=== PATIENT | male | born 1950 | race Caucasian/White ===

== ENCOUNTER → 2019-09-25 08:23 | Outpatient (BNVA) | payer MEDICARE, SELFPAY | PROVIDERS: PCP Urology; Visit Provider Urology | DX: R35.0 Frequency of micturition (principal); C61 Malignant neoplasm of prostate; Z87.898 Personal history of other specified conditions | CPT/HCPCS: 81001; 84153 ==

== ENCOUNTER → 2020-03-30 08:12 | Outpatient (BNVA) | payer MEDICARE, SELFPAY | PROVIDERS: PCP Urology; Visit Provider Urology | DX: C61 Malignant neoplasm of prostate (principal); R39.9 Unspecified symptoms and signs involving the genitourinary system; Z87.448 Personal history of other diseases of urinary system | CPT/HCPCS: 84153 ==

== ENCOUNTER → 2020-09-28 09:07 | Outpatient (BNVA) | payer MEDICARE, SELFPAY | PROVIDERS: Visit Provider Urology | DX: C61 Malignant neoplasm of prostate (principal); R39.9 Unspecified symptoms and signs involving the genitourinary system; Z87.448 Personal history of other diseases of urinary system | CPT/HCPCS: 81003; 84153 ==

== ENCOUNTER → 2021-02-03 16:30 | Outpatient (BNVA) | payer MEDICARE, SELFPAY | PROVIDERS: Visit Provider Family Medicine | DX: Z76.89 Persons encountering health services in other specified circumstances (principal); I10 Essential (primary) hypertension; Z85.46 Personal history of malignant neoplasm of prostate; M17.10 Unilateral primary osteoarthritis, unspecified knee; M54.50 Low back pain, unspecified | CPT/HCPCS: 80053; 85025 ==

== ENCOUNTER → 2021-03-31 09:39 | Outpatient (BNVA) | payer MEDICARE, SELFPAY | PROVIDERS: PCP Family Medicine; Visit Provider Urology | DX: R39.9 Unspecified symptoms and signs involving the genitourinary system (principal); C61 Malignant neoplasm of prostate; Z87.448 Personal history of other diseases of urinary system | CPT/HCPCS: 81003; 84153 ==

== ENCOUNTER → 2021-06-07 13:04 | Outpatient (BNVA) | payer MEDICARE, SELFPAY | PROVIDERS: PCP Family Medicine; Referring Provider Family Medicine; Visit Provider Orthopaedic Surgery | DX: M17.11 Unilateral primary osteoarthritis, right knee (principal) | CPT/HCPCS: 73560; 73565 ==

== ENCOUNTER → 2021-07-14 12:16 | Outpatient (BNVA) | payer MEDICARE, SELFPAY | PROVIDERS: PCP Family Medicine; Visit Provider Internal Medicine | DX: I48.91 Unspecified atrial fibrillation (principal); I65.29 Occlusion and stenosis of unspecified carotid artery; R00.1 Bradycardia, unspecified; I10 Essential (primary) hypertension; E78.2 Mixed hyperlipidemia; Z87.891 Personal history of nicotine dependence | CPT/HCPCS: 93005; 99203; 99204 ==

== ENCOUNTER → 2021-08-12 10:00 | Day surgery (SDC) | payer MEDICARE, SELFPAY ==
[2021-08-12 10:30] LABS: Basophils % 0.2 %; Eosinophils # 0.2 10^3/uL (0.0-0.8); Eosinophils % 3.3 %; Hematocrit 40.7 % (42.0-52.0); Hemoglobin 13.4 g/dL (11.7-16.6); Lymphocytes # 1.7 10^3/uL (0.8-4.8); Lymphocytes % 31.9 %; Mean Corpuscular HGB Conc 32.9 g/dL (30.0-36.0); Mean Corpuscular Volume 91.3 fl (80-94); Mean Platelet Volume 8.5 fL (7.4-10.4); Monocytes # 0.8 10^3/uL (0.2-0.9); Monocytes % 14.1 %; Neutrophils # 2.71 10^3/uL (1.8-7.7); Neutrophils % 50.1 %; Nucleated Red Blood Cells % 0 %; Platelet Count 315 10^3/cmm (130-400); Red Blood Count 4.46 10^6/uL (4.1-5.3); White Blood Count 5.4 10^3/uL (4.0-10.0)
[2021-08-12 10:44] LABS: Anion Gap 9.4 (5-19); Blood Urea Nitrogen 13 mg/dL (8-23); Calcium 9.5 mg/dL (8.5-10.5); Carbon Dioxide 32 mmol/L (22-29); Chloride 101 mmol/L (98-107); Glucose 98 mg/dL (65-115); Osmolality Calculated 286 mOsm/kg (285-295); Potassium 4.4 mmol/L (3.5-5.1); Sodium 138 mmol/L (136-145)
== END ==
PROVIDERS: Anesthesiology; PCP Family Medicine; Visit Provider Orthopaedic Surgery
DX: Z01.818 Encounter for other preprocedural examination (principal)
CPT/HCPCS: 36415; 80048; 85025; 93005

== ENCOUNTER 2021-10-10 10:19 | Outpatient (CLI) | payer MEDICARE, SELFPAY ==
--- NOTE | 2021-10-10 11:00 | USCV_ITS ---
Lauren Thornton Age: 70 Gender: M : 1950 Exam Date: 10/10/2021 10:36 Ordering Phys: Charles Malik M.D ([email or web address]) Technologist: Anabella Garza [place] [facility] [place]: Known 70% stenosis of CCA Risk Factors: Unknown Previous Vascular Surgery: None Right Brachial BP: / Left Brachial BP: / Right Left Velocity (cm/s) Spectral Plaque Velocity (cm/s) Spectral Plaque Syst/Diast Broadening Syst/Diast Broadening 92.60/ 14.30 Prox CCA 72.80 / 14.30 62.80/ 18.70 Mid CCA 95.90 / 18.70 68.40/ 16.50 Hetro Distal CCA 80.50 / 20.90 124.55/21.85 Hetro Prox ICA 53.40 / 10.10 49.10/ 10.20 Mid ICA 94.80 / 19.80 40.80/ 11.20 Distal ICA 55.50 / 17.60 215.10 Hetro ECA 84.90 1.98 ICA/CCA 0.99 Antegrade Vertebral Antegrade 48.20/ 10.10 cm/s 50.20/ 13.40 cm/s Tri Subclavian Tri 97.00 88.60 FINDINGS Comparison: none available. Abnormal waveforms and velocities right carotid system. Reversal of flow from ECA to ICA and decreased velocity right CCA. Large amount of plaque proximal to the bifurcation of right carotid. Abnormal waveform right CCA and vertebral artery and subclavian artery. Finding are likley due to obstruction at the origins of right CCA and innominate/subclavian . Still patent but not allowing sufficient blood to ICA therefore compensation from ECA. Velocity decreased in right CCA and vertebral artery. Large amount of mixed plaque in the distal right CCA may be resulting in the abnormal waveform in the CCA and reversal of flow in the ECA.That would not explain the abnormal waveform in the right subclavian and vertebral arteries. Left carotid normal velocity with mild atherosclerotic plaque. Antegrade vertebral artery. CONCLUSIONS Abnormal velocity and wavefroms right carotid system. 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 Stenois suspected at the distal CCA resulting in the ICA steal from the ECA. Suspect proximal high grade stenosis near origin of CCA and innominate artery. To explain the right vertebral and subclavian artery abnormal waveforms. Recommend CTA Carotid arteries with attention also to the great vessels from aorta. Dr. Jessica Don DO (Electronically Signed) Final Date: 10 October 2021 12:04 Amended: 10 October 2021 12:49 C
== END 2021-10-10 10:20 | disposition home or self-care (01) ==
LOC: RAD 10:20
PROVIDERS: PCP Family Medicine; Visit Provider Internal Medicine
DX: I65.23 Occlusion and stenosis of bilateral carotid arteries (principal)
CPT/HCPCS: 93880

== ENCOUNTER 2022-04-04 06:55 | Emergency (ER) | payer MEDICARE, SELFPAY ==
[2022-04-04 06:59] VITALS: BP 148/83; PULSE 104; RESP 20; TEMP 37.1; O2SAT 96; BMI 31.3
[2022-04-04 07:36] VITALS: PULSE 85; O2SAT 98
--- NOTE | 2022-04-04 07:41 | ED_ITS ---
HPI - General Adult General: Chief complaint: General Medical Stated complaint: tingling from left ear down neck Time Seen by Provider: 04/04/22 07:06 Source: patient Mode of arrival: ambulatory History of Present Illness: 71-year-old male presents emergency room with complaints of pain in his neck rating down the shoulder and into the arm. Patient has had that sensation for over a week but last night it seemed to increase by moving the arm or the neck he is able to improve it some. He has previously had a fusion after a neck injury several decades ago while in [place]. He has somewhat decreased sensation in the left arm. He has no other focal neurologic deficits. No recent new injuries to the neck. Onset (ago): week(s) Location: neck Radiation: extremity (Left shoulder and arm) Quality: burning Pain Consistency: intermittent Relieving factors: movement Exacerbating factors: none Associated symptoms: Deny chest pain, confusion, cough, diaphoresis, decreased appetite, dyspnea, fevers/chills, headache(s), malaise, nausea, rash, palpitations, seizures, short of breath, syncope, vomiting or weakness Treatments prior to arrival: none Review of Systems Const: Denies: fever(s), chills, fatigue, malaise or diaphoresis ENMT: Denies: throat pain, ear or mastoid pain, nasal discharge or nasal congestion Card: Denies: chest pain, palpitations or syncope Resp: Denies: dyspnea GI: Denies: abdominal pain, nausea or vomiting : Denies: flank pain, dysuria, urinary frequency or urinary urgency Musc: Reports: neck pain and extremity pain Skin/Breast: Denies: rash Neuro: Denies: headache(s) or confusion PFS ED PFSH: Medical History Prostate cancer Surgical History H/O cardiac radiofrequency ablation H/O cervical discectomy H/O colonoscopy H/O knee surgery Family History Mother , at age 90 No problems noted. Father , at age 66 Stroke Social History Smoking and tobacco status: never smoked Alcohol intake: current Alcohol intake frequency: few times a month Marital status: Current occupational status: disabled History of recent travel: No Physical Exam Const: COMMON NORMALS: no acute distress GENERAL APPEARANCE: cooperative and comfortable ORIENTATION/CONSCIOUSNESS: Yes awake, Yes oriented to person, Yes oriented to place and Yes oriented to time HENMT: COMMON NORMALS: normocephalic, atraumatic and hearing grossly normal bilaterally HEAD & SCALP: normocephalic and atraumatic Neck/C-Spine: COMMON NORMALS: full ROM Resp: COMMON NORMALS: normal respiratory effort, No retractions, No use of accessory muscles and clear to auscultation bilaterally AUSCULTATION: clear to auscultation bilaterally Cardio: COMMON NORMALS: regular rate, regular rhythm and No murmurs present (Cardio) RATE: regular rate RHYTHM: regular rhythm GI: COMMON NORMALS: Soft to palpation and No hepatosplenomegaly present AUSCULTATION: Yes normoactive bowel sounds PALPATION: Yes Soft to palpation, No Tenderness to palpation present (GI), No Guarding due to palpation present (GI) and Yes No hepatosplenomegaly present Extremity: COMMON NORMALS: normal to inspection, capillary refill normal, no clubbing, cyanosis or edema, no calf tenderness and no pedal edema Neuro: SENSORIUM/ORIENTATION: Yes oriented to person, Yes oriented to place and Yes oriented to time DEEP TENDON REFLEXES: Right triceps reflex intensity grade: 2+, Left triceps reflex intensity grade: 1+, Rt Biceps (C5, C6): 2+, Left biceps reflex intensity grade: 1+, Right brachioradialis reflex intensity grade: 1+ and Left brachioradialis reflex intensity grade: 0 OTHER: Patient reports slightly decreased sensation left hand compared to the right erp programmer strength is equal. Skin: COMMON NORMALS: no rashes or lesions noted GENERAL SKIN EXAM: no rashes or lesions noted Course Vital Signs: Vital signs: Vital Signs Temperature 98.8 F 04/04/22 06:59 Pulse Rate 104 H 04/04/22 06:59 Respiratory Rate 20 H 04/04/22 06:59 Blood Pressure 148/83 04/04/22 06:59 Pulse Oximetry 96 04/04/22 06:59 Oxygen Delivery Me thod 04/04/22 06:59 [facility] - General Adult Medical Decision Making On exam patient has signs of cervical radiculopathy there is no focal neurologic deficits nothing to suggest acute CVA. He has occlusion of the left carotid artery but that is diagnosed 5 to 6 months ago. He has no sign of acute CVA at this time. I think his symptoms are much more indicative of cervical nerve root irritation or compression. Offered to refer the patient to orthopedic spine surgery or neurosurgery he declined he wanted to make his own follow-up he was not sure he was really kind of pursuing things previously had surgery on his neck he states he really does not wish to pursue anything any further his biggest concern was that he may be having a stroke Medical Records I reviewed the patient's medical records. Lab Data I reviewed the patient's lab results. Discharge Plan Discharge Patient Disposition: Home Clinical Impression: Cervical radiculopathy Condition: Stable Prescriptions: New prednisone 20 mg tablet 20 mg PO TID Qty: 15 0RF Rx Instructions: 1 p.o. 3 times daily x3 days, 1 p.o. twice daily x2 days, 1 p.o. daily x2 days tizanidine 4 mg tablet 4 mg PO Q8H PRN (Reason: muscle spasticity) Qty: 20 0RF No Action omega-3 acid ethyl esters 1 gram capsule 2 cap PO BID diltiazem HCl 180 mg capsule,extended release 24 hr 180 mg PO DAILY Qty: 90 1RF uavazlpocz-nwqjkbxoa-pwsjyapff 5-160-25 mg tablet 1 tab PO DAILY Qty: 30 5RF ezetimibe 10 mg tablet 10 mg PO DAILY Qty: 30 5RF metoprolol tartrate 50 mg tablet 50 mg PO BID Qty: 60 5RF sucralfate [Carafate] 1 gram tablet 1 g PO TID Qty: 90 5RF omeprazole 20 mg capsule,delayed release(DR/EC) 20 mg PO BID Qty: 60 5RF aspirin 325 mg tablet 325 mg PO DAILY Qty: 90 3RF citalopram [Celexa] 40 mg tablet 40 mg PO DAILY Qty: 30 5RF atorvastatin 80 mg tablet 80 mg PO DAILY Qty: 30 5RF gabapentin 600 mg tablet See Rx Instructions PO TID Qty: 90 5RF Rx Instructions: Take one tab in the morning, one at noon, and one at night. cyclobenzaprine 10 mg tablet 10 mg PO TID Qty: 60 2RF amitriptyline 25 mg tablet 25 mg PO DAILY Qty: 90 2RF ropinirole 4 mg tablet See Rx Instructions .ROUTE .COMPLEX Qty: 90 1RF Dose Instruction: TAKE 1 TABLET BY MOUTH EVERY DAY Rx Instructions: TAKE 1 TABLET BY MOUTH EVERY DAY tamsulosin 0.4 mg capsule See Rx Instructions .ROUTE .COMPLEX Qty: 180 0RF Dose Instruction: TAKE 1 CAPSULE BY MOUTH TWICE DAILY Rx Instructions: TAKE 1 CAPSULE BY MOUTH TWICE DAILY Discharge Orders: Discharge ED (Routine); Ordered 04/04/22 Ordered By: Navin Freeman Referrals: Dennys Siddiqui DO [Primary Care Provider] - Patient Instructions: Opioid Safety, Pain Management Activity Restrictions/Additional Instructions: You were seen today for left arm neck and arm pain. I recommend that you fol low-up either with your primary care or the orthopedic spine surgery or neurosurgery your exam and history today are suggestive of a cervical nerve impingement. You are given muscle relaxers and steroid taper to relieve your symptoms. You can take Tylenol with these as well. If symptoms worsen or change follow-up with primary care for further imaging and evaluation if appropriate. Coding Level of Care Code ED Critical Care Unit Manager for Sky Diaz NIH stroke score NIHSS Level Of Consciousness - 1a: 0 Level Of Consciousness Questions - 1b: Both Correct Level Of Consciousness Commands - 1c: Both Correct Best Gaze - 2: Normal Visual Lopez - 3: No Visual Loss Facial Palsy - 4: Normal Motor Arm Right - 5: No Drift Motor Arm Left - 5: No Drift Motor Leg Right - 6: No Drift Motor Leg Left - 6: No Drift Limb Ataxia - 7: Absent Sensory - 8: Mild To Moderate Loss (Left hand) Best Language - 9: No Aphasia Dysarthia - 10: Normal Extinction And Inattention - 11: 0 Score Total Score: 1
[2022-04-04] MEDS: dexamethasone 10 mg/mL INJ IM (08:05)
[2022-04-04] MEDS: orphenadrine 30 mg/mL Inj 2 mL 60 MG IM (08:06)
[2022-04-04 08:11] VITALS: BP 144/89; PULSE 96; O2SAT 97
== END 2022-04-04 08:10 | disposition home or self-care (01) ==
PROVIDERS: Emergency Provider Family Medicine; PCP Family Medicine
DX: M54.12 Radiculopathy, cervical region (principal); Z79.82 Long term (current) use of aspirin; Z85.46 Personal history of malignant neoplasm of prostate
CPT/HCPCS: 96372; 99284; J1100; J2360

== ENCOUNTER 2022-04-04 08:44 | Outpatient (CLI) | payer MEDICARE, SELFPAY ==
[2022-04-04 09:39] LABS: Prostate Specific AG Urology 0.55 ng/mL (0-4)
== END 2022-04-04 08:45 | disposition home or self-care (01) ==
LOC: LAB 08:46
PROVIDERS: PCP Family Medicine; Visit Provider Urology
DX: C61 Malignant neoplasm of prostate (principal)
CPT/HCPCS: 36415; 84153

== ENCOUNTER → 2022-06-13 09:08 | Outpatient (BNVA) | payer MEDICARE, SELFPAY | PROVIDERS: PCP Family Medicine; Visit Provider Family Medicine | DX: E78.2 Mixed hyperlipidemia (principal); I10 Essential (primary) hypertension; I25.10 Atherosclerotic heart disease of native coronary artery without angina pectoris | CPT/HCPCS: 80053; 80061; 85025 ==

== ENCOUNTER → 2023-02-28 09:32 | Outpatient (BNVA) | payer MEDICARE, SELFPAY | PROVIDERS: PCP Family Medicine; Visit Provider Family Medicine | DX: C61 Malignant neoplasm of prostate (principal); I25.10 Atherosclerotic heart disease of native coronary artery without angina pectoris; Z79.899 Other long term (current) drug therapy; I48.91 Unspecified atrial fibrillation; I65.29 Occlusion and stenosis of unspecified carotid artery; E78.2 Mixed hyperlipidemia | CPT/HCPCS: 80053; 80061; 83036; 84153; 85025 ==

== ENCOUNTER 2023-03-09 13:59 | Outpatient (CLI) | payer MEDICARE, SELFPAY ==
--- NOTE | 2023-03-09 14:30 | CT_ITS ---
WS: [id number] CTA NECK TECHNIQUE: Contrast enhanced CTA of the neck with coronal and sagittal reformatted images and maximum intensity projection (MIP) images. NASCET criteria utilized. CLINICAL INFORMATION: Carotid stenosis COMPARISON: Ultrasound 10/10/2021 DLP: 477.[address] scans at [facility] use at least one of these dose optimization techniques: automated e xposure control; mA and/or kV adjustment per patient size (includes targeted exams where dose is matc hed to clinical indication); or iterative reconstruction. FINDINGS: Mild aortic arch calcification. Mild calcification of the great vessel origins which remain patent. Proximal subclavian arteries are patent. No significant stenosis of the great vessel origins . RIGHT: RIGHT common carotid artery is patent. RIGHT proximal ICA stenosis measures approximately 37%. Moderate partially calcified irregular plaque in the distal RIGHT common carotid artery extending in to the ICA. RIGHT ICA remains patent to the skull base. Retropharyngeal course of the RIGHT cervical ICA. Severe stenosis at the ECA origin which remains patent. LEFT: LEFT common carotid artery is patent. Moderate calcified plaque LEFT carotid bulb extending to the ICA. LEFT ICA remains patent to the skull base. LEFT dominant vertebral artery. Tiny hypoplastic RIGHT vertebral artery remains patent. Basilar arter y is patent. Proximal visualized [place] appears normal. Lung apices are well aerated. Paranasal sinuses and mastoid air cells are well aerated. Normal propagation worker ior nasopharynx. Moderate to advanced spondylitic changes cervical spine. IMPRESSION: 1. RIGHT ICA stenosis measures approximately 37%. 2. Severe RIGHT ECA stenosis at the origin which remains patent. 3. LEFT ICA stenosis measures approximately 35%. 4. Moderate RIGHT greater than LEFT carotid bulb calcification extending to the ICAs. Eccentric irre gular plaque in the distal RIGHT common carotid artery. 5. LEFT dominant vertebral artery. Tiny hypoplastic RIGHT vertebral artery remains patent. Vertebral arteries are patent to the basilar junction. 6. Proximal visualized [place] of [place] appears patent.
[2023-03-09] MEDS: iohexol 350 mg/mL 500 mL Btl (per mL) IV (14:35)
== END 2023-03-09 14:00 | disposition home or self-care (01) ==
LOC: RAD 14:00
PROVIDERS: PCP Family Medicine; Visit Provider Family Medicine
DX: I65.23 Occlusion and stenosis of bilateral carotid arteries (principal)
CPT/HCPCS: 70498; Q9967

== ENCOUNTER → 2023-03-29 10:10 | Outpatient (BNVA) | payer MEDICARE, SELFPAY | PROVIDERS: PCP Family Medicine; Referring Provider Family Medicine; Visit Provider Thoracic Surgery (Cardiothoracic Vascular Surgery) | DX: I65.23 Occlusion and stenosis of bilateral carotid arteries (principal) | CPT/HCPCS: 99203 ==

== ENCOUNTER 2023-12-10 07:35 | Outpatient (CLI) | payer MEDICARE, SELFPAY ==
--- NOTE | 2023-12-10 07:39 | CT_ITS ---
WS: [id number] CT HEAD NONCONTRAST HISTORY: MEMORY LOSS TECHNIQUE: Contiguous axial imaging performed through the brain in 3.0 mm imaging. Bone and soft tiss ue windows. Sagittal and coronal reformats reviewed. All CT scans at [facility] use at least one of these dose optimization techniques: automated exposure control; mA and/or kV adjustment per pa tient size (includes targeted exams where dose is matched to clinical indication); or iterative recon struction. DLP: 1158.90 mGy.cm COMPARISON: None available. No acute intracranial hemorrhage, midline shift or mass effect. Moderate bilateral symmetric atrophy and mild small vessel disease. No infarct. Ventricles: Normal size with no hydrocephalus. No inferior displacement of cerebellar tonsils. Clivus and pituitary gland are negative. Paranasal sinuses: As visualized are clear. Mastoid air cells: Well pneumatized. Calvarium and scalp: Skull is intact with no soft tissue edema or swelling. CT/CT head wo con* [id number] IMPRESSION: 1. No acute intracranial hemorrhage or edema. 2. Moderate atrophy and volume loss and mild small vessel disease.
== END 2023-12-10 07:36 | disposition home or self-care (01) ==
LOC: RAD 07:36
PROVIDERS: PCP Internal Medicine; Visit Provider Internal Medicine
DX: R41.3 Other amnesia (principal); G31.9 Degenerative disease of nervous system, unspecified
CPT/HCPCS: 70450

== ENCOUNTER 2024-06-13 06:30 | Outpatient (CLI) | payer MEDICARE, SELFPAY ==
--- NOTE | 2024-06-13 06:36 | US_ITS ---
WS: [id number] RIGHT UPPER QUADRANT ULTRASOUND HISTORY: RUQ Pain COMPARISON: 01/11/2017 Liver: 15.2 cm in length. Normal size liver and echogenicity. No bile duct dilatation or mass. Portal Vein: Normal hepatopetal flow with monophasic waveform. Gallbladder: Slightly contracted gallbladder with mild gallbladder wall thickening. No pericholecystic fluid. Gallbladder wall measures 5 mm. CBD: 0.5 cm Pancreas: Not visualized. Right kidney: 13.0 cm in length. Normal size and echogenicity. No hydronephrosis or mass. Aorta and IVC: Unremarkable abdominal aorta and IVC. No ascites. US/US abdomen limited [id number] IMPRESSION: 1. Slightly contracted gallbladder. No evidence for cholelithiasis. Gallbladde r wall thickening may be due to chronic cholecystitis cystitis or hepatocellula r disease. No ascites identified. 2. Negative liver. No intrahepatic duct dilatation.
== END 2024-06-13 06:31 | disposition home or self-care (01) ==
PROVIDERS: PCP Internal Medicine; Visit Provider Internal Medicine
DX: R10.11 Right upper quadrant pain (principal); R93.3 Abnormal findings on diagnostic imaging of other parts of digestive tract
CPT/HCPCS: 76705

== ENCOUNTER 2024-06-21 08:24 | Emergency (ER) | payer MEDICARE, SELFPAY ==
[2024-06-21 08:27] VITALS: BP 100/77; PULSE 83; RESP 17; TEMP 36.4; O2SAT 93; BMI 30.2
--- NOTE | 2024-06-21 08:46 | XRR_ITS ---
PROCEDURE INFORMATION: Exam: XR Chest Exam date and time: 06/21/2024 8:54 AM Age: 73 years old Clinical indication: Pain; Chest pressure; Additional info: Chest pain TECHNIQUE: Imaging protocol: Radiologic exam of the chest. Views: 1 view. COMPARISON: CT angio neck [id number] 03/09/2023 2:24 PM FINDINGS: Lungs: Unremarkable. No consolidation. Pleural spaces: Unremarkable. No pleural effusion. No pneumothorax. Heart/Mediastinum: The heart size is at the upper limits of normal Bones/joints: There are multiple remote fracture deformities of the right 3rd through 9th ribs. There are also mildly displaced fractures of the right lateral 5th and 6th ribs which are of indeterminate age without significant callus formation XR/XR chest 1V portable [id number] IMPRESSION: 1. Remote fracture deformities of the right 3rd through 9th ribs and mildly displaced fractures of the right lateral 5th and 6th ribs without significant callus formation which are of indeterminate age. 2. Borderline cardiomegaly without acute infiltrates
--- NOTE | 2024-06-21 08:46 | ECG_ITS ---
[facility] Test Date: 2024-06-21 Pat Name: Lauren Thornton Department: Room: Gender: Male Manager Cosmetic: : 1950 Requested By: Radha Beltran Order Number: [id number] Zackary MD: Charles Malik M.D. Measurements Intervals [place] Rate: 72 P: 0 MD: 0 QRS: 109 QRSD: 101 T: 113 QT: 420 QTc: 462 Interpretive Statements ATRIAL FIBRILLATION RIGHT AXIS DEVIATION [QRS AXIS > 100] MODERATE T-WAVE ABNORMALITY, CONSIDER ANTEROLATERAL ISCHEMIA [-0.1+ mV T-WAVE IN V3-V6] Compared to ECG 08/12/2021 10:04:44 Right-axis deviation now present T-wave abnormality now present Possible ischemia now present Sinus bradycardia no longer present Electronically Signed On 06-21-2024 18:12:24 CDT by Charles Malik M.D. [email or web address]
[2024-06-21 08:52] LABS: Basophils % 0.3 %; Eosinophils % 0.3 %; Hematocrit 46.6 % (37-53); Lymphocytes # 1.3 10^3/uL (0.8-4.8); Lymphocytes % 20.8 %; Mean Corpuscular HGB Conc 32.4 g/dL (30-55); Mean Corpuscular Hemoglobin 30.6 pg (27-33); Mean Corpuscular Volume 94.3 fl (82-101); Mean Platelet Volume 9.8 fL (7.4-10.4); Monocytes # 0.4 10^3/uL (0.2-0.9); Monocytes % 5.9 %; Neutrophils # 4.42 10^3/uL (1.8-7.7); Neutrophils % 72.5 %; Nucleated Red Blood Cells % 0 %; Platelet Count 261 10^3/cmm (157-399); Red Blood Count 4.94 10^6/uL (3.85-5.65); Red Cell Distribution Width 13.1 % (12.1-15.1)
[2024-06-21 09:08] LABS: Troponin(5th) Baseline 19 ng/L (0-15)
[2024-06-21 09:14] LABS: Alanine Aminotransferase 28 U/L (0-41); Albumin Level 4.5 g/dL (3.5-5.2); Alkaline Phosphatase 103 U/L (40-130); Aspartate Amino Transferase 29 U/L (0-40); Blood Urea Nitrogen 15 mg/dL (8-23); Calcium 9.3 mg/dL (8.5-10.5); Carbon Dioxide 24 mmol/L (22-29); Chloride 101 mmol/L (98-107); Creatinine Clr Calc Pharmacy 76.2971; Globulin 2.4 g/dL (1.3-4.6); Glucose 200 mg/dL (65-115); Lipase 174 U/L (13-60); NT Pro B Type Natriuretic Pept 2328 pg/mL (0-125); Osmolality Calculated 286 mOsm/kg (285-295); Sodium 135 mmol/L (136-145); Total Bilirubin 0.5 mg/dL (0.15-1.2); Total Protein 6.9 g/dL (6.6-8.7)
[2024-06-21 09:16] LABS: Anion Gap 14.9 (5-19); Potassium 4.9 mmol/L (3.5-5.1)
--- NOTE | 2024-06-21 10:46 | ECG_ITS ---
[email or web address]24[facility]21 Pat Name: Lauren Thornton Department: Room: Gender: Male Director Of [employer]: : 1950 Requested By: Radha Beltran Order Number: [id number] Reading MD: GARRETT WILSON Measurements Intervals [place] Rate: 81 P: 0 WI: 0 QRS: 107 QRSD: 96 T: 109 QT: 409 QTc: 477 Interpretive Statements ATRIAL FIBRILLATION RIGHT AXIS DEVIATION [QRS AXIS > 100] MODERATE T-WAVE ABNORMALITY, CONSIDER LATERAL ISCHEMIA [-0.1+ mV T-WAVE IN I/aVL/V5/V6] Compared to ECG 06/21/2024 08:27:48 No significant changes Electronically Signed On 06-22-2024 22:05:49 CDT by GARRETT WILSON [email or web address]
[2024-06-21 11:11] LABS: Troponin 5 2HR 11.97 ng/L (0-15)
[2024-06-21 11:12] LABS: Troponin 5 2HR Delta -7.03 ABS# (0-10)
[2024-06-21 11:52] VITALS: BP 100/74; BP 106/78; BP 120/68; PULSE 85; PULSE 87; PULSE 98
--- NOTE | 2024-06-21 12:51 | W.ED.CHESTPA ---
HPI - Chest Pain General: Chief Complaint: Chest Pain Stated Complaint: cp Time Seen by Provider: 06/21/24 08:31 History of Present Illness: This patient is a 73-year-old male presenting with symptoms of his A-fib. He reports that he has been feeling lightheaded, short of breath, getting chest discomfort when he gets up and moves around. It does not usually happen when he is at rest. It does not always happen when he gets up but happens most of the time. This has been going on for some time but has been worse in the last couple of days. He has a history of atrial fibrillation. He has had an ablation. His medical care over the past few years has been done in [place]. He is supposed to be getting an angio after he had an echo showing a valve problem. He has never had any stents placed. He also says that he has a lifelong history of stomach ulcers. He has been having symptoms of his ulcers acting up including black stools and pain. He stopped taking all of my medicines several days ago because of the symptoms and the symptoms have now resolved. He says his stomach feels fine and he is no longer having the black stools. He restarted his medications last night. His symptoms related to his A-fib seem to be worse today. Related Data Home Medications ?Medication ?Instructions ?Recorded ?Confirmed atorvastatin 40 mg tablet 40 mg PO DAILY 06/21/24 06/21/24 fluticasone furoate 100 1 ea inhalation DAILY 06/21/24 06/21/24 mcg-vilanterol 25 mcg/dose inhalation powder (Breo Ellipta) tamsulosin 0.4 mg capsule 0.4 mg PO BID 06/21/24 06/21/24 Previous Rx's ?Medication ?Instructions ?Recorded ropinirole 4 mg tablet See Rx Instructions .Route 05/11/23 .COMPLEX #90 tabs omeprazole 20 mg capsule,delayed See Rx Instructions .Route 05/21/23 release .COMPLEX #180 caps Allergies Allergy/AdvReac Type Severity Reaction Status Date / Time codeine Allergy unknown Verified 03/29/23 10:39 rosuvastatin Allergy Unknown Verified 03/29/23 10:39 [facility] ED PFS: Medical History Prostate cancer Surgical History H/O colonoscopy H/O cardiac radiofrequency ablation H/O knee surgery H/O cervical discectomy Family History Mother , at age 90 No problems noted. Father , at age 66 Stroke Social History Smoking and tobacco/nicotine status: never used tobacco/nicotine Alcohol intake: current Alcohol intake frequency: few times a month Substance/Drug Use: current Substance/Drug use frequency: daily Marital status: Current occupational status: disabled Physical Exam Const: COMMON NORMALS: no acute distress, patient oriented x3, no limitations and alert GENERAL APPEARANCE: cooperative and comfortable HENMT: HEAD & SCALP: normal to inspection FACE & SINUS: normal facial exam Eye: GENERAL EYE: appearance normal, both eyes and all related structures Neck/C-Spine: COMMON NORMALS: supple, no meningeal signs and no JVD Chest: COMMONS NORMALS: normal inspection of the chest Resp: COMMON NORMALS: normal respiratory effort, No use of accessory muscles and clear to auscultation bilaterally AUSCULTATION: clear to auscultation bilaterally Cardio: COMMON NORMALS: no JVD, regular rate, regular rhythm and No murmurs present (Cardio) RATE: regular rate RHYTHM: regular rhythm GI: COMMON NORMALS: Normal to inspection, nondistended, normoactive bowel sounds present, Soft to palpation and non-tender INSPECTION: Yes normal to inspection AUSCULTATION: Yes normoactive bowel sounds PALPATION: Yes Soft to palpation Back/Pelvis: COMMON NORMALS: thoracic and lumbar spine normal to inspection Extremity: COMMON NORMALS: normal to inspection Neuro: COMMON NORMALS: patient oriented x3, moves all extremities, no focal motor deficits and no sensory deficits noted SENSORIUM/ORIENTATION: Yes alert MENINGEAL SIGNS: Yes no meningeal signs Psych: COMMON NORMALS: mental status grossly normal, cooperative and normal affect Skin: COMMON NORMALS: no rashes or lesions noted and turgor normal GENERAL SKIN EXAM: no rashes or lesions noted and turgor normal Course Vital Signs: Vital signs: Vital Signs Temperature 97.6 F 06/21/24 08:27 Pulse Rate 93 06/21/24 13:02 Respiratory Rate 17 06/21/24 08:27 Blood Pressure 97/54 06/21/24 13:02 Pulse Oximetry 96 06/21/24 13:02 Oxygen Delivery Me thod Room Air 06/21/24 13:02 MDM - Chest Pain Medical Decision Making This patient is presenting with concerning symptoms of exertional dyspnea and chest heaviness but these occur with just simply standing up and walking. He does have a history of A-fib and an ablation. His EKG today is significantly different from previous but the most recent we have here is about 3 years ago and was prior to his ablation. There were no serial changes to the EKG here. Troponin was negative for any change management administrator the first 2 samples. I discussed options with the patient. He is feeling better and feels like he could go home. 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 Given his overall negative workup here I think he is safe to go home. He was able to ambulate in the ED without any significant symptoms. Lab Data 06/21/24 08:42 06/21/24 08:42 Radiology Impressions Chest X-Ray 06/21/24 08:46 IMPRESSION: 1. Remote fracture deformities of the right 3rd through 9th ribs and mildly displaced fractures of the right lateral 5th and 6th ribs without significant callus formation which are of indeterminate age. 2. Borderline cardiomegaly without acute infiltrates Laboratory Results WBC 6.10 10^3/uL (3.29-11.43) 06/21/24 08:42 RBC 4.94 10^6/uL (3.85-5.65) 06/21/24 08:42 Hgb 15.10 g/dL (11.27-16.99) 06/21/24 08:42 Hct 46.6 % (37-53) 06/21/24 08:42 MCV 94.3 fl (82-101) 06/21/24 08:42 MCH 30.6 pg (27-33) 06/21/24 08:42 MCHC 32.4 g/dL (30-55) 06/21/24 08:42 RDW 13.1 % (12.1-15.1) 06/21/24 08:42 Plt Count 261 10^3/cmm (157-399) 06/21/24 08:42 MPV 9.8 fL (7.4-10.4) 06/21/24 08:42 Neut % (Auto) 72.5 % 06/21/24 08:42 Lymph % (Auto) 20.8 % 06/21/24 08:42 [place] % (Auto) 5.9 % 06/21/24 08:42 Eos % (Auto) 0.3 % 06/21/24 08:42 Baso % (Auto) 0.3 % 06/21/24 08:42 Neut # (Auto) 4.42 10^3/uL (1.8-7.7) 06/21/24 08:42 Lymph # (Auto) 1.3 10^3/uL (0.8-4.8) 06/21/24 08:42 [place] # (Auto) 0.4 10^3/uL (0.2-0.9) 06/21/24 08:42 Eos # (Auto) 0.0 10^3/uL (0.0-0.8) 06/21/24 08:42 Baso # (Auto) 0.0 10^3/uL (0.0-0.1) 06/21/24 08:42 Nucleated RBC % (auto) 0 % 06/21/24 08:42 Nucleated RBCs # 0.0 /100WBC 06/21/24 08:42 PT 14.00 SECONDS (12.1-14.9) 06/21/24 08:42 INR 1.00 (0.8-1.2) 06/21/24 08:42 Sodium 135 mmol/L (136-145) L 06/21/24 08:42 Potassium 4.9 mmol/L (3.5-5.1) 06/21/24 08:42 Chloride 101 mmol/L (98-107) 06/21/24 08:42 Carbon Dioxide 24 mmol/L (22-29) 06/21/24 08:42 Anion Gap 14.9 (5-19) 06/21/24 08:42 BUN 15 mg/dL (8-23) 06/21/24 08:42 Creatinine 1.0 mg/dL (0.7-1.2) 06/21/24 08:42 GFR Calculation Not Reportable 06/21/24 08:42 Glucose 200 mg/dL (65-115) H 06/21/24 08:42 Calculated Osmolality 286 mOsm/kg (285-295) 06/21/24 08:42 Calcium 9.3 mg/dL (8.5-10.5) 06/21/24 08:42 Total Bilirubin 0.5 mg/dL (0.15-1.2) 06/21/24 08:42 AST 29 U/L (0-40) 06/21/24 08:42 ALT 28 U/L (0-41) 06/21/24 08:42 Alkaline Phosphatase 103 U/L (40-130) 06/21/24 08:42 Troponin T Baseline 19 ng/L (0-15) H 06/21/24 08:42 Troponin T 120 Minute 11.97 ng/L (0-15) 06/21/24 10:47 Delta Troponin T -7.03 ABS# (0-10) L 06/21/24 10:47 NT-Pro-B Natriuret Pep 2328 pg/mL (0-125) H 06/21/24 08:42 Total Protein 6.9 g/dL (6.6-8.7) 06/21/24 08:42 Albumin 4.5 g/dL (3.5-5.2) 06/21/24 08:42 Globulin 2.4 g/dL (1.3-4.6) 06/21/24 08:42 Lipase 174 U/L (13-60) H 06/21/24 08:42 All radiology interpretation(s) finalized by discharge Discharge Plan Discharge Patient Disposition: Home Clinical Impression: Atrial fibrillation, Acute dyspnea Condition: Stable Prescriptions: No Action ropinirole 4 mg tablet See Rx Instructions .ROUTE .COMPLEX Qty: 90 3RF Dose Instruction: TAKE 1 TABLET BY MOUTH EVERY DAY Rx Instructions: TAKE 1 TABLET BY MOUTH EVERY DAY omeprazole 20 mg capsule,delayed release(DR/EC) See Rx Instructions .ROUTE .COMPLEX Qty: 180 3RF Dose Instruction: TAKE 1 CAPSULE BY MOUTH TWICE A DAY Rx Instructions: TAKE 1 CAPSULE BY MOUTH TWICE A DAY atorvastatin 40 mg tablet 40 mg PO DAILY tamsulosin 0.4 mg capsule 0.4 mg PO BID fluticasone furoate-vilanterol [Breo Ellipta] 100-25 mcg/dose blister with device 1 ea INHALATION DAILY Discharge Orders: Discharge ED (Routine); Ordered 06/21/24 Ordered By: Radha Santo Referrals: Antonio Villalba MD [Primary Care Provider] - Patient Instructions: Opioid Safety, Pain Management Activity Restrictions/Additional Instructions: Follow up with your journeyman pipe welder - call on Sunday to let them know about this ED visit. Follow up with Dr. Villalba as well. Print Language: Uzbek Coding Level of Care Code ED Pony Worker for Sky Diaz
[2024-06-21 13:02] VITALS: BP 97/54; PULSE 93; O2SAT 96
== END 2024-06-21 14:10 | disposition home or self-care (01) ==
PROVIDERS: Emergency Provider Emergency Medicine; PCP Internal Medicine
DX: I48.91 Unspecified atrial fibrillation (principal); R06.00 Dyspnea, unspecified; Z85.46 Personal history of malignant neoplasm of prostate
CPT/HCPCS: 36415; 71045; 80053; 83690; 83880; 84484; 85025; 85610; 93005; 99285

== ENCOUNTER 2024-07-14 09:21 | Inpatient (IN) | payer MEDICARE, SELFPAY ==
[2024-07-14] VITALS (45 sets, daily range): BP systolic 87–169; BP diastolic 55–110; PULSE 114–197; RESP 17–33; TEMP 35.9–36.6; O2SAT 88–100; BMI 29.5
--- NOTE | 2024-07-14 09:27 | ECG_ITS ---
[facility] Test Date: 2024-07-14 Pat Name: Luaren Thornton Department: Room: Gender: Male [employer]: : 1950 Requested By: Zoe Eaton Order Number: [id number] Reading MD: GARRETT WILSON Measurements Intervals [place] Rate: 202 P: 0 FL: 0 QRS: 116 QRSD: 98 T: 51 QT: 231 QTc: 423 Interpretive Statements ATRIAL FIBRILLATION WITH RAPID VENTRICULAR RESPONSE POSSIBLE RIGHT VENTRICULAR HYPERTROPHY [SOME/ALL OF: PROMINENT R IN V1, LATE TRANSITION, RAD, AARON, SSS] LATERAL MYOCARDIAL INFARCTION , PROBABLY OLD [40+ ms Q WAVE AND/OR ST/T ABNORMALITY IN I/aVL/V5/V6] CRITICAL TEST RESULT Compared to ECG 06/21/2024 10:49:26 Myocardial infarct finding now present Right-axis deviation no longer present T-wave abnormality no longer present Possible ischemia no longer present Electronically Signed On 07-14-2024 20:58:14 CDT by GARRETT WILSON [email or web address]
--- NOTE | 2024-07-14 09:28 | XRR_ITS ---
PROCEDURE INFORMATION: Exam: XR Chest Exam date and time: 07/14/2024 10:02 AM Age: 73 years old Clinical indication: Shortness of breath; SOB afib, HX of prostate cancer; Additional info: Chest pain TECHNIQUE: Imaging protocol: Radiologic exam of the chest. Views: 1 view. COMPARISON: CR (CHEST, ) 06/21/2024 8:54 AM FINDINGS: Lungs: Bibasilar opacities and interstitial prominence in the mid and lower lung zones. Pleural spaces: No pleural effusion. No pneumothorax. Heart/Mediastinum: Mild cardiomegaly. Aortic calcifications. Bones/joints: Multiple remote right-sided rib fractures. There are also displaced right 5th and 6th lateral rib fractures without appreciable callus formation again demonstrated, subacute versus remote. XR/XR chest 1V portable [id number] IMPRESSION: 1. Bibasilar opacities and interstitial prominence which may be secondary to infectious/inflammatory process and/or pulmonary edema with atelectasis. 2. Mild cardiomegaly. 3. Remote and age-indeterminate right-sided rib fractures are again demonstrated as above.
[2024-07-14] MEDS: dilTIAZem 5 mg/mL SDV 5 mL 20 MG IVP (09:45)
[2024-07-14 09:46] LABS: Basophils % 0.3 %; Hematocrit 50.8 % (37-53); Lymphocytes # 1.1 10^3/uL (0.8-4.8); Lymphocytes % 14.8 %; Mean Corpuscular HGB Conc 32.1 g/dL (30-55); Mean Corpuscular Hemoglobin 30.1 pg (27-33); Mean Corpuscular Volume 93.9 fl (82-101); Mean Platelet Volume 10.1 fL (7.4-10.4); Monocytes # 0.5 10^3/uL (0.2-0.9); Monocytes % 7.4 %; Neutrophils # 5.62 10^3/uL (1.8-7.7); Neutrophils % 77.2 %; Nucleated Red Blood Cells % 0 %; Platelet Count 273 10^3/cmm (157-399); Red Blood Count 5.41 10^6/uL (3.85-5.65); Red Cell Distribution Width 13.2 % (12.1-15.1); White Blood Count 7.28 10^3/uL (3.29-11.43)
[2024-07-14] MEDS: dilTIAZem 100 MG in sodium chloride 0.9% (add-van) 100 ML IV (09:51)
--- NOTE | 2024-07-14 09:51 | W.ED.ARRPALP ---
Documented by User: ISRAEL Humphrey 07/14/24 11:10 HPI - Arrhythmia/Palpitations General: Chief Complaint: Arrhythmia/Palpitations Stated Complaint: sob, afib Time Seen by Provider: 07/14/24 09:23 Source: patient Mode of arrival: wheelchair Limitations: no limitations History of Present Illness: Patient is a 73-year-old male with history of atrial fibrillation-s/p ablation, hypertension, hyperlipidemia and carotid artery disease here for complaints of shortness of breath and palpitations. He arrives with a heart rate of 180-200 in A-fib with RVR. He tells me he is not on any medications for his atrial fibrillation due to unwanted side effects. He is not on anticoagulation. He states he was seeing cardiology through [facility] but cannot continue to drive that far. He has requested primary care placed referral for cardiology here at [facility] but this has not been completed. He states his only medications at this time are ropinirole and omeprazole. MD complaint: rapid heart beat, heart racing , palpitations, irregular heart beat and atrial fibrillation Onset (ago): month(s) Duration: intermittent Severity: moderate Context: occurred during rest Arrhythmia history: atrial fibrillation and history of ablation Associated symptoms: Reports short of breath; Deny pre-syncope or syncope Related Data Home Medications ?Medication ?Instructions ?Recorded ?Confirmed atorvastatin 40 mg tablet 40 mg PO DAILY 06/21/24 07/14/24 fluticasone furoate 100 1 ea inhalation DAILY 06/21/24 07/14/24 mcg-vilanterol 25 mcg/dose inhalation powder (Breo Ellipta) tamsulosin 0.4 mg capsule 0.4 mg PO BID 06/21/24 07/14/24 nebivolol 5 mg tablet 5 mg PO DAILY 07/14/24 07/14/24 ropinirole 4 mg tablet 4 mg PO DAILY 07/14/24 07/14/24 Previous Rx's ?Medication ?Instructions ?Recorded omeprazole 20 mg capsule,delayed See Rx Instructions .Route 05/21/23 release .COMPLEX #180 caps Allergies Allergy/AdvReac Type Severity Reaction Status Date / Time codeine Allergy unknown Verified 03/29/23 10:39 rosuvastatin Allergy Unknown Verified 03/29/23 10:39 Review of Systems Const: Denies: fever(s), chills, body aches, fatigue or malaise Card: Reports: palpitations and irregular heart rhythm; Denies: chest pain, edema, swelling of feet/ankles, syncope, pre-syncope or orthopnea Resp: Reports: dyspnea GI: Denies: abdominal pain Musc: Denies: neck pain, back pain, extremity pain or joint swelling Skin/Breast: Denies: rash Neuro: Denies: headache(s), numbness in extremities, weakness in extremities, sensory changes or dizziness PFSH ED PFSH: Medical History Prostate cancer Surgical History H/O colonoscopy H/O cardiac radiofrequency ablation H/O knee surgery H/O cervical discectomy Family History Mother , at age 90 No problems noted. Father , at age 66 Stroke Social History (Updated 07/14/24 @ 15:03 by Keyon Song MD) Smoking and tobacco/nicotine status: former use of tobacco/nicotine Alcohol intake: current Alcohol intake frequency: few times a month Substance/Drug Use: current Substance/Drug use frequency: daily Marital status: Current occupational status: disabled Physical Exam Const: COMMON NORMALS: no acute distress, average body habitus, patient oriented x3, no limitations, healthy appearing, alert and well nourished ORIENTATION/CONSCIOUSNESS: Yes awake, Yes oriented to person, Yes oriented to place and Yes oriented to time Chest: COMMONS NORMALS: normal inspection of the chest and normal palpation of entire chest wall Resp: COMMON NORMALS: normal respiratory effort and clear to auscultation bilaterally AUSCULTATION: clear to auscultation bilaterally Cardio: RATE: tachycardic RHYTHM: abnormal rhythm irregularly irregular GI: COMMON NORMALS: Normal to inspection, nondistended, normoactive bowel sounds present, Soft to palpation, non-tender and no masses PALPATION: Yes Soft to palpation Extremity: COMMON NORMALS: no clubbing, cyanosis or edema, no calf tenderness and no pedal edema GENERAL: Yes normal exam except as noted Neuro: VIDA COMA SCALE: document GCS findings [place] coma scale eye opening: Spontaneous [place] coma scale verbal response: Orientated Vida coma scale motor response: Obey commands Vida coma scale total score: 15 COMMON NORMALS: patient oriented x3, moves all extremities, no focal motor deficits and no sensory deficits noted SENSORIUM/ORIENTATION: Yes alert, Yes oriented to person, Yes oriented to place and Yes oriented to time Course Vital Signs: Vital signs: Vital Signs Temperature 97.6 F 07/14/24 11:30 Pulse Rate 135 H 07/14/24 14:00 Respiratory Rate 22 H 07/14/24 12:15 Blood Pressure 121/91 07/14/24 12:30 Pulse Oximetry 92 07/14/24 12:15 Oxygen Delivery Me thod Room Air 07/14/24 12:28 MDM - Arrhythmia/Palpitations Medical Decision Making Patient is a 73-year-old male with a history of atrial fibrillation/history of cardiac ablation. [facility] with RVR with rates of 180s to over 200. He does not take any medications currently for his atrial fibrillation. Patient was initially given an IV Cardizem bolus and started on a drip. He later returned with rates in the 140s 150s. Amiodarone bolus and drip was ordered however shortly after this he returned down to acceptable rates so we will hold off on switching at this time. CXR showing bibasilar opacities could be secondary to infectious/inflammatory process or pulmonary edema. BNP is elevated at over 7000. Echocardiogram is ordered. Dr. Song will admit patient to ICU. Dr. Freeman aware of patient and will place admit orders. Medical Records I reviewed the patient's medical records. Lab Data I reviewed the patient's lab results. 07/14/24 09:42 07/14/24 09:42 Radiology Impressions Chest X-Ray 07/14/24 09:28 IMPRESSION: 1. Bibasilar opacities and interstitial prominence which may be secondary to infectious/inflammatory process and/or pulmonary edema with atelectasis. 2. Mild cardiomegaly. 3. Remote and age-indeterminate right-sided rib fractures are again demonstrated as above. Laboratory Results WBC 7.28 10^3/uL (3.29-11.43) 07/14/24 09:42 RBC 5.41 10^6/uL (3.85-5.65) 07/14/24 09:42 Hgb 16.30 g/dL (11.27-16.99) 07/14/24 09:42 Hct 50.8 % (37-53) 07/14/24 09:42 MCV 93.9 fl (82-101) 07/14/24 09:42 MCH 30.1 pg (27-33) 07/14/24 09:42 MCHC 32.1 g/dL (30-55) 07/14/24 09:42 RDW 13.2 % (12.1-15.1) 07/14/24 09:42 Plt Count 273 10^3/cmm (157-399) 07/14/24 09:42 MPV 10.1 fL (7.4-10.4) 07/14/24 09:42 Neut % (Auto) 77.2 % 07/14/24 09:42 Lymph % (Auto) 14.8 % 07/14/24 09:42 [place] % (Auto) 7.4 % 07/14/24 09:42 Eos % (Auto) 0.0 % 07/14/24 09:42 Baso % (Auto) 0.3 % 07/14/24 09:42 Neut # (Auto) 5.62 10^3/uL (1.8-7.7) 07/14/24 09:42 Lymph # (Auto) 1.1 10^3/uL (0.8-4.8) 07/14/24 09:42 [place] # (Auto) 0.5 10^3/uL (0.2-0.9) 07/14/24 09:42 Eos # (Auto) 0.0 10^3/uL (0.0-0.8) 07/14/24 09:42 Baso # (Auto) 0.0 10^3/uL (0.0-0.1) 07/14/24 09:42 Nucleated RBC % (auto) 0 % 07/14/24 09:42 Nucleated RBCs # 0.0 /100WBC 07/14/24 09:42 Sodium 135 mmol/L (136-145) L 07/14/24 09:42 Potassium 4.6 mmol/L (3.5-5.1) 07/14/24 09:42 Chloride 98 mmol/L (98-107) 07/14/24 09:42 Carbon Dioxide 20 mmol/L (22-29) L 07/14/24 09:42 Anion Gap 21.6 (5-19) H 07/14/24 09:42 BUN 14 mg/dL (8-23) 07/14/24 09:42 Creatinine 0.8 mg/dL (0.7-1.2) 07/14/24 09:42 GFR Calculation Not Reportable 07/14/24 09:42 Glucose 197 mg/dL (65-115) H 07/14/24 09:42 Calculated Osmolality 286 mOsm/kg (285-295) 07/14/24 09:42 Calcium 9.2 mg/dL (8.5-10.5) 07/14/24 09:42 Magnesium 2.1 mg/dL (1.7-2.3) 07/14/24 09:42 Total Bilirubin 0.7 mg/dL (0.15-1.2) 07/14/24 09:42 AST 28 U/L (0-40) 07/14/24 09:42 ALT 29 U/L (0-41) 07/14/24 09:42 Alkaline Phosphatase 113 U/L (40-130) 07/14/24 09:42 Troponin T Baseline 62 ng/L (0-15) H 07/14/24 09:42 NT-Pro-B Natriuret Pep 7137 pg/mL (0-125) H 07/14/24 09:42 Total Protein 6.7 g/dL (6.6-8.7) 07/14/24 09:42 Albumin 4.4 g/dL (3.5-5.2) 07/14/24 09:42 Globulin 2.3 g/dL (1.3-4.6) 07/14/24 09:42 TSH 2.57 uIU/mL (0.27-4.20) 07/14/24 09:42 All radiology interpretation(s) finalized by discharge Discharge Plan Discharge Patient Disposition: Admitted As Inpatient Admit Provider: Keyon Song Clinical Impression: Atrial fibrillation with RVR Condition: Stable Coding Level of Care Code ED Dowel Pointer for Chg Fwd Documented by User: Navin Freeman DO 07/14/24 16:14 HPI - Arrhythmia/Palpitations General: Chief Complaint: Arrhythmia/Palpitations Stated Complaint: sob, afib Time Seen by Provider: 07/14/24 09:23 Related Data Home Medications ?Medication ?Instructions ?Recorded ?Confirmed atorvastatin 40 mg tablet 40 mg PO DAILY 06/21/24 07/14/24 fluticasone furoate 100 1 ea inhalation DAILY 06/21/24 07/14/24 mcg-vilanterol 25 mcg/dose inhalation powder (Breo Ellipta) tamsulosin 0.4 mg capsule 0.4 mg PO BID 06/21/24 07/14/24 nebivolol 5 mg tablet 5 mg PO DAILY 07/14/24 07/14/24 ropinirole 4 mg tablet 4 mg PO DAILY 07/14/24 07/14/24 Previous Rx's ?Medication ?Instructions ?Recorded omeprazole 20 mg capsule,delayed See Rx Instructions .Route 05/21/23 release .COMPLEX #180 caps Allergies Allergy/AdvReac Type Severity Reaction Status Date / Time codeine Allergy unknown Verified 03/29/23 10:39 rosuvastatin Allergy Unknown Verified 03/29/23 10:39 PFS ED PFSH: Medical History Prostate cancer Surgical History H/O colonoscopy H/O cardiac radiofrequency ablation H/O knee surgery H/O cervical discectomy Family History Mother , at age 90 No problems noted. Father , at age 66 Stroke Social History (Updated 07/14/24 @ 15:03 by Keyon Song MD) Smoking and tobacco/nicotine status: former use of tobacco/nicotine Alcohol intake: current Alcohol intake frequency: few times a month Substance/Drug Use: current Substance/Drug use frequency: daily Marital status: Current occupational status: disabled Physical Exam Neuro: VIDA COMA SCALE: document GCS findings [place] coma scale total score: 15 Course Vital Signs: Vital signs: Vital Signs Temperature 97.6 F 07/14/24 11:30 Pulse Rate 135 H 07/14/24 14:00 Respiratory Rate 22 H 07/14/24 12:15 Blood Pressure 121/91 07/14/24 12:30 Pulse Oximetry 92 07/14/24 12:15 Oxygen Delivery Me thod Room Air 07/14/24 12:28 MDM - Arrhythmia/Palpitations Medical Decision Making Patient is a 73-year-old male with a history of atrial fibrillation/history of cardiac ablation. He [facility] today in [facility] with RVR with rates of 180s to over 200. He does not take any medications currently for his atrial fibrillation. Patient was initially given an IV Cardizem bolus and started on a drip. He later returned with rates in the 140s 150s. Amiodarone bolus and drip was ordered however shortly after this he returned down to acceptable rates so we will hold off on switching at this time. CXR showing bibasilar opacities could be secondary to infectious/inflammatory process or pulmonary edema. BNP is elevated at over 7000. Echocardiogram is ordered. Dr. Song will admit patient to ICU. Dr. Freeman aware of patient and will place admit orders. Chart reviewed and patient discussed with midlevel. Agree with assessment and plan. Lab Data 07/14/24 09:42 07/14/24 09:42 Radiology Impressions Chest X-Ray 07/14/24 09:28 IMPRESSION: 1. Bibasilar opacities and interstitial prominence which may be secondary to infectious/inflammatory process and/or pulmonary edema with atelectasis. 2. Mild cardiomegaly. 3. Remote and age-indeterminate right-sided rib fractures are again demonstrated as above. Laboratory Results WBC 7.28 10^3/uL (3.29-11.43) 07/14/24 09:42 RBC 5.41 10^6/uL (3.85-5.65) 07/14/24 09:42 Hgb 16.30 g/dL (11.27-16.99) 07/14/24 09:42 Hct 50.8 % (37-53) 07/14/24 09:42 MCV 93.9 fl (82-101) 07/14/24 09:42 MCH 30.1 pg (27-33) 07/14/24 09:42 MCHC 32.1 g/dL (30-55) 07/14/24 09:42 RDW 13.2 % (12.1-15.1) 07/14/24 09:42 Plt Count 273 10^3/cmm (157-399) 07/14/24 09:42 MPV 10.1 fL (7.4-10.4) 07/14/24 09:42 Neut % (Auto) 77.2 % 07/14/24 09:42 Lymph % (Auto) 14.8 % 07/14/24 09:42 [place] % (Auto) 7.4 % 07/14/24 09:42 Eos % (Auto) 0.0 % 07/14/24 09:42 Baso % (Auto) 0.3 % 07/14/24 09:42 Neut # (Auto) 5.62 10^3/uL (1.8-7.7) 07/14/24 09:42 Lymph # (Auto) 1.1 10^3/uL (0.8-4.8) 07/14/24 09:42 [place] # (Auto) 0.5 10^3/uL (0.2-0.9) 07/14/24 09:42 Eos # (Auto) 0.0 10^3/uL (0.0-0.8) 07/14/24 09:42 Baso # (Auto) 0.0 10^3/uL (0.0-0.1) 07/14/24 09:42 Nucleated RBC % (auto) 0 % 07/14/24 09:42 Nucleated RBCs # 0.0 /100WBC 07/14/24 09:42 Sodium 135 mmol/L (136-145) L 07/14/24 09:42 Potassium 4.6 mmol/L (3.5-5.1) 07/14/24 09:42 Chloride 98 mmol/L (98-107) 07/14/24 09:42 Carbon Dioxide 20 mmol/L (22-29) L 07/14/24 09:42 Anion Gap 21.6 (5-19) H 07/14/24 09:42 BUN 14 mg/dL (8-23) 07/14/24 09:42 Creatinine 0.8 mg/dL (0.7-1.2) 07/14/24 09:42 GFR Calculation Not Reportable 07/14/24 09:42 Glucose 197 mg/dL (65-115) H 07/14/24 09:42 Calculated Osmolality 286 mOsm/kg (285-295) 07/14/24 09:42 Calcium 9.2 mg/dL (8.5-10.5) 07/14/24 09:42 Magnesium 2.1 mg/dL (1.7-2.3) 07/14/24 09:42 Total Bilirubin 0.7 mg/dL (0.15-1.2) 07/14/24 09:42 AST 28 U/L (0-40) 07/14/24 09:42 ALT 29 U/L (0-41) 07/14/24 09:42 Alkaline Phosphatase 113 U/L (40-130) 07/14/24 09:42 Troponin T Baseline 62 ng/L (0-15) H 07/14/24 09:42 NT-Pro-B Natriuret Pep 7137 pg/mL (0-125) H 07/14/24 09:42 Total Protein 6.7 g/dL (6.6-8.7) 07/14/24 09:42 Albumin 4.4 g/dL (3.5-5.2) 07/14/24 09:42 Globulin 2.3 g/dL (1.3-4.6) 07/14/24 09:42 TSH 2.57 uIU/mL (0.27-4.20) 07/14/24 09:42 Discharge Plan Discharge Patient Disposition: Admitted As Inpatient Admit Provider: Keyon Song Clinical Impression: Atrial fibrillation with RVR Condition: Stable Coding Level of Care Code ED Dowel Pointer for Sky Diaz
--- NOTE | 2024-07-14 10:07 | PC.PHAR ---
patient not been taking meds for over a month, it looks like on his external med list that he should be on a lot more medications than what he currently is.
[2024-07-14 10:13] LABS: Troponin(5th) Baseline 62 ng/L (0-15)
--- NOTE | 2024-07-14 10:13 | USCV_ITS ---
Lauren Thornton Age: 73 Gender: M : 1950 Exam Date: 07/14/2024 13:45 Ordering Phys: Zoe Eaton Technologist: Exam Location[place] [facility] [place]: sob BP: 130 / 70 HR: 114 Rhythm: Sinus Technical Quality: Adequate MEASUREMENTS (Male / Female) Normal Values 2D ECHO LV Diastolic Diameter PLAX 5.4 cm 4.2 - 5.9 / 3.9 - 5.3 cm IVS Diastolic Thickness 1.0 cm 0.6 - 1.0 / 0.6 - 0.9 cm IVS Systolic Thickness 1.1 cm LVPW Diastolic Thickness 1.1 cm 0.6 - 1.0 / 0.6 - 0.9 cm LVPW Systolic Thickness 1.6 cm LVOT Diameter 2.1 cm LV Ejection Fraction 2D Teich 14.4 % LV Ejection Fraction MOD 4C 13.9 % LV Ejection Fraction MOD 2C 7.0 % LV Ejection Fraction 2C AL 7.2 % LA Diameter 4.7 cm RA Systolic Volume 4C AL 122.7 ml RA Systolic Volume 4C MOD 122.2 ml IVC Diameter 2.8 cm M-MODE LA Ao Ratio MM 1.7 AV Cusp Separation MM 1.8 cm DOPPLER AV Peak Velocity 81.0 cm/s LVOT Peak Velocity 39.0 cm/s AV Area Cont Eq vti 1.6 cm squared AV Area Cont Eq pk 1.6 cm squared MV Peak Velocity 254.0 cm/s MV Area PHT 4.6 cm squared Mitral E to A Ratio 3.3 TV Peak Velocity 208.5 cm/s TR Peak Velocity 225.0 cm/s TR Peak Gradient 20.3 mmHg TV Peak E Velocity 90.0 cm/s FINDINGS Left Ventricle Moderately increased left ventricular cavity size. Severely decreased left ventricular systolic function. Left ventricular ejection fraction is estimated at 15 %. Grade III/IV diastolic dysfunction (restrictive filling pattern), severely elevated filling pressures. Global left ventricular hypokinesis. Right Ventricle The right ventricle is normal in size and function. Right Atrium Moderately increased right atrial size. Left Atrium Moderately increased left atrial size. Mitral Valve Moderately thickened mitral valve. No mitral valve stenosis. Moderate mitral valve regurgitation. Aortic Valve Moderate aortic valve calcification. Mild aortic valve stenosis, mean gradient 1.2 mmHg, NELSON 1.6 cm squared. Cannot rule out pseudo aortic stenosis secondary to low cardiac output,trace aortic valve regurgitation. Tricuspid Valve Mild tricuspid valve regurgitation. Pulmonic Valve Structurally normal pulmonic valve without significant stenosis. There is no pulmonic regurgitation. Pericardium Normal pericardium without effusion. Aorta Normal ascending aorta dimension. IVC The inferior vena cava appears normal. CONCLUSIONS Moderately increased left ventricular cavity size. Severely decreased left ventricular systolic function. Left ventricular ejection fraction is estimated at 15 %. Grade III/IV diastolic dysfunction (restrictive filling pattern), severely elevated filling pressures. Global left ventricular hypokinesis. Moderately increased right atrial size. Moderately increased left atrial size. Moderate aortic valve calcification. Mild aortic valve stenosis, mean gradient 1.2 mmHg, NELSON 1.6 cm squared. Cannot rule out pseudo aortic stenosis secondary to low cardiac output,trace aortic valve regurgitation. There is no pericardial effusion. Right atrial pressure is around 5 mm of mercury. Axel Barr MD (Electronically Signed) Final Date: 15 July 2024 12:18 S
[2024-07-14 10:20] LABS: Alanine Aminotransferase 29 U/L (0-41); Albumin Level 4.4 g/dL (3.5-5.2); Alkaline Phosphatase 113 U/L (40-130); Anion Gap 21.6 (5-19); Aspartate Amino Transferase 28 U/L (0-40); Blood Urea Nitrogen 14 mg/dL (8-23); Calcium 9.2 mg/dL (8.5-10.5); Carbon Dioxide 20 mmol/L (22-29); Chloride 98 mmol/L (98-107); Creatinine Clr Calc Pharmacy 94.2847; Globulin 2.3 g/dL (1.3-4.6); Glucose 197 mg/dL (65-115); NT Pro B Type Natriuretic Pept 7137 pg/mL (0-125); Osmolality Calculated 286 mOsm/kg (285-295); Potassium 4.6 mmol/L (3.5-5.1); Sodium 135 mmol/L (136-145); Total Bilirubin 0.7 mg/dL (0.15-1.2); Total Protein 6.7 g/dL (6.6-8.7)
[2024-07-14] MEDS: amiodarone 150 MG/100 ML PREMIX 400 MG IV (11:39)
[2024-07-14] MEDS: FUROsemide 10 mg/mL SDV 4mL 40 MG IVP (11:40)
--- NOTE | 2024-07-14 12:16 | ECG_ITS ---
[facility] 2024[facility]14 Pat Name: Lauren Thornton Department: Room: ICU02 Gender: Male Junior Designer: : 1950 Requested By: Zoe Eaton Order Number: [id number] Reading MD: GARRETT WILSON Measurements Intervals [place] Rate: 119 P: 0 OK: 0 QRS: 117 QRSD: 99 T: 92 QT: 286 QTc: 402 Interpretive Statements ATRIAL FIBRILLATION WITH RAPID VENTRICULAR RESPONSE POSSIBLE RIGHT VENTRICULAR HYPERTROPHY [SOME/ALL OF: PROMINENT R IN V1, LATE TRANSITION, RAD, AARON, SSS] LATERAL MYOCARDIAL INFARCTION , OF INDETERMINATE AGE [40+ ms Q WAVE AND/OR ST/T ABNORMALITY IN I/aVL/V5/V6] Compared to ECG 07/14/2024 09:27:18 No significant changes Electronically Signed On 07-14-2024 21:00:42 CDT by GARRETT WILSON [email or web address]
[2024-07-14 12:23] LABS: Troponin 5 2HR 57.94 ng/L (0-15)
[2024-07-14 12:29] LABS: Troponin 5 2HR Delta -4.06 ABS# (0-10)
[2024-07-14 12:37] LABS: Bilirubin Urine Negative (Negative); Blood Urine Negative (Negative); Glucose Urine UA Negative (Normal); Ketones Urine Negative (Negative); Leukocyte Esterase Urine Negative (Negative); Nitrate Urine Negative (Negative); Protein Urine Trace (Negative); Specific Gravity, Urine 1.012 (1.005-1.030); Urine Appearance Clear (CLEAR); Urine Color Yellow (Yellow); Urobilinogen Urine 0.2 mg/dL (Negative); pH Urine 5.5 (5-7)
[2024-07-14 12:42] LABS: Add Urine Microscopic? YES; Bacteria Urine None Seen /hpf; RBC Urine 0-2 /hpf (0-2); Squamous Epithelial Cell Urine 0-5 /hpf (0-5); WBC Urine 0-5 /hpf (0-5)
[2024-07-14 13:33] LABS: Add Urine Culture? No
--- NOTE | 2024-07-14 13:52 | PM.HP ---
Providers/Chief Complaint Admitting Physician: Keyon Song Primary Care Provider: Antonio Villalba MD Chief Complaint: sob, afib History of Present Illness The patient with a history of atrial fibrillation presents with recurrent palpitations and episodes of a very rapid heart rate ? initially reported in the 180s to 200s ? accompanied by shortness of breath and a sensation of feeling hot and sweaty despite no measured fever. The symptoms were severe this morning, prompting an ER visit where the patient received IV Cardizem (diltiazem) administered as a push followed by a drip and subsequent addition of amiodarone. The patient recounts a previous ablation performed at [facility] in [place] for atrial fibrillation and notes having been off their blood thinner for approximately three months after discontinuing it due to gastrointestinal adverse effects (stomach pain, heartburn) and a history of hemorrhagic ulcers in his youth. He had a recent EGD several months ago. In addition, the patient reports longstanding debilitating pain from degenerative disc disease, including a history of two unsuccessful neck surgeries and a five-level back surgery, which has impaired sleep and daily comfort. There is mention of recent feelings of sweating, fatigue, and a general sense of weakness, with bedside US showing a severely reduced ejection fraction. Review of Systems Const: Reports: fatigue and diaphoresis ENMT: Denies: throat pain Card: Reports: edema (trace), dyspnea on exertion and orthopnea; Denies: chest pain Resp: Denies: dyspnea, productive cough, change in phlegm color or hemoptysis GI: Reports: abdominal pain; Denies: nausea, vomiting, diarrhea, constipation, hematochezia or melena : Denies: flank pain, difficulty urinating, urinary frequency or hematuria Musc: Denies: back pain, joint swelling or joint redness Skin/Breast: Denies: rash or new lesions Neuro: Denies: headache(s) or confusion Medications/Allergies Home Medications ?Medication ?Instructions ?Recorded ?Confirmed ?Last Taken ?Type omeprazole 20 mg capsule,delayed See Rx Instructions .Route 05/21/23 07/14/24 Unknown Rx release .COMPLEX #180 caps atorvastatin 40 mg tablet 40 mg PO DAILY 06/21/24 07/14/24 Unknown History fluticasone furoate 100 1 ea inhalation DAILY 06/21/24 07/14/24 Unknown History mcg-vilanterol 25 mcg/dose inhalation powder (Breo Ellipta) tamsulosin 0.4 mg capsule 0.4 mg PO BID 06/21/24 07/14/24 Unknown History nebivolol 5 mg tablet 5 mg PO DAILY 07/14/24 07/14/24 Unknown History ropinirole 4 mg tablet 4 mg PO DAILY 07/14/24 07/14/24 Unknown History Allergies Allergy/AdvReac Type Severity Reaction Status Date / Time codeine Allergy unknown Verified 03/29/23 10:39 rosuvastatin Allergy Unknown Verified 03/29/23 10:39 PFSH Acute PFSH: Medical History Prostate cancer Surgical History H/O colonoscopy H/O cardiac radiofrequency ablation H/O knee surgery H/O cervical discectomy Family History Mother , at age 90 No problems noted. Father , at age 66 Stroke Social History (Updated 07/14/24 @ 15:03 by Keyon Song MD) Smoking and tobacco/nicotine status: former use of tobacco/nicotine Alcohol intake: current Alcohol intake frequency: few times a month Substance/Drug Use: current Substance/Drug use frequency: daily Marital status: Current occupational status: disabled Vitals/I&O/Wt Last Vital Signs Temp 97.6 F 07/14/24 11:30 Pulse 130 H 07/14/24 12:15 Resp 22 H 07/14/24 12:15 BP 121/91 07/14/24 12:30 Pulse Ox 92 07/14/24 12:15 O2 Del Method Room Air 07/14/24 12:28 07/13/24 07/14/24 07/14/24 22:59 06:59 14:59 Intake Total 124.750 / 124.750 Output Total 150 / 150 Balance -25.250 / -25.250 Weight last 48 hrs Weight 93.621 kg Weight 90.718 kg Physical Exam Const: COMMON NORMALS: patient oriented x3 and alert GENERAL APPEARANCE: cooperative ORIENTATION/CONSCIOUSNESS: Yes awake HENMT: COMMON NORMALS: oropharynx normal Resp: COMMON NORMALS: normal respiratory effort and clear to auscultation bilaterally AUSCULTATION: clear to auscultation bilaterally Cardio: COMMON NORMALS: S1 normal heart sound present, S2 normal heart sound present and No murmurs present (Cardio) RHYTHM: regular rhythm HEART SOUNDS: S1 normal heart sound present and S2 normal heart sound present GI: COMMON NORMALS: Normal to inspection, nondistended, normoactive bowel sounds present, Soft to palpation and non-tender PALPATION: Yes Soft to palpation Extremity: COMMON NORMALS: no joint enlargement GENERAL: Yes edema (Trace) Neuro: COMMON NORMALS: patient oriented x3 and moves all extremities SENSORIUM/ORIENTATION: Yes alert Skin: COMMON NORMALS: no rashes or lesions noted GENERAL SKIN EXAM: no rashes or lesions noted Data 07/14/24 09:42 07/14/24 09:42 A&P Assessment and plan (1) Atrial fibrillation with RVR: Patient with a known history of atrial fibrillation presenting with palpitations and a rapid ventricular response. Reports he had not taken his medications over the last 3 months. He was worried about restarting the medications on his own. Has had an upper endoscopy within the last several months. The patient?s heart rate has been significantly elevated (initially 180s?200s) and has initially been managed with IV Cardizem and amiodarone. Has history of discontinuing prior rate control meds and blood thinner therapy due to GI side effects. - Continue current rate control with IV amiodarone as initiated in the ER. Cardizem has been held for now with acute CHF, pending further assessment by cardiology. Monitor for risk of hypotension with risk of low output failure. - Consult cardiology for further management including evaluation for reinstatement of anticoagulation and assessment of potential ischemia. - Monitor heart rate and rhythm closely during hospitalization. Reviewed vitals, CBC, CMP, troponin series, UA, chest x-ray, EKG, ER provider note, discussed with ER provider, discussed with toy trains and accessories salesperson. Appreciate consultation. Monitor on telemetry. Discussed with him increased risk of sudden , life-threatening arrhythmia, complication secondary to severely reduced ejection fraction, he verbalized understanding. Would want attempted resuscitation. Would be okay discussing LifeVest with cardiology. (2) CHF (congestive heart failure): Acute systolic congestive heart failure. Severe dyspnea on exertion, exertional intolerance, orthopnea, trace peripheral edema. Limited bedside US with findings indicate a severely reduced ejection fraction of approximately 5?10%, suggesting significant impairment of cardiac contractility, possibly related to prolonged tachyarrhythmia. - Perform a targeted limited echo to confirm the ejection fraction. - Refer to cardiology for evaluation of potential tachycardia-induced cardiomyopathy and discussion of options (e.g., life vest or defibrillator) if indicated. Blood pressure was soft and getting down to as low as 97/54 back in the beginning of June during his ER visit. Chest x-ray with bibasilar opacities and interstitial prominence, possible infectious/inflammatory process, but with mild cardiomegaly, finding of newly decreased ejection fraction, Afebrile, without leukocytosis, suspect related to congestive heart failure rather than acute infectious process, unless he is recovering from 1 which possibly contributed to his cardiomyopathy. Hold off on diuresis for now, optimize heart rate, reassess vitals, consider diuresis depending on hemodynamics, volume status and cardiology recommendation. Monitor on telemetry with elevated risk of arrhythmia. Initial admission to intensive care unit, monitor hemodynamics with risk of low output failure. Plan Degenerative disc disease : Longstanding degenerative disc disease since 1999, with a history of two failed neck surgeries and a subsequent five-level back surgery, contributing to chronic pain, sleep disturbances, and functional limitations. - Maintain current pain management regimen. - Consider referral to a painter and decorator for further optimization of therapy. ROS: He reports severe RLS, and absolutely must have his ropinirole otherwise symptoms get out of control and are extremely difficult to manage. Resumed ropinirole. PDMP PDMP Reviewed: Not Reviewed Attestations Medical Necessity Statement*: Admission weight 2 midnights anticipated for assessment management of A-fib with RVR, acute systolic CHF with severe cardiomyopathy. Diagnoses Atrial fibrillation with RVR I48.91 CHF (congestive heart failure) I50.9
[2024-07-14 14:17] LABS: Magnesium 2.1 mg/dL (1.7-2.3)
[2024-07-14] MEDS: enoxaparin 40 mg/0.4 mL Syringe SUBCUT (14:24)
[2024-07-14] MEDS: pantoprazole 40 mg SDV IVP (14:24)
[2024-07-14 14:42] LABS: Thyroid Stimulating Hormone 2.57 uIU/mL (0.27-4.20)
[2024-07-14] MEDS: ropinirole 2 mg Tablet 4 MG PO (14:57)
--- NOTE | 2024-07-14 15:28 | ECG_ITS ---
[email or web address] Test Date: 2024-07-14 Pat Name: Lauren Thornton Department: Room: ICU02 Gender: Male Cloth Cutter: : 1950 Requested By: Zoe Eaton Order Number: [id number] Reading MD: GARRETT WILSON Measurements Intervals [place] Rate: 137 P: 0 PA: 0 QRS: 119 QRSD: 100 T: 92 QT: 331 QTc: 500 Interpretive Statements ATRIAL FIBRILLATION WITH RAPID VENTRICULAR RESPONSE POSSIBLE RIGHT VENTRICULAR HYPERTROPHY [SOME/ALL OF: PROMINENT R IN V1, LATE TRANSITION, RAD, AARON, SSS] LATERAL MYOCARDIAL INFARCTION , OF INDETERMINATE AGE [40+ ms Q WAVE AND/OR ST/T ABNORMALITY IN I/aVL/V5/V6] Compared to ECG 07/14/2024 12:16:17 No significant changes Electronically Signed On 07-14-2024 21:00:27 CDT by GARRETT WILSON [email or web address]
[2024-07-14 16:12] LABS: Troponin 5 6HR 55.89 ng/L (0-15)
[2024-07-14 16:14] LABS: Troponin 5 6HR Delta -6.11 ng/L (0-12)
[2024-07-14] MEDS: FUROsemide 10 mg/mL SDV 10mL 60 MG IVP (16:46)
[2024-07-14] MEDS: potassium chloride ER 20 mEq Tablet PO (18:00)
[2024-07-14] MEDS: tamsulosin 0.4 mg Capsule PO (18:01)
[2024-07-14] MEDS: metOLazone 5 MG Tablet 2.5 MG PO (18:01)
--- NOTE | 2024-07-14 18:18 | PC.NURSE ---
Patient's wallet given to , Amalia to take home. Bottle of exedrin and requip given to to take home.
--- NOTE | 2024-07-14 19:21 | PC.NURSE ---
1448 -- Patient noted to have increased shortness of breath, lungs remain wet sounding with decreased air movement and diaphoresis. Notified Dr. Song of patients change in condition and that patient had only voided 500mL since 40mg of lasix given. No new orders given. 162 -- Notified Dr. Song of patients increased work of breathing, increased diaphoresis and pale skin. States that he will come an see patient. 162 -- LUCHO Enriquez and Dr. Barr to bedside. Orders given for bipap, lasix, and xaroxoline. 163 -- Notified of patient changes in condition. Placed on bipap per RT. 163 -- Dr. Song to bedside, order given to insert hankins. Dr. Song updated on patient condition. 1700 - Resting comfortably on bipap. Hankins inserted using aseptic technique. 1730 -- Patients to bedside, updated on patient condition. 1914 -- Report given to BRIAN Garcia. Dr. Barr to bedside to check on patient status.
--- NOTE | 2024-07-14 19:57 | P.CONIM_ITS ---
<Statement entered by Axel Barr MD - 07/14/24 20:21> Patient was evaluated and cared for in conjunction with an advanced practice practitioner. I personally examined the patient and reviewed the chart and all pertinent data including imaging, telemetry, and laboratory results. I discussed the patient in detail with the advanced practice practitioner. Please see their note for complete H&P testing result and agreed upon plan of care for the patient. 73-year-old male past medical history significant for atrial fibrillation status post ablation hypertension congestive heart failure coronary disease presented with worsening of shortness of breath mainly orthopnea noted to be in A-fib with RVR with developing worsening of heart failure and pulmonary edema. Denies chest pain. They appear to be cold and clammy. Blood pressure is stable. Heart rate high up in the 140s GENERAL: Patient is lethargic sitting in the bed cannot catch his breath sweating all over HEART: Irregularly S1 and S2. LUNGS: Inspiratory crackles bilaterally. CENTRAL NERVOUS SYSTEM: Grossly nonfocal. EXTREMITIES: Lower extremities with 1+ edema bilaterally. Assessment and plan Acute decompensated systolic heart failure Pulm edema A-fib with RVR History of coronary artery disease Evaded cardiac markers most likely type II secondary to pulmonary edema however cannot rule out underlying coronary artery disease and obstructive lesion Advised immediate BiPAP as patient appeared to be in pulmonary edema Increase Lasix to 60 IV twice daily with metolazone 2.5 twice daily with goal of 1 to 1.5 L negative overnight 74 hours. Continue IV amiodarone to control heart rate Providers/Reason For Consult 2 Consulting Physician/Specialty*: Axel Barr MD Reason for Consult*: CHF exacerbation Requesting Physician: Dr. Song Attending Physician: Keyon Song Primary Care Provider: Antonio Villalba MD History of Present Illness History of Present Illness Lauren Thornton is a 73 year old male with a history of A-fib status post ablation, hypertension, hyperlipidemia came into the ER today for high heart rate and shortness of breath. Apparently he was not taking any of his heart medications due to side effects. At the time of my assessment patient appeared dyspneic and had difficulty speaking due to shortness of breath at rest. He had coarse crackles throughout all lung sounds. I notified Dr. Khan who came to assess the patient with me. In the ER he got 40 mg of Lasix. At this time it appeared patient was in severe pulmonary edema. BiPAP was placed and 60 of Lasix was given IV. Patient responded well immediatel with significant improvement of shortness of breath. For his A-fib in the ER he was given a Cardizem bolus and started on a drip. proBNP was elevated over 7000. Amiodarone bolus was given and patient is currently on an amnio drip per protocol. Current heart rates are in the 120s. Blood pressure stable at 121/91. X-ray showed interstitial prominence and bibasilar opacities possibly secondary to pulmonary edema with mild cardiomegaly. Troponin was elevated at 62-57.9-55.89 delta negative. Review of Systems 2 Narrative: Consitutional: reports shortness of breath at rest Card: Reports chest pressure on deep breaths, reports orthopnea Resp: Reports shortness of breath at rest GI: denies nausea or vomiting Medications/Allergies Home Medications ?Medication ?Instructions ?Recorded ?Confirmed ?Last Taken ?Type omeprazole 20 mg capsule,delayed See Rx Instructions . Route 05/21/23 07/14/24 Unknown Rx release .COMPLEX #180 caps atorvastatin 40 mg tablet 40 mg PO DAILY 06/21/2406/18 Unknown History fluticasone furoate 100 1 ea inhalation DAILY 07/14/24 Unknown History mcg-vilanterol 25 mcg/dose inhalation powder (Breo Ellipta) tamsulosin 0.4 mg capsule 0.4 mg PO BID 06/21/2407/14 Unknown History nebivolol 5 mg tablet 5 mg PO DAILY 07/14/2407/14 Unknown History ropinirole 4 mg tablet 4 mg PO DAILY 07/14/2407/14 Unknown History Allergies Allergy/AdvReac Type Severity Reaction Status Date / Time codeine Allergy unknown Verified 03/29/23 10:39 rosuvastatin Allergy Unknown Verified 03/29/23 10:39 Current Medications Generic Name Dose Route Start Last Admin Trade Name Freq PRN Reason Stop Dose Admin Enoxaparin Sodium 40 mg 07/14/24 14:00 07/14/24 14:24 Enoxaparin 40 Mg/0.4 Ml Syringe SUBCUT 40 mg Q24H TALAT Administration Furosemide 60 mg 07/14/24 16:36 07/14/24 16:46 Furosemide 10 Mg/Ml Sdv 10ml IVP 60 mg Q12H TALAT Administration Amiodarone HCl/Dextrose 360 mg in 200 mls @ 0 mls/hr 07/14/24 10:33 07/14/24 18:40 Nexterone IV 0.5 mg/min .Q0M TALAT 16.67 mls/hr Administration Protocol Per Protocol Metolazone 2.5 mg 07/14/24 18:00 07/14/24 18:01 Metolazone 5 Mg Tablet PO 2.5 mg BID TALAT Administration Pantoprazole Sodium 40 mg 07/14/24 14:00 07/14/24 14:24 Pantoprazole 40 Mg Sdv IVP 40 mg Q24H TALAT Administration Potassium Chloride 20 meq 07/14/24 18:00 07/14/24 18:00 Potassium Chloride Er 20 Meq Tablet PO 20 meq BID TALAT Administration Ropinirole HCl 4 mg 07/14/24 15:00 07/14/24 14:57 Ropinirole 2 Mg Tablet PO 4 mg DAILY TALAT Administration Tamsulosin HCl 0.4 mg 07/14/24 18:00 07/14/24 18:01 Tamsulosin 0.4 Mg Capsule PO 0.4 mg BID TALAT Administration PFSH Acute 2 PFSH: Medical History Prostate cancer Surgical History H/O colonoscopy H/O cardiac radiofrequency ablation H/O knee surgery H/O cervical discectomy Family History Mother , at age 90 No problems noted. Father , at age 66 Stroke Social History (Updated 07/14/24 @ 15:03 by Keyon Song MD) Smoking and tobacco/nicotine status: former use of tobacco/nicotine Alcohol intake: current Alcohol intake frequency: few times a month Substance/Drug Use: current Substance/Drug use frequency: daily Marital status: Current occupational status: disabled Vitals/I&O/Wt Last Vital Signs Temp 97.6 F 07/14/24 11:30 Pulse 120 H 07/14/24 19:55 Resp 22 H 07/14/24 12:15 BP 121/91 07/14/24 12:30 Pulse Ox 97 07/14/24 19:55 O2 Del Method Room Air 07/14/24 12:28 FiO2 30 07/14/24 19:55 07/14/24 07/14/24 07/14/24 06:59 14:59 22:59 Intake Total 124.750 / 124.750 450 / 574.750 Output Total 525 / 525 Balance -400.250 / -400.250 450 / 49.750 Weight last 48 hrs Weight 206 lb 6.4 oz Weight 200 lb Physical Exam 2 Narrative: General: on assessment appeared to be in respiratory distress HENMT: normoceophalic Muskuloskeletal: Full ROM Respiratory: course crackles throughout all lung dunne, use of accessory muscles seen Cardio: No JVD, irregularly irregular rate and rhythm, S1 S2 normal, no murmurs, peripheral pulses 2+ radial palpated bilaterally Extremities: Full ROM, normal, normal capillary refill, no cyanosis or edema Neuro: Alert and oriented x4, no focal motor deficits Psych: Affect normal, denies suicidal ideation, mental status grossly normal Skin: No rashes or lesions noted, no wounds Urinary Catheter Management: Moralez: Cath Placed During This Visit: yes Urinary Catheter Date of Insertion: 07/14/24 Urinary Catheter Time of Insertion: 17:00 Data 07/14/24 09:42 07/14/24 09:42 A&P Assessment and plan (1) CAD (coronary artery disease): Qualifiers: Coronary Disease-Associated Artery/Lesion type: [place] artery [place] vs. transplanted heart: [place] heart Associated angina: without angina Q ualified Code(s): I25.10 - Atherosclerotic heart disease of [place] coronary artery without angina pectoris (2) CHF (congestive heart failure): (3) Atrial fibrillation with RVR: Plan It appears patient is in decompensated heart failure with A-fib RVR. Initial plan will be to diurese with Lasix 60 mg IV every 12 with metolazone 2.5 mg twice daily. Will add potassium 20 twice daily as well. Patient will continue amiodarone drip. Hopefully once euvolemic rates will continue to normalize. Patient's echo is waiting to be read. Further recommendations after this. After bipap was placed and lasix was given, patient responded well. Will continue to monitor I&O carefully and titrate to response. Will try to avoid beta germán and cardizem as patient is in CHF exacerbation. Thank you, Dr. Song, for allowing us to care for this 73 year old gentleman. Thank PDMP PDMP Reviewed: Not Reviewed Consult Attestations 2 Medical Necessity Statement: Deferred to primary. Coding Level of Care Code Acute Code for Chg Fwd Diagnoses Coronary artery disease involving [place] coronary artery of [place] heart without angina pectoris I25.10 Coronary Disease-Associated Artery/Lesion type: [place] artery [place] vs. transplanted heart: [place] heart Associated angina: without angina CHF (congestive heart failure) I50.9 Atrial fibrillation with RVR I48.91
[2024-07-14] MEDS: acetaminophen 325 mg Tablet 650 MG PO (21:15)
--- NOTE | 2024-07-14 21:50 | PC.NURSE ---
Pain Patient complaining of lower back pain stating he has pinched nerves all up and down his spine. Patient also complaining of a full bladder sensation and hankins catheter discomfort. Tylenol administered with no pain relief, hankins catheter draining well, bladder scan revealed no retained urine. Upon inquiry, patient states he used to take gabapentin for his nerve pain but that his [facility] doctor stopped it. Dr. Gooden contacted; orders received for 300 mg gabapentin TID and oxycodone Q6H PRN for pain.
[2024-07-14] MEDS: gabapentin 300 mg Capsule PO (22:02)
[2024-07-14] MEDS: oxyCODONE-APAP 5-325 mg Tablet 1 TAB PO (22:02)
[2024-07-15] VITALS (99 sets, daily range): BP systolic 68–146; BP diastolic 50–104; PULSE 65–163; RESP 15–42; TEMP 36.1–36.8; O2SAT 83–100
[2024-07-15 03:53] LABS: Basophils % 0.3 %; Eosinophils % 0.2 %; Hematocrit 44.2 % (37-53); Lymphocytes # 1.7 10^3/uL (0.8-4.8); Mean Corpuscular HGB Conc 33.3 g/dL (30-55); Mean Corpuscular Hemoglobin 30.5 pg (27-33); Mean Corpuscular Volume 91.7 fl (82-101); Mean Platelet Volume 10.7 fL (7.4-10.4); Monocytes # 0.8 10^3/uL (0.2-0.9); Monocytes % 12.9 %; Neutrophils # 3.66 10^3/uL (1.8-7.7); Neutrophils % 59.3 %; Nucleated Red Blood Cells % 0 %; Platelet Count 246 10^3/cmm (157-399); Red Blood Count 4.82 10^6/uL (3.85-5.65); Red Cell Distribution Width 13.2 % (12.1-15.1); White Blood Count 6.18 10^3/uL (3.29-11.43)
[2024-07-15 04:26] LABS: Alanine Aminotransferase 29 U/L (0-41); Albumin Level 3.6 g/dL (3.5-5.2); Alkaline Phosphatase 90 U/L (40-130); Anion Gap 16.9 (5-19); Aspartate Amino Transferase 31 U/L (0-40); Blood Urea Nitrogen 14 mg/dL (8-23); Calcium 8.9 mg/dL (8.5-10.5); Carbon Dioxide 29 mmol/L (22-29); Chloride 95 mmol/L (98-107); Creatinine Clr Calc Pharmacy 95.6757; Globulin 2.7 g/dL (1.3-4.6); Glucose 99 mg/dL (65-115); Osmolality Calculated 283 mOsm/kg (285-295); Potassium 4.9 mmol/L (3.5-5.1); Sodium 136 mmol/L (136-145); Total Bilirubin 0.5 mg/dL (0.15-1.2); Total Protein 6.3 g/dL (6.6-8.7)
[2024-07-15] MEDS: FUROsemide 10 mg/mL SDV 10mL 60 MG IVP (04:44)
[2024-07-15] MEDS: ropinirole 2 mg Tablet 4 MG PO (08:08)
[2024-07-15] MEDS: potassium chloride ER 20 mEq Tablet PO ×2 (08:08→17:43)
[2024-07-15] MEDS: tamsulosin 0.4 mg Capsule PO ×2 (08:08→17:43)
[2024-07-15] MEDS: gabapentin 300 mg Capsule PO ×3 (08:08→20:02)
[2024-07-15] MEDS: metOLazone 5 MG Tablet 2.5 MG PO (08:08)
--- NOTE | 2024-07-15 11:32 | PC.NURSE ---
Patient remains tachycardic, on amio drip. BP low when patient tried to get out of bed, notified Dr. Tejada.
[2024-07-15] MEDS: oxyCODONE-APAP 5-325 mg Tablet 1 TAB PO (11:40)
--- NOTE | 2024-07-15 11:42 | PM.PN ---
Subjective Subjective: This morning usually will be better, he was able to wean off BiPAP support. Breathing easier. Without chest pain or pressure. Produce good amount of urine overnight. He states he really would not want to get up to the chair, however, discussed with him in extensive discussion quite significant risks with getting up and ambulation/transfers at this time due to the significant weakness of his heart, increased risk of life-threatening arrhythmia, hypotension, other complications. Later on try to get up his heart rate was shooting up to 150s-180s, blood pressure coming soft 68/52. Discussed with him again the importance of bedrest, he acknowledges that he should not have gotten up, verbalized understanding and intends not to leave the bed until as discussed with him it is safer. Vitals/I&O/Wt Last Vital Signs Temp 98.3 F 07/15/24 08:00 Pulse 137 H 07/15/24 10:15 Resp 23 H 07/15/24 10:15 BP 124/103 07/15/24 10:15 Pulse Ox 94 07/15/24 10:15 O2 Del Method BiPAP 07/15/24 04:45 FiO2 30 07/15/24 04:45 07/14/24 07/15/24 07/15/24 22:59 06:59 14:59 Intake Total 930 / 1054.750 680 / 1734.750 240 / 240 Output Total 2500 / 3025 Balance 930 / 529.750 -1820 / -1290.250 240 / 240 Weight last 48 hrs Weight 88.269 kg Weight 93.621 kg Weight 90.718 kg Physical Exam Const: COMMON NORMALS: patient oriented x3 and alert GENERAL APPEARANCE: cooperative ORIENTATION/CONSCIOUSNESS: Yes awake HENMT: COMMON NORMALS: oropharynx normal Resp: COMMON NORMALS: normal respiratory effort and clear to auscultation bilaterally AUSCULTATION: clear to auscultation bilaterally Cardio: COMMON NORMALS: regular rhythm, S1 normal heart sound present, S2 normal heart sound present and No murmurs present (Cardio) RHYTHM: regular rhythm HEART SOUNDS: S1 normal heart sound present and S2 normal heart sound present GI: COMMON NORMALS: Normal to inspection, nondistended, normoactive bowel sounds present, Soft to palpation and non-tender PALPATION: Yes Soft to palpation Extremity: COMMON NORMALS: no joint enlargement GENERAL: Yes edema (Trace) Neuro: COMMON NORMALS: patient oriented x3 and moves all extremities SENSORIUM/ORIENTATION: Yes alert Skin: COMMON NORMALS: no rashes or lesions noted GENERAL SKIN EXAM: no rashes or lesions noted Urinary Catheter Management: Moralez: Cath Placed During This Visit: yes Reason for Continuing Indwelling Catheter: Accurate Measurement of Urinary Output in Critically Ill Patients Urinary Catheter Date of Insertion: 07/14/24 Urinary Catheter Time of Insertion: 17:00 Data 07/15/24 03:04 07/15/24 03:04 A&P Assessment and plan (1) Atrial fibrillation with RVR: Persistent A-fib with RVR, difficult to control, heart rates in 130s. Continues on amiodarone drip. Reviewed vitals, CBC, CMP, UA, cardiology note, discussed with cardiology. This morning further consideration of additional pharmaceutical measures, digoxin discussed with him concern for fluctuation of renal function, although so far and his remained within normal limits. Additional consideration of cardioversion. Later in the afternoon heart rate 150s-180s after trying to get up with blood pressure coming down to 68/52, with improvement after 112 with return to bed. Revisited with him again that he is on bedrest and importance due to potential life-threatening event given the severity of his cardiomyopathy, he verbalized understanding. Discussed with cardiology, he is going to be loaded with digoxin. Continue telemetry monitoring. Reassess chemistry, renal function. Monitor for risk of digoxin toxicity. Continue bedrest. Discussed with him increased risk of sudden , life-threatening arrhythmia, complication secondary to severely reduced ejection fraction, he verbalized understanding. Would want attempted resuscitation. Would be okay discussing LifeVest with cardiology. Discussed with him concern for fluctuation in renal function, although so far she has been Attempted to reach his for an update. (2) CHF (congestive heart failure): Reviewed intake and output, reviewed chemistry, and negative balance, blood pressure with improvement today, blood on soft side, appears orthostatic with standing up. Discussed with cardiology. Further diuretics are planned to be held. Reassess volume status. Continue oxygen support. Continue attempts to achieve better control of heart rate, monitoring blood pressures with risk of low output failure, hypotension and shock. Follow-up echocardiogram results. Reviewed troponin series. Initial admission to intensive care unit, monitor hemodynamics with risk of low output failure. Plan Degenerative disc disease: Longstanding degenerative disc disease since 1999, with a history of two failed neck surgeries and a subsequent five-level back surgery, contributing to chronic pain, sleep disturbances, and functional limitations. - Maintain current pain management regimen. - Consider referral to a paint striping machine operator for further optimization of therapy. RLS: He reports severe RLS, and absolutely must have his ropinirole otherwise symptoms get out of control and are extremely difficult to manage. Resumed ropinirole. PDMP PDMP Reviewed: Not Reviewed Attestations Medical Necessity Statement*: Continue admission for assessment and management of difficult to control atrial fibrillation with RVR in setting of severe cardiomyopathy with severely decreased ejection fraction, CHF. Diagnoses Atrial fibrillation with RVR I48.91 CHF (congestive heart failure) I50.9
[2024-07-15] MEDS: digoxin 250 mcg/ml INJ 2 mL IVP (12:19)
[2024-07-15] MEDS: pantoprazole 40 mg SDV IVP (13:08)
[2024-07-15] MEDS: enoxaparin 40 mg/0.4 mL Syringe SUBCUT (13:08)
[2024-07-15] MEDS: digoxin 250 mcg/ml INJ 2 mL 125 MCG IVP ×2 (14:14→20:02)
--- NOTE | 2024-07-15 14:28 | P.PN_ITS ---
<Statement entered by Axel Barr MD - 07/20/24 11:27> Patient was evaluated and cared for in conjunction with an advanced practice practitioner. I personally examined the patient and reviewed the chart and all pertinent data including imaging, telemetry, and laboratory results. I discussed the patient in detail with the advanced practice practitioner. Please see their note for complete H&P testing result and agreed upon plan of care for the patient. Subjective 2 Subjective: Patient was seen today. He is doing much better from a respiratory standpoint. He was -1050 L over 24 hours and then during day shift was -2 L as well. Creatinine is stable at 0.8. He appears euvolemic at this time. EF was assessed by Dr. Barr on echo and it is around 15%. His heart rates are still uncontrolled in the 140s at rest but when he gets up his blood pressure drops and he goes into the 170s to 190s. He is in no acute distress at this time. No signs or symptoms such as dizziness shortness of breath or chest pain. Vitals/I&O/Wt Last Vital Signs Temp 97.7 F 07/15/24 14:15 Pulse 141 H 07/15/24 14:15 Resp 25 H 07/15/24 14:15 BP 98/75 07/15/24 14:15 Pulse Ox 90 07/15/24 14:15 O2 Del Method BiPAP 07/15/24 04:45 FiO2 30 07/15/24 04:45 07/14/24 07/15/24 07/15/24 22:59 06:59 14:59 Intake Total 930 / 1054.750 680 / 1734.750 480 / 480 Output Total 2500 / 3025 1550 / 1550 Balance 930 / 529.750 -1820 / -1290.250 -1070 / -1070 Weight last 48 hrs Weight 194 lb 9.6 oz Weight 206 lb 6.4 oz Weight 200 lb Physical Exam 2 Narrative: General: No apparent distress, healthy appearing, well nourished Muskuloskeletal: Full ROM Respiratory: Normal respiratory effort, clear to auscultation bilaterally throughout all lung dunne, no use of accessory muscles Cardio: No JVD, irregularly irregular rate and rhythm, S1 S2 normal, no murmurs, peripheral pulses 2+ radial palpated bilaterally GI: Normal to inspection, nondistended Extremities: Full ROM, normal, normal capillary refill, no cyanosis or edema Neuro: Alert and oriented x4, no focal motor deficits Psych: Affect normal, denies suicidal ideation, mental status grossly normal Skin: No rashes or lesions noted, no wounds Urinary Catheter Management: Moralez: Cath Placed During This Visit: yes Reason for Continuing Indwelling Catheter: Accurate Measurement of Urinary Output in Critically Ill Patients Urinary Catheter Date of Insertion: 07/14/24 Urinary Catheter Time of Insertion: 17:00 Data 07/15/24 03:04 07/15/24 03:04 A&P Assessment and plan (1) CAD (coronary artery disease): Qualifiers: Coronary Disease-Associated Artery/Lesion type: [place] artery [place] vs. transplanted heart: [place] heart Associated angina: without angina Q ualified Code(s): I25.10 - Atherosclerotic heart disease of [place] coronary artery without angina pectoris (2) CHF (congestive heart failure): (3) Atrial fibrillation with RVR: Plan Patient appears to be euvolemic at this time may be on the soap drier tender side. Will stop Lasix and metolazone at this time. EF is low at 15% with global hypokinesis. Will introduce goal-directed medical therapy once blood pressure allows and patient is euvolemic. Patient is currently requiring only nasal cannula and off of BiPAP. Will load patient with 250 mcg of digoxin followed by 125 3 hours later and then 6 hours later another 125. Prior to third dose digoxin level should be checked and third dose held if it is high. This was relayed to the patient's nurse. If patient does not respond, he may need to be cardioverted. With EF being low, will require LHC at some point. PDMP PDMP Reviewed: Not Reviewed Attestations 2 Medical Necessity Statement*: Deferred to primary Coding Level of Care Code Acute Code for [facility]wd Diagnoses Coronary artery disease involving [place] coronary artery of [place] heart without angina pectoris I25.10 Coronary Disease-Associated Artery/Lesion type: [place] artery [place] vs. transplanted heart: [place] heart Associated angina: without angina CHF (congestive heart failure) I50.9 Atrial fibrillation with RVR I48.91
[2024-07-15 20:29] LABS: Digoxin 0.8 ng/mL (0.6-1.2)
[2024-07-15] MEDS: amiodarone 50 mg/mL SDV 3 mL 150 MG IVP (22:31)
[2024-07-16] VITALS (100 sets, daily range): BP systolic 93–151; BP diastolic 51–110; PULSE 94–137; RESP 10–35; TEMP 35.9–36.8; O2SAT 80–99; BMI 28.7
[2024-07-16 05:51] LABS: Basophils % 0.3 %; Eosinophils # 0.1 10^3/uL (0.0-0.8); Eosinophils % 0.8 %; Hematocrit 43.3 % (37-53); Lymphocytes # 1.1 10^3/uL (0.8-4.8); Lymphocytes % 16.6 %; Mean Corpuscular HGB Conc 33.5 g/dL (30-55); Mean Corpuscular Hemoglobin 31.1 pg (27-33); Mean Corpuscular Volume 92.9 fl (82-101); Mean Platelet Volume 10.7 fL (7.4-10.4); Monocytes # 0.7 10^3/uL (0.2-0.9); Monocytes % 11.2 %; Neutrophils # 4.66 10^3/uL (1.8-7.7); Neutrophils % 70.8 %; Nucleated Red Blood Cells % 0 %; Platelet Count 226 10^3/cmm (157-399); Red Blood Count 4.66 10^6/uL (3.85-5.65); Red Cell Distribution Width 13.1 % (12.1-15.1); White Blood Count 6.58 10^3/uL (3.29-11.43)
--- NOTE | 2024-07-16 06:25 | PC.NURSE ---
Physician notified of pts HR being greater than 150. Orders given for pt to receive amiodarone bolus and additional order given for Cardizem 15 mg if pts HR greater than 150 afterwards.
[2024-07-16 06:39] LABS: Alanine Aminotransferase 29 U/L (0-41); Albumin Level 3.7 g/dL (3.5-5.2); Alkaline Phosphatase 100 U/L (40-130); Aspartate Amino Transferase 28 U/L (0-40); Blood Urea Nitrogen 17 mg/dL (8-23); Calcium 9.1 mg/dL (8.5-10.5); Carbon Dioxide 29 mmol/L (22-29); Chloride 94 mmol/L (98-107); Creatinine Clr Calc Pharmacy 93.1112; Globulin 2.7 g/dL (1.3-4.6); Glucose 109 mg/dL (65-115); Osmolality Calculated 282 mOsm/kg (285-295); Sodium 135 mmol/L (136-145); Total Bilirubin 0.5 mg/dL (0.15-1.2); Total Protein 6.4 g/dL (6.6-8.7)
[2024-07-16 06:41] LABS: Anion Gap 16.1 (5-19); Potassium 4.1 mmol/L (3.5-5.1)
[2024-07-16] MEDS: potassium chloride ER 20 mEq Tablet PO ×2 (08:08→17:21)
[2024-07-16] MEDS: ropinirole 2 mg Tablet 4 MG PO (08:09)
[2024-07-16] MEDS: gabapentin 300 mg Capsule PO ×3 (08:09→19:50)
[2024-07-16] MEDS: tamsulosin 0.4 mg Capsule PO ×2 (08:09→17:21)
[2024-07-16] MEDS: digoxin 125 mcg Tablet PO (11:12)
[2024-07-16] MEDS: FUROsemide 10 mg/mL SDV 2mL 20 MG IVP (11:34)
[2024-07-16] MEDS: enoxaparin 100 mg/mL Syringe 90 MG SUBCUT ×2 (11:34→23:53)
[2024-07-16] MEDS: pantoprazole 40 mg SDV IVP (13:01)
--- NOTE | 2024-07-16 13:31 | PC.SOCIAL ---
IMM Update pg 2 of IMM Updated and reviewed w/ patient. Copy provided and copy dated, initialed and placed in chart.
--- NOTE | 2024-07-16 14:12 | P.PN_ITS ---
<Statement entered by Charles Malik M.D - 07/17/24 07:54> Patient was evaluated and cared for in conjunction with an advanced practice practitioner.? I personally examined the patient and reviewed the chart and all pertinent data including imaging, telemetry, and laboratory results.? I discussed the patient in detail with the advanced practice practitioner.? Please see? their note for complete progress note, testing results and agreed upon plan of care for the patient. GENERAL: Patient is alert, awake and oriented x3. HEART: Tachycardia, irregularly irregular LUNGS: Mild crackles bilaterally CENTRAL NERVOUS SYSTEM: Grossly nonfocal. EXTREMITIES: Lower extremities with 1+ edema bilaterally. Plan for JACIEL cardioversion tomorrow. Will switch to therapeutic Lovenox as currently getting DVT prophylaxis dose. Continue amiodarone and digoxin. Will give 1 dose of Lasix today. Subjective 2 Subjective: Patient's heart rate still uncontrolled but improved after digoxin. Currently 112. Patient appears well compensated.Vitals are stable. No shortness of breath noted. Vitals/I&O/Wt Last Vital Signs Temp 96.7 F L 07/16/24 08:00 Pulse 112 H 07/16/24 13:00 Resp 24 H 07/16/24 13:00 BP 115/88 07/16/24 13:00 Pulse Ox 91 07/16/24 13:00 O2 Del Method BiPAP 07/15/24 04:45 FiO2 30 07/16/24 07:35 07/15/24 07/16/24 07/16/24 22:59 06:59 14:59 Intake Total 320 / 800 680 / 680 Output Total 1900 / 1900 Balance 320 / -750 -1220 / -1220 Weight last 48 hrs Weight 194 lb 9.597 oz Weight 194 lb 9.6 oz Physical Exam 2 Narrative: General: No apparent distress, healthy appearing, well nourished [place]keletal: Full ROM Respiratory: Normal respiratory effort, clear to auscultation bilaterally throughout all lung dunne, no use of accessory muscles Cardio: No JVD, irregularly irregular rate and rhythm, S1 S2 normal, no murmurs, peripheral pulses 2+ radial palpated bilaterally GI: Normal to inspection, nondistended Extremities: Full ROM, normal, normal capillary refill, no cyanosis or edema Neuro: Alert and oriented x4, no focal motor deficits Psych: Affect normal, denies suicidal ideation, mental status grossly normal Skin: No rashes or lesions noted, no wounds Urinary Catheter Management: Moralez: Cath Placed During This Visit: yes Reason for Continuing Indwelling Catheter: Accurate Measurement of Urinary Output in Critically Ill Patients Urinary Catheter Date of Insertion: 07/14/24 Urinary Catheter Time of Insertion: 17:00 Data 07/16/24 04:11 07/16/24 04:11 A&P Assessment and plan (1) CAD (coronary artery disease): (2) CHF (congestive heart failure): (3) Atrial fibrillation with RVR: Plan Patient's heart rate still controlled. He has not been consistently taking an anticoagulant. Will change Lovenox to 1 mg/kg every 12. Patient will get 3 doses prior to planned JACIEL cardioversion for tomorrow around 11.Otherwise we will continue Amio drip and digoxin. PDMP PDMP Reviewed: Not Reviewed Attestations 2 Medical Necessity Statement*: Deferred to primary. Coding Level of Care Code Acute Code for [facility] Diagnoses Coronary artery disease involving [place] coronary artery of [place] heart without angina pectoris I25.10 Coronary Disease-Associated Artery/Lesion type: [place] artery [place] vs. transplanted heart: [place] heart Associated angina: without angina CHF (congestive heart failure) I50.9 Atrial fibrillation with RVR I48.91
--- NOTE | 2024-07-16 16:23 | P.PN_ITS ---
Subjective 2 Subjective: He is overall feeling better this morning. Overnight did require a bolus of amiodarone and Cardizem. This morning heart rates with overall improving, but still tachycardic 100 teens-120s. Blood pressure soft. Discussed with him continued bedrest for now. He is further discussing with cardiology consideration of JACIEL assessment and cardioversion. Vitals/I&O/Wt Last Vital Signs Temp 96.7 F L 07/16/24 08:00 Pulse 121 H 07/16/24 16:00 Resp 23 H 07/16/24 16:00 BP 93/75 07/16/24 16:00 Pulse Ox 89 L 07/16/24 16:00 O2 Del Method BiPAP 07/15/24 04:45 FiO2 30 07/16/24 07:35 07/16/24 07/16/24 07/16/24 06:59 14:59 22:59 Intake Total 680 / 680 Output Total 1900 / 1900 Balance -1220 / -1220 Weight last 48 hrs Weight 88.269 kg Weight 88.269 kg Physical Exam 2 Const: COMMON NORMALS: patient oriented x3 and alert GENERAL APPEARANCE: c ooperative ORIENTATION/CONSCIOUSNESS: Yes awake HENMT: COMMON NORMALS: oropharynx normal Resp: COMMON NORMALS: normal respiratory effort and clear to auscultation bilaterally AUSCULTATION: clear to auscultation bilaterally Cardio: COMMON NORMALS: S1 normal heart sound present, S2 normal heart sound present and No murmurs present (Cardio) RATE: tachycardic RHYTHM: abnormal rhythm irregularly irregular HEART SOUNDS: S1 normal heart sound present and S2 normal heart sound present GI: COMMON NORMALS: Normal to inspection, nondistended, normoactive bowel sounds present, Soft to palpation and non-tender PALPATION: Yes Soft to palpation Extremity: COMMON NORMALS: no joint enlargement GENERAL: Yes edema (Trace) Neuro: COMMON NORMALS: patient oriented x3 and moves all extremities S ENSORIUM/ORIENTATION: Yes alert Skin: COMMON NORMALS: no rashes or lesions noted GENERAL SKIN EXAM: no rashes or lesions noted Urinary Catheter Management: Moralez: Cath Placed During This Visit: yes Reason for Continuing Indwelling Catheter: Accurate Measurement of Urinary Output in Critically Ill Patients Urinary Catheter Date of Insertion: 07/14/24 Urinary Catheter Time of Insertion: 17:00 Data 07/16/24 04:11 07/16/24 04:11 A&P Assessment and plan (1) Atrial fibrillation with RVR: Heart rate with gradual improvement, although did require a bolus of amiodarone and diltiazem overnight. This morning heart rates 100 teens-120s. Continues with bedrest due to soft blood pressures, severely depressed ejection fraction. Continue to monitor for risk of hypotension. She is further discussing with cardiology consideration of cardioversion. Continue anticoagulation with Lovenox. Reviewed potassium, digoxin level. Oral maintenance digoxin has been added. Reviewed cardiology note. Discussed with nursing, cardiology, case investigator. Increased risk of sudden , life-threatening arrhythmia, complication secondary to severely reduced ejection fraction, he verbalized understanding. Would want attempted resuscitation. Would be okay discussing LifeVest with cardiology. Discussed with him concern for fluctuation in renal function, although so far she has been (2) CHF (congestive heart failure): Reviewed intake and output, CBC, CMP, vitals, renal function. Will recheck magnesium. Reviewed intake and output, reviewed chemistry, and negative balance, blood pressure with improvement today, blood on soft side, appears orthostatic with standing up. Severe cardiomyopathy, EF 15%. Grade 3 diastolic dysfunction. Continue attempts to achieve better control of heart rate, monitoring blood pressures with risk of low output failure, hypotension and shock. Reviewed echocardiogram results, discussed with him and his . Cardiology additionally to consider further risk stratification with him with coronary angiogram. Will need LifeVest prior to discharge. Initial admission to intensive care unit, monitor hemodynamics with risk of low output failure. Plan Degenerative disc disease: Longstanding degenerative disc disease since 1999, with a history of two failed neck surgeries and a subsequent five-level back surgery, contributing to chronic pain, sleep disturbances, and functional limitations. - Maintain current pain management regimen. - Consider referral to a metal painter for further optimization of therapy. RLS: He reports severe RLS, and absolutely must have his ropinirole otherwise symptoms get out of control and are extremely difficult to manage. Resumed ropinirole. Discussed with his at bedside who came in for visit. PDMP PDMP Reviewed: Not Reviewed Attestations 2 Medical Necessity Statement*: Continue admission for assessment and management of difficult to control atrial fibrillation with RVR in setting of severe cardiomyopathy with severely decreased ejection fraction, CHF. and High MDM includes amount and/or complexity of data reviewed/ordered [ resulted lab(s)/test(s), ordered lab(s)/test(s) and other healthcare professional discussion] and described risk of complication, morbidity or mortality of management as documented Diagnoses Atrial fibrillation with RVR I48.91 CHF (congestive heart failure) I50.9
[2024-07-16] MEDS: polyethylene glycol 3350 Pkt 17 gm PO (19:50)
[2024-07-16] MEDS: docusate sodium 100 mg Capsule 200 MG PO (19:50)
[2024-07-17] VITALS (42 sets, daily range): BP systolic 97–133; BP diastolic 48–92; PULSE 94–142; RESP 10–33; TEMP 36.4–37.2; O2SAT 89–98; BMI 28.7
[2024-07-17 04:25] LABS: Basophils % 0.2 %; Eosinophils # 0.1 10^3/uL (0.0-0.8); Hematocrit 44.8 % (37-53); Lymphocytes # 1.5 10^3/uL (0.8-4.8); Lymphocytes % 24.7 %; Mean Corpuscular HGB Conc 33.5 g/dL (30-55); Mean Corpuscular Hemoglobin 30.7 pg (27-33); Mean Corpuscular Volume 91.6 fl (82-101); Mean Platelet Volume 9.9 fL (7.4-10.4); Monocytes # 0.7 10^3/uL (0.2-0.9); Monocytes % 11.9 %; Neutrophils # 3.59 10^3/uL (1.8-7.7); Nucleated Red Blood Cells % 0 %; Platelet Count 232 10^3/cmm (157-399); Red Blood Count 4.89 10^6/uL (3.85-5.65); White Blood Count 5.88 10^3/uL (3.29-11.43)
[2024-07-17 04:50] LABS: Magnesium 1.7 mg/dL (1.7-2.3)
[2024-07-17 04:52] LABS: Alanine Aminotransferase 26 U/L (0-41); Albumin Level 3.6 g/dL (3.5-5.2); Alkaline Phosphatase 99 U/L (40-130); Aspartate Amino Transferase 26 U/L (0-40); Blood Urea Nitrogen 12 mg/dL (8-23); Calcium 9.2 mg/dL (8.5-10.5); Carbon Dioxide 36 mmol/L (22-29); Chloride 93 mmol/L (98-107); Creatinine Clr Calc Pharmacy 93.1112; Glucose 105 mg/dL (65-115); Osmolality Calculated 282 mOsm/kg (285-295); Sodium 136 mmol/L (136-145); Total Bilirubin 0.5 mg/dL (0.15-1.2); Total Protein 5.6 g/dL (6.6-8.7)
[2024-07-17 04:53] LABS: Anion Gap 11.6 (5-19); Potassium 4.6 mmol/L (3.5-5.1)
--- NOTE | 2024-07-17 07:06 | ANES.PREANE2 ---
Pre-Anesthetic Assessment Height/Weight: Height 1.75 m Weight 88.269 kg Temp Pulse Resp BP Pulse Ox O2 Del Method FiO2 97.8 F 114 H 20 H 122/74 98 BiPAP 30 07/17/24 04:00 07/17/24 06:00 07/17/24 06:00 07/17/24 06:00 07/17/24 06:00 07/15/24 04:45 07/17/24 04:00 Pulmonary pulm edema - given lasix CV/HEM Atrial Fibrillation, Coronary Artery Disease and Congestive Heart Failure CONCLUSIONS Moderately increased left ventricular cavity size. Severely decreased left ventricular systolic function. Left ventricular ejection fraction is estimated at 15 %. Grade III/IV diastolic dysfunction (restrictive filling pattern), severely elevated filling pressures. Global left ventricular hypokinesis. Moderately increased right atrial size. Moderately increased left atrial size. Moderate aortic valve calcification. Mild aortic valve stenosis, mean gradient 1.2 mmHg, NELSON 1.6 cm squared. Cannot rule out pseudo aortic stenosis secondary to low cardiac output,trace aortic valve regurgitation. There is no pericardial effusion. Right atrial pressure is around 5 mm of mercury. GI Gastroesophageal Reflux Disease Metabolic Hyperlipidemia Neuropsych carotid stenosis Medications/Allergies Home Medications ?Medication ?Instructions ?Recorded ?Confirmed ?Last Taken ?Type omeprazole 20 mg capsule,delayed See Rx Instructions .Route 05/21/23 07/14/24 Unknown Rx release .COMPLEX #180 caps atorvastatin 40 mg tablet 40 mg PO DAILY 06/21/24 07/14/24 Unknown History fluticasone furoate 100 1 ea inhalation DAILY 06/21/24 07/14/24 Unknown History mcg-vilanterol 25 mcg/dose inhalation powder (Breo Ellipta) tamsulosin 0.4 mg capsule 0.4 mg PO BID 06/21/24 07/14/24 Unknown History nebivolol 5 mg tablet 5 mg PO DAILY 07/14/24 07/14/24 Unknown History ropinirole 4 mg tablet 4 mg PO DAILY 07/14/24 07/14/24 Unknown History Allergies Allergy/AdvReac Type Severity Reaction Status Date / Time codeine Allergy unknown Verified 03/29/23 10:39 rosuvastatin Allergy Unknown Verified 03/29/23 10:39 Current Medications Generic Name Dose Route Start Last Admin Trade Name Freq PRN Reason Stop Dose Admin Acetaminophen 650 mg 07/14/24 13:52 07/14/24 21:15 Acetaminophen 325 Mg Tablet PO 650 mg Q6H PRN Administration Mild/Mod Pain Or Temp >/= 101 Digoxin 125 mcg 07/16/24 09:00 07/16/24 11:12 Digoxin 125 Mcg Tablet PO 125 mcg DAILY TALAT Administration Docusate Sodium 200 mg 07/16/24 19:40 07/16/24 19:52 Docusate Sodium 100 Mg Capsule PO Not Given BEDTIME TALAT Enoxaparin Sodium 90 mg 07/16/24 11:30 07/16/24 23:53 Enoxaparin 100 Mg/Ml Syringe 1 mg/kg (90 mg) 90 mg SUBCUT Administration Q12H TALAT Gabapentin 300 mg 07/14/24 21:53 07/16/24 19:50 Gabapentin 300 Mg Capsule PO 300 mg TID TALAT Administration Amiodarone HCl/Dextrose 360 mg in 200 mls @ 0 mls/hr 07/14/24 10:33 07/16/24 21:54 Nexterone IV 0.5 mg/min .Q0M TALAT 16.67 mls/hr Protocol Administration Per Protocol Oxycodone/Acetaminophen 1 tab 07/14/24 21:51 07/15/24 11:40 Oxycodone-Apap 5-325 Mg Tablet PO 1 tab Q6H PRN Administration MODERATE PAIN Pantoprazole Sodium 40 mg 07/14/24 14:00 07/16/24 13:01 Pantoprazole 40 Mg Sdv IVP 40 mg Q24H TALAT Administration Polyethylene Glycol 17 gm 07/16/24 19:35 07/16/24 19:50 Polyethylene Glycol 3350 Pkt 17 Gm PO 17 gm DAILY TALAT Administration Potassium Chloride 20 meq 07/14/24 18:00 07/16/24 17:21 Potassium Chloride Er 20 Meq Tablet PO 20 meq BID TALAT Administration Ropinirole HCl 4 mg 07/14/24 15:00 07/16/24 08:09 Ropinirole 2 Mg Tablet PO 4 mg DAILY TALAT Administration Tamsulosin HCl 0.4 mg 07/14/24 18:00 07/16/24 17:21 Tamsulosin 0.4 Mg Capsule PO 0.4 mg BID TALAT Administration PFSH Anesthesia Medical History Prostate cancer Surgical History H/O colonoscopy H/O cardiac radiofrequency ablation H/O knee surgery H/O cervical discectomy Family History Mother , at age 90 No problems noted. Father , at age 66 Stroke Social History (Updated 07/14/24 @ 15:03 by Keyon Song MD) Smoking and tobacco/nicotine status: former use of tobacco/nicotine Alcohol intake: current Alcohol intake frequency: few times a month Substance/Drug Use: current Substance/Drug use frequency: daily Marital status: Current occupational status: disabled Data Anesthesia 07/17/24 03:39 07/17/24 03:39 Short CBC 07/16/24 07/17/24 Range/Units 04:11 03:39 WBC 6.58 5.88 (3.29-11.43) 10^3/uL Hgb 14.50 15.00 (11.27-16.99) g/dL Hct 43.3 44.8 (37-53) % MCV 92.9 91.6 (82-101) fl Plt Count 226 232 (157-399) 10^3/cmm Neut % (Auto) 70.8 61.0 % Neut # (Auto) 4.66 3.59 (1.8-7.7) 10^3/uL BMP 07/16/24 07/17/24 04:11 03:39 Sodium 135 L 136 Potassium 4.1 4.6 Chloride 94 L 93 L Carbon Dioxide 29 36 H BUN 17 12 Creatinine 0.7 0.7 Glucose 109 105 Calcium 9.1 9.2 Liver Function 07/16/24 07/17/24 Range/Units 04:11 03:39 Total Bilirubin 0.5 0.5 (0.15-1.2) mg/dL AST 28 26 (0-40) U/L ALT 29 26 (0-41) U/L Alkaline Phosphatase 100 99 (40-130) U/L Albumin 3.7 3.6 (3.5-5.2) g/dL Cardiac Studies: Echocardiogram 07/14/24
[2024-07-17] MEDS: digoxin 125 mcg Tablet PO (08:39)
[2024-07-17] MEDS: gabapentin 300 mg Capsule PO ×3 (08:39→20:06)
[2024-07-17] MEDS: tamsulosin 0.4 mg Capsule PO ×2 (08:39→17:56)
[2024-07-17] MEDS: ropinirole 2 mg Tablet 4 MG PO (08:40)
[2024-07-17] MEDS: enoxaparin 100 mg/mL Syringe 90 MG SUBCUT ×2 (10:39→22:33)
--- NOTE | 2024-07-17 10:56 | W.PM.OPSUD ---
Surgery/Procedure H&P Update DATE OF PROCEDURE: July 17, 2024 DATE H&P PERFORMED: 07/14/24 H&P UPDATE INFORMATION: I have reviewed H&P completed within last 30 days, I have examined patient prior to procedure and Changes to prior documentation as noted here PREOP DIAGNOSIS: Atrial fibrillation with RVR PRIMARY INDICATION FOR PROCEDURE: Atrial fibrillation with RVR PLANNED PROCEDURE: JACIEL/ Cardioversion Anesthesia team available for sedation
--- NOTE | 2024-07-17 11:25 | P.PCN_ITS ---
Procedure Note: Date of procedure: 07/17/24 Pre-procedure diagnosis: Atrial fibrillation with RVR Post-procedure diagnosis: other (Atrial fibrillation with RVR) Procedure: After anesthesia team sedated patient, JACIEL was performed ruling out left atrial appendage thrombus. We delivered synchronized shocks x 3 at 200J but failed to convert patient back to sinus rhythm. Patient stayed in atrial fibrillation Performing Provider: Charles Malik Complications: None Condition: stable Disposition: ICU Coding [facility]
--- NOTE | 2024-07-17 11:37 | USCV_ITS ---
Lauren Thornton Age: 73 Gender: M : 1950 Exam Date: 07/17/2024 10:59 Ordering Phys: Zoe Arias NP Technologist: [place] [facility] [place]: card conversion BP: / HR: Rhythm: Sinus Technical Quality: Good MEASUREMENTS (Male / Female) Normal Values Medications Per anesthesia team Complications None Proc. Components After anesthesia team sedated patient, we proceeded with advancing JACIEL probe FINDINGS Left Ventricle LV systolic function severely reduced with EF 15 to 20%. Severe global hypokinesis. Right Ventricle Grossly normal Right Atrium Dilated Left Atrium Dilated LA Appendage No left atrial appendage thrombus seen. IA Septum Grossly normal. Mitral Valve Structurally normal mitral valve. Mild to moderate mitral regurgitation. Aortic Valve Structurally normal aortic valve. Tricuspid Valve Grossly noraml Pulmonic Valve Not well visualized Pericardium Normal Aorta Mild to moderate atherosclerotic plaque CONCLUSIONS LV systolic function is severely reduced with EF of 15 to 20%. Biatrial dilation. No left atrial appendage thrombus seen. Mild to moderate mitral regurgitation. Mild to moderate atherosclerotic plaque seen in aorta Charles Malik MD (Electronically Signed) Final Date: 20 Jul 2024 15:09 S
--- NOTE | 2024-07-17 11:48 | PC.NURSE ---
1110 -- Anesthesiologist, Dr Sultana, line maintenance technician, and this nurse at bedside. Time out done. Anesthesia given per anesthesiologist. Echo done, no thrombus seen. Synchronous cardoioversion done x 3 biphasic 200J. Patient has a few sinus beats but remains in A-fib. See anesthesia charting. Dr. Sultana attempted to talk to , not in waiting room. Patient resting comfortably in bed, respirations unlabored, v/s stable.
--- NOTE | 2024-07-17 12:10 | P.PN_ITS ---
<Statement entered by Charles Malik M.D - 07/19/24 10:11> Patient was evaluated and cared for in conjunction with an advanced practice practitioner.? I personally examined the patient and reviewed the chart and all pertinent data including imaging, telemetry, and laboratory results.? I discussed the patient in detail with the advanced practice practitioner.? Please see? their note for complete H&P, testing results and agreed upon plan of care for the patient. Patient failed cardioversion attempts. Continue digoxin, amiodarone, Start metoprolol. GENERAL: Patient is alert, awake and oriented x3. HEART: Regular S1 and S2 LUNGS: Mild crackles bilaterally CENTRAL NERVOUS SYSTEM: Grossly nonfocal. EXTREMITIES: Lower extremities without edema bilaterally. Subjective 2 Subjective: Patient's cardioversion was attempted and patient went back into sinus rhythm for a few seconds and then went back into A-fib. Procedure was ultimately unsuccessful. Pulse is still in the 120s. Still has slight crackles. He was - 3223 over 24 hours. Vitals/I&O/Wt Last Vital Signs Temp 97.9 F 07/17/24 08:00 Pulse 120 H 07/17/24 10:00 Resp 25 H 07/17/24 10:00 BP 120/76 07/17/24 10:00 Pulse Ox 94 07/17/24 10:00 O2 Del Method Nasal Cannula 07/17/24 10:00 O2 Flow Rate 2 07/17/24 10:00 FiO2 30 07/17/24 04:00 07/16/24 07/17/24 07/17/24 22:59 06:59 14:59 Intake Total 436.706 / 1116.706 260 / 260 Output Total 700 / 2600 1500 / 4100 Balance -263.294 / -1483.294 -1500 / -2983.294 260 / 260 Weight last 48 hrs Weight 194 lb 9.597 oz Weight 194 lb 9.597 oz Physical Exam 2 Narrative: General: No apparent distress, healthy appearing, well nourished Muskuloskeletal: Full ROM Respiratory: Normal respiratory effort, clear except fine crackles left lower lobe, no use of accessory muscles Cardio: No JVD, irregularly irregular rate and rhythm, S1 S2 normal, no murmurs, peripheral pulses 2+ radial palpated bilaterally GI: Normal to inspection, nondistended Extremities: Full ROM, normal, normal capillary refill, no cyanosis or edema Neuro: Alert and oriented x4, no focal motor deficits Psych: Affect normal, denies suicidal ideation, mental status grossly normal Skin: No rashes or lesions noted, no wounds Urinary Catheter Management: Moralez: Cath Placed During This Visit: yes Reason for Continuing Indwelling Catheter: Accurate Measurement of Urinary Output in Critically Ill Patients Urinary Catheter Date of Insertion: 07/14/24 Urinary Catheter Time of Insertion: 17:00 Data 07/17/24 03:39 07/17/24 03:39 A&P Assessment and plan (1) CAD (coronary artery disease): (2) CHF (congestive heart failure): (3) Atrial fibrillation with RVR: Plan Patient's heart rate still controlled despite multiple attempts at cardioversion. Will ccontinue Lovenox to 1 mg/kg every 12. Will continue amio drip, digoxin, and add low dose metoprolol 12.5 BID. Due to crackles, will give small dose of lasix. He responds well to this. PDMP PDMP Reviewed: Not Reviewed Attestations 2 Medical Necessity Statement*: deferred to primary Coding Level of Care Code Acute Code for g Fwd Diagnoses Coronary artery disease involving [place] coronary artery of [place] heart without angina pectoris I25.10 Coronary Disease-Associated Artery/Lesion type: [place] artery [place] vs. transplanted heart: [place] heart Associated angina: without angina CHF (congestive heart failure) I50.9 Atrial fibrillation with RVR I48.91
[2024-07-17] MEDS: FUROsemide 10 mg/mL SDV 2mL 20 MG IVP (12:37)
[2024-07-17] MEDS: pantoprazole 40 mg SDV IVP (13:09)
--- NOTE | 2024-07-17 16:18 | PM.PN ---
Subjective Subjective: He is overall feeling slightly better. He is still tachycardic. Awaiting cardioversion. Vitals/I&O/Wt Last Vital Signs Temp 98.9 F 07/17/24 12:00 Pulse 125 H 07/17/24 14:00 Resp 16 07/17/24 14:00 BP 124/76 07/17/24 14:00 Pulse Ox 95 07/17/24 14:00 O2 Del Method Nasal Cannula 07/17/24 14:00 O2 Flow Rate 2 07/17/24 14:00 FiO2 30 07/17/24 04:00 07/17/24 07/17/24 07/17/24 06:59 14:59 22:59 Intake Total 260 / 260 Output Total 1500 / 4100 Balance -1500 / -2983.294 260 / 260 Weight last 48 hrs Weight 88.269 kg Weight 88.269 kg Physical Exam Const: COMMON NORMALS: patient oriented x3 and alert GENERAL APPEARANCE: cooperative ORIENTATION/CONSCIOUSNESS: Yes awake HENMT: COMMON NORMALS: oropharynx normal Resp: COMMON NORMALS: normal respiratory effort and clear to auscultation bilaterally AUSCULTATION: clear to auscultation bilaterally Cardio: COMMON NORMALS: regular rhythm, S1 normal heart sound present, S2 normal heart sound present and No murmurs present (Cardio) RATE: tachycardic RHYTHM: regular rhythm and abnormal rhythm irregularly irregular HEART SOUNDS: S1 normal heart sound present and S2 normal heart sound present GI: COMMON NORMALS: Normal to inspection, nondistended, normoactive bowel sounds present, Soft to palpation and non-tender PALPATION: Yes Soft to palpation Extremity: COMMON NORMALS: no joint enlargement GENERAL: Yes edema (Trace) Neuro: COMMON NORMALS: patient oriented x3 and moves all extremities SENSORIUM/ORIENTATION: Yes alert Skin: COMMON NORMALS: no rashes or lesions noted GENERAL SKIN EXAM: no rashes or lesions noted Urinary Catheter Management: Moralez: Cath Placed During This Visit: yes Reason for Continuing Indwelling Catheter: Accurate Measurement of Urinary Output in Critically Ill Patients Urinary Catheter Date of Insertion: 07/14/24 Urinary Catheter Time of Insertion: 17:00 Data 07/17/24 03:39 07/17/24 03:39 A&P Assessment and plan (1) Atrial fibrillation with RVR: Awaiting cardioversion. Continue amiodarone, continue digoxin. Monitor for risk of digoxin toxicity, monitor for risk of hypotension, bradycardia. Reviewed cardiology note, discussed with cardiology. Discussed with nursing, top case assembler. Once heart rate better controlled, less orthostatic, consider PT assessment. Continue anticoagulation with Lovenox. Reviewed potassium, digoxin level. Oral maintenance digoxin has been added. Reviewed cardiology note. Discussed with nursing, cardiology, top case assembler. Increased risk of sudden , life-threatening arrhythmia, complication secondary to severely reduced ejection fraction, he verbalized understanding. Would want attempted resuscitation. Would be okay discussing LifeVest with cardiology. Discussed with him concern for fluctuation in renal function, although so far she has been (2) CHF (congestive heart failure): Hold off further diuresis. Reviewed magnesium. Will give magnesium. Recheck Reviewed intake and output, CBC, CMP, vitals, renal function. Reviewed intake and output, reviewed chemistry, and negative balance, blood pressure with improvement today, blood on soft side, appears orthostatic with standing up. Severe cardiomyopathy, EF 15%. Grade 3 diastolic dysfunction. Continue attempts to achieve better control of heart rate, monitoring blood pressures with risk of low output failure, hypotension and shock. Reviewed echocardiogram results, discussed with him and his . Cardiology additionally to consider further risk stratification with him with coronary angiogram. Will need LifeVest prior to discharge. Initial admission to intensive care unit, monitor hemodynamics with risk of low output failure. Plan Degenerative disc disease: Longstanding degenerative disc disease since 1999, with a history of two failed neck surgeries and a subsequent five-level back surgery, contributing to chronic pain, sleep disturbances, and functional limitations. - Maintain current pain management regimen. - Consider referral to a interior decorator painting for further optimization of therapy. RLS: He reports severe RLS, and absolutely must have his ropinirole otherwise symptoms get out of control and are extremely difficult to manage. Resumed ropinirole. Discussed with his at bedside who came in for visit. PDMP PDMP Reviewed: Not Reviewed Attestations Medical Necessity Statement*: Continue admission for assessment management of A-fib with RVR, CHF. Initial minute with severe cardiomyopathy, EF down to 50%, grade 3 diastolic dysfunction. and High MDM includes amount and/or complexity of data reviewed/ordered [ previous or external records, resulted lab(s)/test(s), ordered lab(s)/test(s) and other healthcare professional discussion] and described risk of complication, morbidity or mortality of management as documented Diagnoses Atrial fibrillation with RVR I48.91 CHF (congestive heart failure) I50.9
[2024-07-17] MEDS: magnesium sulfate premix 2 GM/50 ML PIGGYBACK IV (16:52)
[2024-07-17] MEDS: metoprolol tartrate 25 mg Tablet 12.5 MG PO (20:06)
[2024-07-17] MEDS: docusate sodium 100 mg Capsule 200 MG PO (20:06)
[2024-07-18] VITALS (25 sets, daily range): BP systolic 91–134; BP diastolic 51–95; PULSE 96–134; RESP 3–38; TEMP 36.5–36.9; O2SAT 82–97
[2024-07-18 04:35] LABS: Basophils % 0.2 %; Eosinophils % 0.4 %; Hematocrit 48.2 % (37-53); Lymphocytes # 1.1 10^3/uL (0.8-4.8); Lymphocytes % 12.5 %; Mean Corpuscular HGB Conc 32.6 g/dL (30-55); Mean Corpuscular Hemoglobin 30.3 pg (27-33); Mean Corpuscular Volume 93.1 fl (82-101); Mean Platelet Volume 10.3 fL (7.4-10.4); Monocytes % 11.3 %; Neutrophils # 6.78 10^3/uL (1.8-7.7); Neutrophils % 75.2 %; Nucleated Red Blood Cells % 0 %; Platelet Count 243 10^3/cmm (157-399); Red Blood Count 5.18 10^6/uL (3.85-5.65); Red Cell Distribution Width 12.9 % (12.1-15.1); White Blood Count 9.03 10^3/uL (3.29-11.43)
[2024-07-18 05:43] LABS: Alanine Aminotransferase 35 U/L (0-41); Albumin Level 3.6 g/dL (3.5-5.2); Alkaline Phosphatase 100 U/L (40-130); Aspartate Amino Transferase 35 U/L (0-40); Blood Urea Nitrogen 14 mg/dL (8-23); Calcium 8.7 mg/dL (8.5-10.5); Carbon Dioxide 33 mmol/L (22-29); Chloride 90 mmol/L (98-107); Creatinine Clr Calc Pharmacy 93.1112; Globulin 2.2 g/dL (1.3-4.6); Glucose 120 mg/dL (65-115); Magnesium 1.9 mg/dL (1.7-2.3); Osmolality Calculated 276 mOsm/kg (285-295); Sodium 132 mmol/L (136-145); Total Bilirubin 0.6 mg/dL (0.15-1.2); Total Protein 5.8 g/dL (6.6-8.7)
[2024-07-18 05:44] LABS: Anion Gap 13.5 (5-19); Potassium 4.5 mmol/L (3.5-5.1)
--- NOTE | 2024-07-18 08:38 | PC.SOCIAL ---
IMM Update pg 2 of IMM Updated and reviewed w/ patient. Copy provided and copy dated, initialed and placed in chart.
[2024-07-18] MEDS: gabapentin 300 mg Capsule PO ×3 (08:55→21:38)
[2024-07-18] MEDS: ropinirole 2 mg Tablet 4 MG PO (08:55)
[2024-07-18] MEDS: digoxin 125 mcg Tablet 250 MCG PO (08:55)
[2024-07-18] MEDS: tamsulosin 0.4 mg Capsule PO ×2 (08:55→19:39)
[2024-07-18] MEDS: FUROsemide 10 mg/mL SDV 2mL 20 MG IVP (08:56)
[2024-07-18] MEDS: metoprolol tartrate 25 mg Tablet 12.5 MG PO ×2 (08:56→21:37)
[2024-07-18] MEDS: polyethylene glycol 3350 Pkt 17 gm PO (08:56)
--- NOTE | 2024-07-18 10:26 | PM.PN ---
Subjective Subjective: Patient MRI without complaints. Heart rate still elevated despite adding metoprolol. Blood pressure is soft at 93/70. Digoxin level was on the lower side of normal. He responded well was -2 L after the 20 mg of Lasix. Vitals/I&O/Wt Last Vital Signs Temp 97.7 F 07/18/24 06:00 Pulse 127 H 07/18/24 08:55 Resp 18 07/18/24 08:20 BP 93/70 07/18/24 08:00 Pulse Ox 97 07/18/24 08:20 O2 Del Method Nasal Cannula 07/18/24 08:20 O2 Flow Rate 2 07/18/24 08:20 FiO2 30 07/17/24 04:00 07/17/24 07/18/24 07/18/24 22:59 06:59 14:59 Intake Total 650 / 910 200 / 1110 60 / 60 Output Total 2900 / 2900 150 / 3050 Balance -2250 / -1989 50 / -1940 60 / 60 Weight last 48 hrs Weight 191 lb 11.2 oz Weight 194 lb 9.597 oz Physical Exam Narrative: General: No apparent distress, healthy appearing, well nourished Muskuloskeletal: Full ROM Respiratory: Normal respiratory effort, clear except fine crackles left lower lobe, no use of accessory muscles Cardio: No JVD, irregularly irregular rate and rhythm, S1 S2 normal, no murmurs, peripheral pulses 2+ radial palpated bilaterally GI: Normal to inspection, nondistended Extremities: Full ROM, normal, normal capillary refill, no cyanosis or edema Neuro: Alert and oriented x4, no focal motor deficits Psych: Affect normal, denies suicidal ideation, mental status grossly normal Skin: No rashes or lesions noted, no wounds Urinary Catheter Management: Moralez: Cath Placed During This Visit: yes Reason for Continuing Indwelling Catheter: Accurate Measurement of Urinary Output in Critically Ill Patients Urinary Catheter Date of Insertion: 07/14/24 Urinary Catheter Time of Insertion: 17:00 Data 07/18/24 04:01 07/18/24 05:15 A&P Assessment and plan (1) CAD (coronary artery disease): (2) CHF (congestive heart failure): (3) Atrial fibrillation with RVR: Plan Patient's heart rate still controlled despite multiple attempts at cardioversion. Will ccontinue Lovenox to 1 mg/kg every 12. Will continue amio drip for 2 hours and give oral dose now. Stop drip after 2 hours, increase digoxin to 250 mcg recheck dig level in 2 days, and continue low dose metoprolol 12.5 BID. Due to crackles, will give small dose of lasix 20 mg IV. He responds well to this. PDMP PDMP Reviewed: Not Reviewed Attestations Medical Necessity Statement*: deferred to primary Coding Level of Care Code Acute Code for g Fwd Diagnoses Coronary artery disease involving [place] coronary artery of [place] heart without angina pectoris I25.10 Coronary Disease-Associated Artery/Lesion type: [place] artery [place] vs. transplanted heart: [place] heart Associated angina: without angina CHF (congestive heart failure) I50.9 Atrial fibrillation with RVR I48.91
[2024-07-18] MEDS: ondansetron 2 mg/ML SDV 2 mL 4 MG IVP (11:23)
[2024-07-18] MEDS: enoxaparin 100 mg/mL Syringe 90 MG SUBCUT (11:23)
[2024-07-18] MEDS: amiodarone 200 mg Tablet 400 MG PO ×2 (11:49→19:39)
[2024-07-18] MEDS: digoxin 250 mcg/ml INJ 2 mL IVP (11:49)
[2024-07-18] MEDS: pantoprazole 40 mg SDV IVP (15:02)
[2024-07-18] MEDS: oxyCODONE-APAP 5-325 mg Tablet 1 TAB PO (15:07)
--- NOTE | 2024-07-18 15:26 | P.PN_ITS ---
Subjective 2 Subjective: Hospital course, labs appreciated. Patient sitting comfortably in bed. On 2 L of ox supplementation. Heart rate at rest ranging around 100-120 bpm. Vitals/I&O/Wt Last Vital Signs Temp 98.1 F 07/18/24 09:00 Pulse 97 07/18/24 12:00 Resp 25 H 07/18/24 15:07 BP 101/69 07/18/24 12:00 Pulse Ox 96 07/18/24 15:07 O2 Del Method Nasal Cannula 07/18/24 08:20 O2 Flow Rate 2 07/18/24 08:20 FiO2 30 07/17/24 04:00 07/18/24 07/18/24 07/18/24 06:59 14:59 22:59 Intake Total 200 / 1110 60 / 60 Output Total 150 / 3050 Balance 50 / -1940 60 / 60 Weight last 48 hrs Weight 86.954 kg Weight 88.269 kg Physical Exam 2 Const: COMMON NORMALS: patient oriented x3 and alert GENERAL APPEARANCE: c ooperative ORIENTATION/CONSCIOUSNESS: Yes awake HENMT: COMMON NORMALS: oropharynx normal Resp: COMMON NORMALS: normal respiratory effort and clear to auscultation bilaterally AUSCULTATION: clear to auscultation bilaterally Cardio: COMMON NORMALS: regular rhythm, S1 normal heart sound present, S2 normal heart sound present and No murmurs present (Cardio) RATE: tachycardic RHYTHM: regular rhythm and abnormal rhythm irregularly irregular HEART SOUNDS: S1 normal heart sound present and S2 normal heart sound present GI: COMMON NORMALS: Normal to inspection, nondistended, normoactive bowel sounds present, Soft to palpation and non-tender PALPATION: Yes Soft to palpation Extremity: COMMON NORMALS: no joint enlargement GENERAL: Yes edema (Trace) Neuro: COMMON NORMALS: patient oriented x3 and moves all extremities S ENSORIUM/ORIENTATION: Yes alert Skin: COMMON NORMALS: no rashes or lesions noted GENERAL SKIN EXAM: no rashes or lesions noted Urinary Catheter Management: Moralez: Cath Placed During This Visit: yes Reason for Continuing Indwelling Catheter: Accurate Measurement of Urinary Output in Critically Ill Patients Urinary Catheter Date of Insertion: 07/14/24 Urinary Catheter Time of Insertion: 17:00 Data 07/18/24 04:01 07/18/24 05:15 A&P Assessment and plan (1) Atrial fibrillation with RVR: Post cardioversion. Failed. It seems patient received only a partial digoxin load earlier in the admission with IV digoxin 125 mcg 3 times. Digoxin levels low subsequently. Currently on 125 mcg increased to 250 mcg today. Currently on amiodarone drip. Appreciate cardiology recommendations. Discussed in detail with cardiology. Plan to transition to oral amiodarone 4 mg twice daily and discontinue drip. Give 250 mcg extra of IV digoxin along with oral digoxin and repeat levels in AM. Monitor electrolytes. Patient does have severe congestive systolic and diastolic heart failure. Will plan to keep patient on the net negative side. Continue with diuresis. Patient does not improve patient might need to be transferred to tertiary center where ablation can be done. Continue full dose Lovenox 1 mg/kg body weight every 12 hourly for anticoagulation for stroke prevention. Increased risk of sudden , life-threatening arrhythmia, complication secondary to severely reduced ejection fraction, he verbalized understanding. Would want attempted resuscitation. Would be okay discussing LifeVest with cardiology. Discussed with him concern for fluctuation in renal function, although so far she has been (2) CHF (congestive heart failure): Echocardiogram done earlier in the admission showed severe cardiomyopathy with a EF 15%, grade 3 diastolic dysfunction, global LVH, moderately increased LA and RA size, mild aortic valve stenosis. Concern for mild congestive heart failure. IV Lasix 20 mg one-time. Fluid restriction to less than 1500 cc. Strict input charting, daily weights. Continue with metoprolol 12.5 mg twice daily. Uptitrate as per goal blood pressure. Will add MELVI/ARB/Arni depending on BMP and blood pressure going forward. Will request cardiology to discuss further with patient regarding possible need of LifeVest on discharge. (3) Cardiomyopathy: Plan Degenerative disc disease: Longstanding degenerative disc disease since 1999, with a history of two failed neck surgeries and a subsequent five-level back surgery, contributing to chronic pain, sleep disturbances, and functional limitations. - Maintain current pain management regimen. - Consider referral to a hand paint mixer for further optimization of therapy. RLS: He reports severe RLS, and absolutely must have his ropinirole otherwise symptoms get out of control and are extremely difficult to manage. Resumed ropinirole. Full code Cardiac diet. Fluid restriction. Protonix OPD prophylaxis Full dose Lovenox will be sufficient for DVT prophylaxis. PDMP PDMP Reviewed: Not Reviewed Attestations 2 Medical Necessity Statement*: Require further hospitalization for management of A-fib with RVR in a patient with severe congestive heart failure with EF 15% Diagnoses Atrial fibrillation with RVR I48.91 CHF (congestive heart failure) I50.9 Cardiomyopathy I42.9
[2024-07-18 16:39] LABS: Anion Gap 14.3 (5-19); Blood Urea Nitrogen 16 mg/dL (8-23); Calcium 8.9 mg/dL (8.5-10.5); Carbon Dioxide 32 mmol/L (22-29); Chloride 88 mmol/L (98-107); Creatinine Clr Calc Pharmacy 92.4811; Glucose 99 mg/dL (65-115); Osmolality Calculated 271 mOsm/kg (285-295); Potassium 4.3 mmol/L (3.5-5.1); Sodium 130 mmol/L (136-145)
[2024-07-18] MEDS: docusate sodium 100 mg Capsule 200 MG PO (21:38)
[2024-07-19] VITALS (19 sets, daily range): BP systolic 96–118; BP diastolic 71–87; PULSE 79–98; RESP 15–31; TEMP 36.6–37; O2SAT 88–99; BMI 28.2
[2024-07-19] MEDS: enoxaparin 100 mg/mL Syringe 90 MG SUBCUT ×3 (00:03→22:41)
[2024-07-19] MEDS: oxyCODONE-APAP 5-325 mg Tablet 1 TAB PO ×2 (03:34→14:02)
[2024-07-19] MEDS: ropinirole 2 mg Tablet 4 MG PO (08:33)
[2024-07-19] MEDS: polyethylene glycol 3350 Pkt 17 gm PO (08:33)
[2024-07-19] MEDS: amiodarone 200 mg Tablet 400 MG PO ×2 (08:34→17:53)
[2024-07-19] MEDS: digoxin 125 mcg Tablet 250 MCG PO (08:34)
[2024-07-19] MEDS: gabapentin 300 mg Capsule PO ×3 (08:34→20:03)
[2024-07-19] MEDS: tamsulosin 0.4 mg Capsule PO ×2 (08:34→17:53)
[2024-07-19] MEDS: metoprolol tartrate 25 mg Tablet 12.5 MG PO ×2 (08:43→10:52)
--- NOTE | 2024-07-19 11:54 | PM.PN ---
Subjective Subjective: Heart rates are better controlled. Vitals/I&O/Wt Last Vital Signs Temp 98.2 F 07/19/24 05:53 Pulse 88 07/19/24 11:25 Resp 26 H 07/19/24 11:25 BP 118/86 07/19/24 11:25 Pulse Ox 96 07/19/24 11:25 O2 Del Method Nasal Cannula 07/19/24 09:09 O2 Flow Rate 2 07/19/24 09:09 FiO2 30 07/17/24 04:00 07/18/24 07/19/24 07/19/24 22:59 06:59 14:59 Intake Total 360 / 680 240 / 240 Output Total 1410 / 1410 200 / 1610 Balance -1050 / -730 -200 / -930 240 / 240 Weight last 48 hrs Weight 191 lb Weight 191 lb 11.2 oz Physical Exam Narrative: GENERAL: Patient is alert, awake and oriented x3. [] NECK: No jugular vein distension. [] HEENT: No cyanosis. No icterus. No pallor. [] HEART: Irregularly irregular LUNGS: Clear to auscultate bilaterally. [] CENTRAL NERVOUS SYSTEM: Grossly nonfocal. [] EXTREMITIES: Lower extremities with 1+ edema bilaterally. Urinary Catheter Management: Moralez: Cath Placed During This Visit: yes Reason for Continuing Indwelling Catheter: Accurate Measurement of Urinary Output in Critically Ill Patients Urinary Catheter Date of Insertion: 07/14/24 Urinary Catheter Time of Insertion: 17:00 Data 07/18/24 04:01 07/18/24 16:09 A&P Assessment and plan (1) Atrial fibrillation with RVR: (2) CHF (congestive heart failure): (3) Cardiomyopathy: (4) Essential hypertension: Plan Patient's heart rate is better controlled. Increase metoprolol to 25 mg twice daily. Continue digoxin and amiodarone. If patient stays stable, we will plan on coronary angiogram on Sunday to rule out ischemic causes of LV dysfunction Continue anticoagulation with lovenox Thank you for involving us in the care of this patient. Please call with questions PDMP PDMP Reviewed: Not Reviewed Attestations Medical Necessity Statement*: Care expected to cross 2 midnights. Coding Level of Care Code Acute Code for [facility] Diagnoses Atrial fibrillation with RVR I48.91 CHF (congestive heart failure) I50.9 Cardiomyopathy I42.9 Essential hypertension I10
[2024-07-19] MEDS: pantoprazole 40 mg SDV IVP (14:00)
--- NOTE | 2024-07-19 14:02 | P.PN_ITS ---
Subjective 2 Subjective: No acute events overnight. Today morning patient seen sitting in recliner. Heart rate better controlled mostly running in high 80s to low 90s. Patient states he is feeling better. Denies any nausea, vomiting, headache. Vitals/I&O/Wt Last Vital Signs Temp 98.2 F 07/19/24 05:53 Pulse 88 07/19/24 11:25 Resp 26 H 07/19/24 11:25 BP 118/86 07/19/24 11:25 Pulse Ox 96 07/19/24 11:25 O2 Del Method Nasal Cannula 07/19/24 09:09 O2 Flow Rate 2 07/19/24 09:09 FiO2 30 07/17/24 04:00 07/18/24 07/19/24 07/19/24 22:59 06:59 14:59 Intake Total 360 / 680 240 / 240 Output Total 1410 / 1410 200 / 1610 Balance -1050 / -730 -200 / -930 240 / 240 Weight last 48 hrs Weight 86.636 kg Weight 86.954 kg Physical Exam 2 Const: COMMON NORMALS: patient oriented x3 and alert GENERAL APPEARANCE: c ooperative ORIENTATION/CONSCIOUSNESS: Yes awake HENMT: COMMON NORMALS: oropharynx normal Resp: COMMON NORMALS: normal respiratory effort and clear to auscultation bilaterally AUSCULTATION: clear to auscultation bilaterally Cardio: COMMON NORMALS: regular rhythm, S1 normal heart sound present, S2 normal heart sound present and No murmurs present (Cardio) RATE: tachycardic RHYTHM: regular rhythm and abnormal rhythm irregularly irregular HEART SOUNDS: S1 normal heart sound present and S2 normal heart sound present GI: COMMON NORMALS: Normal to inspection, nondistended, normoactive bowel sounds present, Soft to palpation and non-tender PALPATION: Yes Soft to palpation Extremity: COMMON NORMALS: no joint enlargement GENERAL: Yes edema (Trace) Neuro: COMMON NORMALS: patient oriented x3 and moves all extremities S ENSORIUM/ORIENTATION: Yes alert Skin: COMMON NORMALS: no rashes or lesions noted GENERAL SKIN EXAM: no rashes or lesions noted Urinary Catheter Management: Moralez: Cath Placed During This Visit: yes Reason for Continuing Indwelling Catheter: Accurate Measurement of Urinary Output in Critically Ill Patients Urinary Catheter Date of Insertion: 07/14/24 Urinary Catheter Time of Insertion: 17:00 Data 07/18/24 04:01 07/18/24 16:09 A&P Assessment and plan (1) Atrial fibrillation with RVR: Post cardioversion. Failed. Heart rate better controlled now. Continue with amiodarone 400 mg twice daily. Will plan to wean as per protocol. Continue with digoxin 250 mcg daily. Follow-up digoxin levels. Metoprolol increased to 25 mg twice daily. Target heart rate below 100. Monitor electrolytes. Appreciate cardiology recommendations. Continue full dose Lovenox 1 mg/kg body weight every 12 hourly for anticoagulation for stroke prevention. Increased risk of sudden , life-threatening arrhythmia, complication secondary to severely reduced ejection fraction, he verbalized understanding. Would want attempted resuscitation. Would be okay discussing LifeVest with cardiology. Discussed with him concern for fluctuation in renal function, although so far she has been (2) CHF (congestive heart failure): Echocardiogram done earlier in the admission showed severe cardiomyopathy with a EF 15%, grade 3 diastolic dysfunction, global LVH, moderately increased LA and RA size, mild aortic valve stenosis. Euvolemic today. Received Lasix yesterday. Start on oral Lasix 20 mg daily from tomorrow. Fluid restriction to less than 1500 cc. Strict input charting, daily weights. Continue with metoprolol 25 mg twice daily. Uptitrate as per goal blood pressure. Will add MELVI/ARB/Arni depending on BMP and blood pressure going forward. Will request cardiology to discuss further with patient regarding possible need of LifeVest on discharge. (3) Cardiomyopathy: Cannot rule out ischemic cardiomyopathy. Plan for further ACS workup once patient remains hemodynamically stable and euvolemic. Possible plan for cardiac angiogram on Sunday. Continue with full dose Lovenox as above. Check A1c, lipid panel. Plan Degenerative disc disease: Longstanding degenerative disc disease since 1999, with a history of two failed neck surgeries and a subsequent five-level back surgery, contributing to chronic pain, sleep disturbances, and functional limitations. - Maintain current pain management regimen. - Consider referral to a manufacturing engineer paint for further optimization of therapy. RLS: He reports severe RLS, and absolutely must have his ropinirole otherwise symptoms get out of control and are extremely difficult to manage. Resumed ropinirole. Full code Cardiac diet. Fluid restriction. Protonix for PUD prophylaxis Full dose Lovenox will be sufficient for DVT prophylaxis. PDMP PDMP Reviewed: Not Reviewed Attestations 2 Medical Necessity Statement*: Requires further hospitalization for management of difficult to control A-fib with RVR, severe systolic and diastolic congestive heart failure while ACS is ruled out Diagnoses Atrial fibrillation with RVR I48.91 CHF (congestive heart failure) I50.9 Cardiomyopathy I42.9
[2024-07-19 15:04] LABS: Estmated Average Glucose 114; Hemoglobin A1C 5.6 % (4.0-6.0)
[2024-07-19 15:15] LABS: Iron 26 ug/dL (59-158); Percent Saturation 10.7 % (20-50); Total Iron Binding Capacity 241 mcg/dl; Unsaturated Iron Binding 215 ug/dL (112-347)
[2024-07-19 15:29] LABS: Vitamin B12 489 pg/mL (232-1245)
[2024-07-19] MEDS: docusate sodium 100 mg Capsule 200 MG PO (20:03)
[2024-07-19] MEDS: metoprolol tartrate 25 mg Tablet PO (20:04)
[2024-07-20] VITALS (15 sets, daily range): BP systolic 97–118; BP diastolic 62–80; PULSE 76–96; RESP 16–30; TEMP 36.2–36.8; O2SAT 88–99; BMI 28.0
[2024-07-20] MEDS: oxyCODONE-APAP 5-325 mg Tablet 1 TAB PO ×3 (04:22→23:44)
[2024-07-20 04:44] LABS: Basophils % 0.2 %; Eosinophils # 0.1 10^3/uL (0.0-0.8); Eosinophils % 1.7 %; Hematocrit 43.2 % (37-53); Lymphocytes # 0.9 10^3/uL (0.8-4.8); Lymphocytes % 14.2 %; Mean Corpuscular HGB Conc 32.9 g/dL (30-55); Mean Corpuscular Hemoglobin 30.5 pg (27-33); Mean Corpuscular Volume 92.7 fl (82-101); Mean Platelet Volume 10.3 fL (7.4-10.4); Monocytes # 0.7 10^3/uL (0.2-0.9); Monocytes % 12.3 %; Neutrophils % 71.1 %; Nucleated Red Blood Cells % 0 %; Platelet Count 175 10^3/cmm (157-399); Red Blood Count 4.66 10^6/uL (3.85-5.65); Red Cell Distribution Width 12.7 % (12.1-15.1); White Blood Count 6.04 10^3/uL (3.29-11.43)
[2024-07-20 05:05] LABS: Chol HDL Ratio 3.58 mg/dL (1.0-5.00); Cholesterol 186 mg/dL (0-200); HDL Cholesterol 52 mg/dL (60-100); LDL Cholesterol Calculated 118 mg/dL (50-129); Triglycerides 81 mg/dL (0-150); VLDL Cholestrol Calculation 16 mg/dL (0-30)
[2024-07-20 05:24] LABS: Folate Level 12.8 ng/mL (4.5-32.2)
[2024-07-20 05:33] LABS: Alanine Aminotransferase 40 U/L (0-41); Albumin Level 3.5 g/dL (3.5-5.2); Alkaline Phosphatase 103 U/L (40-130); Anion Gap 15.5 (5-19); Aspartate Amino Transferase 34 U/L (0-40); Blood Urea Nitrogen 24 mg/dL (8-23); Calcium 9.2 mg/dL (8.5-10.5); Carbon Dioxide 32 mmol/L (22-29); Chloride 85 mmol/L (98-107); Creatinine Clr Calc Pharmacy 92.3287; Globulin 3.1 g/dL (1.3-4.6); Glucose 113 mg/dL (65-115); Osmolality Calculated 271 mOsm/kg (285-295); Potassium 4.5 mmol/L (3.5-5.1); Sodium 128 mmol/L (136-145); Total Bilirubin 0.4 mg/dL (0.15-1.2); Total Protein 6.6 g/dL (6.6-8.7)
[2024-07-20] MEDS: FUROsemide 20 mg Tablet PO (07:56)
[2024-07-20] MEDS: digoxin 125 mcg Tablet 250 MCG PO (08:52)
[2024-07-20] MEDS: gabapentin 300 mg Capsule PO ×3 (08:52→20:08)
[2024-07-20] MEDS: tamsulosin 0.4 mg Capsule PO ×2 (08:52→17:34)
[2024-07-20] MEDS: metoprolol tartrate 25 mg Tablet PO ×2 (08:52→20:08)
[2024-07-20] MEDS: polyethylene glycol 3350 Pkt 17 gm PO (08:52)
[2024-07-20] MEDS: ropinirole 2 mg Tablet 4 MG PO (08:53)
[2024-07-20] MEDS: amiodarone 200 mg Tablet 400 MG PO ×2 (08:53→17:35)
[2024-07-20 10:37] LABS: Digoxin 1.1 ng/mL (0.6-1.2)
[2024-07-20] MEDS: enoxaparin 100 mg/mL Syringe 90 MG SUBCUT (11:47)
--- NOTE | 2024-07-20 12:03 | PM.PN ---
Subjective Subjective: Patient is doing well. Heart rate is controlled. Vitals/I&O/Wt Last Vital Signs Temp 97.1 F L 07/20/24 10:48 Pulse 80 07/20/24 10:48 Resp 20 H 07/20/24 10:48 BP 112/77 07/20/24 10:48 Pulse Ox 92 07/20/24 10:48 O2 Del Method Nasal Cannula 07/20/24 08:04 O2 Flow Rate 1.5 07/20/24 08:04 FiO2 30 07/17/24 04:00 07/19/24 07/20/24 07/20/24 22:59 06:59 14:59 Intake Total 480 / 720 120 / 120 Output Total 960 / 960 350 / 1310 Balance -480 / -240 -350 / -590 120 / 120 Weight last 48 hrs Weight 190 lb Weight 191 lb Physical Exam Narrative: GENERAL: Patient is alert, awake and oriented x3. [] NECK: No jugular vein distension. [] HEENT: No cyanosis. No icterus. No pallor. [] HEART: Irregularly irregular LUNGS: Clear to auscultate bilaterally. [] CENTRAL NERVOUS SYSTEM: Grossly nonfocal. [] EXTREMITIES: Lower extremities with 1+ edema bilaterally. Urinary Catheter Management: Moralez: Cath Placed During This Visit: yes Reason for Continuing Indwelling Catheter: Accurate Measurement of Urinary Output in Critically Ill Patients Urinary Catheter Date of Insertion: 07/14/24 Urinary Catheter Time of Insertion: 17:00 Data 07/21/24 04:41 07/21/24 04:41 A&P Assessment and plan (1) Atrial fibrillation with RVR: (2) CHF (congestive heart failure): (3) Cardiomyopathy: (4) Essential hypertension: Plan Patient is stable from cardiac standpoint. Will continue with current medications. Continue Lovenox. Plan for coronary angiogram tomorrow. N.p.o. after midnight. Risks and benefits of procedure have been discussed Thank you for involving us in the care of this patient. Please call with questions PDMP PDMP Reviewed: Not Reviewed Attestations Medical Necessity Statement*: Care expected to cross 2 midnights. Coding Level of Care Code Acute Code for [facility] Diagnoses Atrial fibrillation with RVR I48.91 CHF (congestive heart failure) I50.9 Cardiomyopathy I42.9 Essential hypertension I10
[2024-07-20] MEDS: ondansetron 2 mg/ML SDV 2 mL 4 MG IVP (13:33)
[2024-07-20] MEDS: pantoprazole 40 mg SDV IVP (13:33)
--- NOTE | 2024-07-20 14:16 | P.PN_ITS ---
Subjective 2 Subjective: No events overnight. Has remained hemodynamically stable and afebrile. Heart rate stable. Sitting up in chair. On room air. States doing better. Vitals/I&O/Wt Last Vital Signs Temp 97.1 F L 07/20/24 10:48 Pulse 83 07/20/24 12:03 Resp 16 07/20/24 12:03 BP 118/70 07/20/24 12:03 Pulse Ox 88 L 07/20/24 12:03 O2 Del Method Nasal Cannula 07/20/24 08:04 O2 Flow Rate 1.5 07/20/24 08:04 FiO2 30 07/17/24 04:00 07/19/24 07/20/24 07/20/24 22:59 06:59 14:59 Intake Total 480 / 720 240 / 240 Output Total 960 / 960 350 / 1310 Balance -480 / -240 -350 / -590 240 / 240 Weight last 48 hrs Weight 86.183 kg Weight 86.636 kg Physical Exam 2 Const: COMMON NORMALS: patient oriented x3 and alert GENERAL APPEARANCE: c ooperative ORIENTATION/CONSCIOUSNESS: Yes awake HENMT: COMMON NORMALS: oropharynx normal Resp: COMMON NORMALS: normal respiratory effort and clear to auscultation bilaterally AUSCULTATION: clear to auscultation bilaterally Cardio: COMMON NORMALS: regular rhythm, S1 normal heart sound present, S2 normal heart sound present and No murmurs present (Cardio) RATE: tachycardic RHYTHM: regular rhythm and abnormal rhythm irregularly irregular HEART SOUNDS: S1 normal heart sound present and S2 normal heart sound present GI: COMMON NORMALS: Normal to inspection, nondistended, normoactive bowel sounds present, Soft to palpation and non-tender PALPATION: Yes Soft to palpation Extremity: COMMON NORMALS: no joint enlargement GENERAL: Yes edema (Trace) Neuro: COMMON NORMALS: patient oriented x3 and moves all extremities S ENSORIUM/ORIENTATION: Yes alert Skin: COMMON NORMALS: no rashes or lesions noted GENERAL SKIN EXAM: no rashes or lesions noted Urinary Catheter Management: Moralez: Cath Placed During This Visit: yes Reason for Continuing Indwelling Catheter: Accurate Measurement of Urinary Output in Critically Ill Patients Urinary Catheter Date of Insertion: 07/14/24 Urinary Catheter Time of Insertion: 17:00 Data 07/20/24 04:30 07/20/24 04:30 A&P Assessment and plan (1) Atrial fibrillation with RVR: Post cardioversion. Failed. Heart rate better controlled now. Continue with amiodarone 400 mg twice daily. Will plan to wean as per protocol. Continue with digoxin 250 mcg daily. Follow-up digoxin levels. Metoprolol increased to 25 mg twice daily. Target heart rate below 100. Monitor electrolytes. Appreciate cardiology recommendations. Continue full dose Lovenox 1 mg/kg body weight every 12 hourly for anticoagulation for stroke prevention. Increased risk of sudden , life-threatening arrhythmia, complication secondary to severely reduced ejection fraction, he verbalized understanding. Would want attempted resuscitation. Would be okay discussing LifeVest with cardiology. Discussed with him concern for fluctuation in renal function, although so far she has been (2) CHF (congestive heart failure): Echocardiogram done earlier in the admission showed severe cardiomyopathy with a EF 15%, grade 3 diastolic dysfunction, global LVH, moderately increased LA and RA size, mild aortic valve stenosis. Euvolemic today. Received Lasix yesterday. Start on oral Lasix 20 mg daily from tomorrow. Fluid restriction to less than 1500 cc. Strict input charting, daily weights. Continue with metoprolol 25 mg twice daily. Uptitrate as per goal blood pressure. Will add MELVI/ARB/Arni depending on BMP and blood pressure going forward. Will request cardiology to discuss further with patient regarding possible need of LifeVest on discharge. (3) Cardiomyopathy: Cannot rule out ischemic cardiomyopathy. Plan for further ACS workup once patient remains hemodynamically stable and euvolemic. Possible plan for cardiac angiogram on Sunday. Continue with full dose Lovenox as above. Check A1c, lipid panel. Plan Degenerative disc disease: Longstanding degenerative disc disease since 1999, with a history of two failed neck surgeries and a subsequent five-level back surgery, contributing to chronic pain, sleep disturbances, and functional limitations. - Maintain current pain management regimen. - Consider referral to a painter bottom for further optimization of therapy. RLS: He reports severe RLS, and absolutely must have his ropinirole otherwise symptoms get out of control and are extremely difficult to manage. Resumed ropinirole. Plan for the day: Continue with current dose of amiodarone and digoxin. Appreciate digoxin levels being normal. Heart rate stable. Patient euvolemic. Creatinine stable. Does have hyponatremia today. Could be in setting of diuretics. Repeat BMP in afternoon. Hold off on Lasix for now. Patient is euvolemic on room air. N.p.o. after midnight. Plan for cardiac angiogram in a.m. for further ACS workup. Appreciate cardiology recommendations. Continue full dose Lovenox for now. Full code Cardiac diet. Fluid restriction. Protonix for PUD prophylaxis Full dose Lovenox will be sufficient for DVT prophylaxis. PDMP PDMP Reviewed: Not Reviewed Attestations 2 Medical Necessity Statement*: Requires further hospitalization for management of difficult to control A-fib with RVR, severe systolic and diastolic congestive heart failure while ACS is ruled out Diagnoses Atrial fibrillation with RVR I48.91 CHF (congestive heart failure) I50.9 Cardiomyopathy I42.9
[2024-07-20 15:21] LABS: Anion Gap 11.3 (5-19); Blood Urea Nitrogen 21 mg/dL (8-23); Calcium 9.1 mg/dL (8.5-10.5); Carbon Dioxide 35 mmol/L (22-29); Chloride 88 mmol/L (98-107); Creatinine Clr Calc Pharmacy 92.1116; Glucose 104 mg/dL (65-115); Osmolality Calculated 273 mOsm/kg (285-295); Potassium 4.3 mmol/L (3.5-5.1); Sodium 130 mmol/L (136-145)
[2024-07-20] MEDS: docusate sodium 100 mg Capsule 200 MG PO (20:08)
[2024-07-21] VITALS (13 sets, daily range): BP systolic 95–113; BP diastolic 58–85; PULSE 62–80; RESP 14–24; TEMP 36.5–36.9; O2SAT 90–100
[2024-07-21 05:31] LABS: Basophils % 0.2 %; Eosinophils # 0.1 10^3/uL (0.0-0.8); Eosinophils % 1.7 %; Lymphocytes % 18.6 %; Mean Corpuscular HGB Conc 33.7 g/dL (30-55); Mean Corpuscular Hemoglobin 30.5 pg (27-33); Mean Corpuscular Volume 90.7 fl (82-101); Monocytes # 0.7 10^3/uL (0.2-0.9); Monocytes % 12.9 %; Neutrophils # 3.45 10^3/uL (1.8-7.7); Neutrophils % 66.2 %; Nucleated Red Blood Cells % 0 %; Platelet Count 199 10^3/cmm (157-399); Red Blood Count 4.52 10^6/uL (3.85-5.65); Red Cell Distribution Width 12.5 % (12.1-15.1); White Blood Count 5.21 10^3/uL (3.29-11.43)
[2024-07-21 05:51] LABS: Alanine Aminotransferase 37 U/L (0-41); Albumin Level 3.7 g/dL (3.5-5.2); Alkaline Phosphatase 100 U/L (40-130); Anion Gap 13.1 (5-19); Aspartate Amino Transferase 29 U/L (0-40); Blood Urea Nitrogen 25 mg/dL (8-23); Calcium 9.2 mg/dL (8.5-10.5); Carbon Dioxide 33 mmol/L (22-29); Chloride 86 mmol/L (98-107); Creatinine Clr Calc Pharmacy 93.5894; Globulin 2.3 g/dL (1.3-4.6); Glucose 118 mg/dL (65-115); Osmolality Calculated 269 mOsm/kg (285-295); Potassium 5.1 mmol/L (3.5-5.1); Sodium 127 mmol/L (136-145); Total Bilirubin 0.3 mg/dL (0.15-1.2)
[2024-07-21] MEDS: sodium chloride 0.9% 1,000 ML 50 ML IV (05:55)
--- NOTE | 2024-07-21 06:04 | XACV_ITS ---
Exam Room: [facility] Ht: 175 cm Wt: 89 kg BSA: 2.10 m2 Gender: Male : 1950 Any Known Allergies: Other Exam Priority: Routine Procedure(s): Procedure Description: Diagnostic procedure Procedure Description: Left Heart Catheterization Procedure Description: Coronary Angiography Diagnostic Cath Status: Elective Diagnostic Findings * Circumflex has mild luminal irregularities. * Right Coronary Artery has mild luminal irregularities. * Left Main has no disease. * Mid Left Anterior Descending: mild 40% stenosis, ALEX: 3 flow. * Coronary angiography shows right dominance. Conclusions 1. Non-obstructive coronary artery disease. 2. Non-ischemic cardiomyopathy. Recommendations * Aggressive guideline directed medical therapy for congestive heart failure. * Outpatient cardiology follow up in 2 weeks. Interventional RX Recommendation: medical therapy and/or counseling Diagnostic RX Recommendation: medical therapy and/or counseling Anticoagulation: Heparin Pressures Phase:Rest AO : 109 / 73 ( 87 ) @ 10:50:00 AM 109 / 68 ( 84 ) @ 10:55:00 AM 107 / 69 ( 84 ) @ 10:55:00 AM LV : 110 / 9 / 26 @ 10:55:00 AM 109 / 9 / 24 @ 10:55:00 AM Valves Phase:DefaultPhase AV : 0.0 @ 10:01:50 AM AV Mean Gradient: 0.0 @ 10:01:50 AM Clinical Evaluation EBL: 5mL-10mL Procedural Details Pre-Procedure Time Out. Identified patient by full name and date of as verbalized by the patient/guarantor. Does the consent match the physician's order: Yes. Accurate & Complete Informed Consent: Yes. Inpatient/Outpatient History & Physical on Chart: Yes. If H&P is completed, is and addenduem needed: No; If yes, is the addendum complete: N/A. Visualize and Verify Site with Patient/Guarantor: N/A. Relevant Radiology Images available: Yes. Pre-op teaching completed and patient verbalized understanding. The risks, benefits, and alternatives of sedation and/or procedure were discussed by physician. The patient agrees to continue. Procedure started. Current Diagnosis : Chest Pain. Physician arrived. [facility] Clinical Fraility Score: 4: Vulnerable. Clinical Nurse Reviewer Indications: Cardiomyopathy. Chest Pain Symptom Assessment: Typical Angina Symptoms. Correct patient, site and procedure confirmed by cath team. Current diagnosis: Chest Pain. PERRLA. Strong, equal hand pattern marking supervisor bilaterally. Lungs clear x 5 lobes. IV Site on Arrival: 20 gauge in the right forearm. IV Fluids: 0.9% NaCl at KVO. 0 mL infused prior to slab stripper. Oxygen started at 2liters/min via nasal canula. right groin was prepped with chloroprep then draped in the usual sterile fashion. right radial was prepped with chloroprep then draped in the usual sterile fashion. Baseline sample Acquired. HR: 80 BPM. Physician scrubbed in. Immediate Pre-Procedure Time Out. Correct Patient: Yes; Correct Procedure: Yes; Correct Site: Yes; Correct Patient Position: Yes; Correct Supplies: Yes; Dried Flammable Prep: Yes; Blood Products Available: No;. Lidocaine 1% infiltrated to the right radial. Arterial access obtained. A 5 congolese TIG catheter in over wire. Multiple views taken of left coronary artery. Catheter redirected to the RCA. Multiple views taken of right coronary artery. EDP Sample taken: LV 110/9,26; HR: 72 BPM; SpO2: 96%. Pullback taken: LV 109/9,24; AO 109/68(84); Mean: 0mmHg, Peak to Peak: 0mmHg, SEP: 17sec/min; HR: 73 BPM; SpO2: 97%. Catheter removed over the exchange wire. A TR Band was successful obtaining hemostatsis at the Right Radial artery insertion site. Post Procedure: Pulses reassessed and unchanged. PERRLA. Strong, equal hand pattern marking supervisor bilaterally. No VTE prophylaxis required. Medication's Wasted: Lidocaine 1% = 18 mL. Medication's Wasted: Nitro = 49.9 mcg. Medication's Wasted: Heparin = 1000 units. Medication's Wasted: Other = Fentanyl 50mcg Versed 1 mg. Total IV fluids: 25 mL. Post-op diagnosis: Non-obstructive CAD, Cardiomyopathy. Complications: None. Estimated blood loss: 5mL-10mL. Responsiveness - Normal response to verbal stimuli; alert and oriented, PERRLA. Airway - Unaffected, no intervention required; spontaneous ventilation. Circulation: W/N/L, pulses unchanged. Nausea/Vomiting: No. Procedure completed. Patient transferred by bed to ICU. Vital chart was stopped. Access Site Site: Right Radial artery Sheath Size: 6 Fr Hemostasis Method: TR Band Hemostasis Success: Successful Procedure Medications Start: 9:41 AM Stop: 9:41 AM Medication: Versed Amount: 1 mg Route: I.V. Start: 9:41 AM Stop: 9:41 AM Medication: Fentanyl Amount: 50 mcg Route: I.V. Start: 9:47 AM Stop: 9:47 AM Medication: Nitrogylcerin Amount: 100 mcg Route: I.A. Start: 9:50 AM Stop: 9:50 AM Medication: Heparin Amount: 5000 units Route: I.V. I, the attending physician, have reviewed and verified all procedure medications. Yes, all medications given per verbal order History/Risk Factors Hypertension: No Dyslipidemia: No Peripheral Arterial Disease (PAD): No Myocardial Infarction (NE): No Obesity: No Renal Disease: No Tobacco Use: Former Prior Interventions PCI: No CABG: No Valve Surgery: No Report Signatures Finalized by Charles Malik MD on 07/21/2024 12:02 PM
[2024-07-21 06:07] LABS: Magnesium 1.9 mg/dL (1.7-2.3)
[2024-07-21] MEDS: gabapentin 300 mg Capsule PO ×3 (07:59→21:11)
[2024-07-21] MEDS: oxyCODONE-APAP 5-325 mg Tablet 1 TAB PO (07:59)
[2024-07-21] MEDS: tamsulosin 0.4 mg Capsule PO ×2 (07:59→18:04)
[2024-07-21] MEDS: ropinirole 2 mg Tablet 4 MG PO (07:59)
[2024-07-21] MEDS: metoprolol tartrate 25 mg Tablet PO ×2 (07:59→21:11)
[2024-07-21] MEDS: amiodarone 200 mg Tablet 400 MG PO ×2 (08:00→18:04)
[2024-07-21] MEDS: diphenhydrAMINE 50 mg Capsule PO (08:01)
--- NOTE | 2024-07-21 09:26 | PC.NURSE ---
Patient left ICU for laborer livestock at 09.
--- NOTE | 2024-07-21 09:33 | P.PN_ITS ---
<Statement entered by Charles Malik M.D - 07/21/24 12:35> Patient was cared for in conjunction with an advanced practice practitioner.? I reviewed the chart and all pertinent data including imaging, telemetry, and laboratory results.? I discussed the patient in detail with the advanced practice practitioner.? Please see? their note for complete progress note, testing results and agreed upon plan of care for the patient. Patient had coronary angiogram demonstrating non-ischemic cardiomyopathy. Start eliquis 5 mg BID. Continue diuresis. LVEDP is high. Heart rate is controlled. Continue digoxin, amiodarone and metoprolol Thank you for involving us with care of this patient. Please call with questions. Subjective 2 Subjective: No chest pain or shortness of breath overnight. Plan for coronary angiogram today. He appears euvolemic, creatinine 0.7. Good rate control. Vitals/I&O/Wt Last Vital Signs Temp 98.4 F 07/21/24 08:00 Pulse 78 07/21/24 08:17 Resp 16 07/21/24 08:17 BP 109/85 07/21/24 08:00 Pulse Ox 97 07/21/24 08:17 O2 Del Method Nasal Cannula 07/21/24 08:17 O2 Flow Rate 2 07/21/24 08:17 FiO2 30 07/17/24 04:00 07/20/24 07/21/24 07/21/24 22:59 06:59 14:59 Intake Total 690 / 930 Output Total 1550 / 1700 150 / 1700 Balance -860 / -770 -150 / -770 Weight last 48 hrs Weight 196 lb 12.8 oz Weight 190 lb Physical Exam 2 Const: COMMON NORMALS: no acute distress and patient oriented x3 Chest: COMMONS NORMALS: normal inspection of the chest and normal palpation of entire chest wall CHEST: Yes Symmetrical chest wall rise Resp: COMMON NORMALS: normal respiratory effort, No retractions, No use of accessory muscles and clear to auscultation bilaterally EFFORT & INSPECTION: Yes symmetric chest movement AUSCULTATION: clear to auscultation bilaterally Cardio: COMMON NORMALS: S1 normal heart sound present, S2 normal heart sound present, No gallops present (Cardio), No clicks present (Cardio), No murmurs present (Cardio) and No rub (Cardio) RHYTHM: abnormal rhythm irregularly irregular HEART SOUNDS: S1 normal heart sound present and S2 normal heart sound present PERIPHERAL PULSES: radial pulses present, posterior tibial pulses present and dorsalis pedis present Neuro: COMMON NORMALS: patient oriented x3 and moves all extremities Psych: COMMON NORMALS: mental status grossly normal and cooperative Urinary Catheter Management: Moralez: Cath Placed During This Visit: yes Reason for Continuing Indwelling Catheter: Accurate Measurement of Urinary Output in Critically Ill Patients Urinary Catheter Date of Insertion: 07/14/24 Urinary Catheter Time of Insertion: 17:00 Data 07/21/24 04:41 07/21/24 04:41 A&P Assessment and plan (1) Atrial fibrillation: (2) CHF (congestive heart failure): (3) Cardiomyopathy: (4) Essential hypertension: Plan Continue n.p.o. until coronary angiogram today. Continue Lovenox. He has good rate control with metoprolol, digoxin and amiodarone. PDMP PDMP Reviewed: Not Reviewed Attestations 2 Medical Necessity Statement*: Care expected to cross 2 midnights. Coding Level of Care Code Acute Code for [facility] Diagnoses Atrial fibrillation I48.91 CHF (congestive heart failure) I50.9 Cardiomyopathy I42.9 Essential hypertension I10
--- NOTE | 2024-07-21 09:38 | W.PM.OPSUD ---
Surgery/Procedure H&P Update DATE OF PROCEDURE: July 21, 2024 DATE H&P PERFORMED: 07/14/24 H&P UPDATE INFORMATION: I have reviewed H&P completed within last 30 days, I have examined patient prior to procedure and Changes to prior documentation as noted here CHANGES TO PREVIOUS DOCUMENTATION: Patient echo showed severely reduced LV function. PREOP DIAGNOSIS: LV dysfunction PRIMARY INDICATION FOR PROCEDURE: LV dysfunction PLANNED PROCEDURE: Left heart cath with possible percutaneous coronary intervention PATIENT REASSESSED PRIOR TO SEDATION, WITH NO CHANGE NOTED: Yes PHYSICAL EXAM: alert, oriented x 3, clear to auscultation bilaterally and regular rate & rhythm AIRWAY EVAL/ANESTHESIA PLAN: normal airway, ASA III, Local Anesthesia, Risks, benefits & alternatives of sedation and/or procedure discussed and Patient agrees to continue as planned ADDITIONAL INFORMATION: Moderate sedation
--- NOTE | 2024-07-21 10:01 | PM.PROC ---
Procedure Note: Date of procedure: 07/21/24 Pre-procedure diagnosis: LV dysfunction Post-procedure diagnosis: other (Non ischemic cardiomyopathy/ Non-obstructive coronary artery disease) Procedure: Patent coronary arteries. Nonischemic cardiomyopathy. Guideline directed heart failure therapy. Continue anticoagulation Performing Provider: Charles Malik Estimated blood loss (mL): 10 Complications: None Condition: stable Disposition: ICU Coding Level of Care Code Acute Code for [facility]
--- NOTE | 2024-07-21 10:27 | PC.NURSE ---
Patient returned from photo lab specialist with a right radial TR-band at 1015.
--- NOTE | 2024-07-21 11:43 | PC.NURSE ---
Shaye Willis is updated on patients heart rate since returning from clinical laboratory service teacher. Heartrate in the 60's. Shaye consulted with Dr Malik and ordered to hold digoxing [address] Malik did also order Eliquis for anticoagulation to start 2 hours after TR-band is removed.
[2024-07-21] MEDS: pantoprazole 40 mg SDV IVP (15:41)
--- NOTE | 2024-07-21 16:17 | PM.PN ---
Subjective Subjective: s/p heart cath patent coronary arteries Vitals/I&O/Wt Last Vital Signs Temp 97.7 F 07/21/24 10:25 Pulse 62 07/21/24 11:46 Resp 20 H 07/21/24 11:05 BP 98/73 07/21/24 11:05 Pulse Ox 95 07/21/24 11:05 O2 Del Method Nasal Cannula 07/21/24 11:05 O2 Flow Rate 2 07/21/24 11:05 FiO2 30 07/17/24 04:00 07/21/24 07/21/24 07/21/24 06:59 14:59 22:59 Intake Total 240 / 240 Output Total 150 / 1700 Balance -150 / -770 240 / 240 Weight last 48 hrs Weight 196 lb 12.8 oz Weight 190 lb Physical Exam Const: COMMON NORMALS: patient oriented x3 and alert GENERAL APPEARANCE: cooperative ORIENTATION/CONSCIOUSNESS: Yes awake HENMT: COMMON NORMALS: oropharynx normal Resp: COMMON NORMALS: normal respiratory effort and clear to auscultation bilaterally AUSCULTATION: clear to auscultation bilaterally Cardio: COMMON NORMALS: regular rhythm, S1 normal heart sound present, S2 normal heart sound present and No murmurs present (Cardio) RATE: tachycardic RHYTHM: regular rhythm and abnormal rhythm irregularly irregular HEART SOUNDS: S1 normal heart sound present and S2 normal heart sound present GI: COMMON NORMALS: Normal to inspection, nondistended, normoactive bowel sounds present, Soft to palpation and non-tender PALPATION: Yes Soft to palpation Extremity: COMMON NORMALS: no joint enlargement NARRATIVE EXTREMITY EXAM: right wrist cath site clean GENERAL: Yes edema (Trace) Neuro: COMMON NORMALS: patient oriented x3 and moves all extremities SENSORIUM/ORIENTATION: Yes alert Skin: COMMON NORMALS: no rashes or lesions noted GENERAL SKIN EXAM: no rashes or lesions noted Urinary Catheter Management: Moralez: Cath Placed During This Visit: yes Reason for Continuing Indwelling Catheter: Accurate Measurement of Urinary Output in Critically Ill Patients Urinary Catheter Date of Insertion: 07/14/24 Urinary Catheter Time of Insertion: 17:00 Data 07/21/24 04:41 07/21/24 04:41 A&P Assessment and plan (1) Atrial fibrillation: (2) CHF (congestive heart failure): (3) Essential hypertension: Plan #Afib with RVR #CHF, systolic dysfunction #cardiomyopathy --s/p heart cath --heart rate controlled --continue oral amiodarone, digoxin, metoprolol -- Cardiac diet, Lasix were given previously #degenerative disc disease #RLS -- Chronic medications continue continue Requip, as needed analgesics Dispo: Anticipate discharge in next 24 hours PDMP PDMP Reviewed: Not Reviewed Attestations Medical Necessity Statement*: afib, chf management Coding Level of Care Code Acute Code for [facility] Diagnoses Atrial fibrillation I48.91 CHF (congestive heart failure) I50.9 Essential hypertension I10
--- NOTE | 2024-07-21 18:40 | PC.NURSE ---
Patient's right radial TR-Band; air is slowly removed 2 ml's at a time. No hematoma is noted. A dressing of 2x2 and tegaderm is applied. Patient tolerated well. Patient is reeducated not to use his right hand/wrist for the first 24 hours. Patient states understanding.
[2024-07-21] MEDS: docusate sodium 100 mg Capsule 200 MG PO (21:11)
[2024-07-21] MEDS: apixaban 5 mg Tablet PO (21:11)
[2024-07-22] VITALS (8 sets, daily range): BP systolic 87–113; BP diastolic 58–81; PULSE 69–89; RESP 14–22; TEMP 36.4–37; O2SAT 91–98
[2024-07-22 05:36] LABS: Basophils % 0.2 %; Eosinophils # 0.1 10^3/uL (0.0-0.8); Eosinophils % 2.4 %; Hematocrit 42.9 % (37-53); Lymphocytes # 1.1 10^3/uL (0.8-4.8); Lymphocytes % 22.2 %; Mean Corpuscular HGB Conc 32.9 g/dL (30-55); Mean Corpuscular Hemoglobin 30.1 pg (27-33); Mean Corpuscular Volume 91.7 fl (82-101); Mean Platelet Volume 10.2 fL (7.4-10.4); Monocytes # 0.6 10^3/uL (0.2-0.9); Monocytes % 12.4 %; Neutrophils # 3.08 10^3/uL (1.8-7.7); Neutrophils % 62.6 %; Nucleated Red Blood Cells % 0 %; Platelet Count 243 10^3/cmm (157-399); Red Blood Count 4.68 10^6/uL (3.85-5.65); Red Cell Distribution Width 12.6 % (12.1-15.1); White Blood Count 4.92 10^3/uL (3.29-11.43)
[2024-07-22 06:00] LABS: Anion Gap 11.8 (5-19); Blood Urea Nitrogen 19 mg/dL (8-23); Carbon Dioxide 36 mmol/L (22-29); Chloride 87 mmol/L (98-107); Creatinine Clr Calc Pharmacy 87.7646; Glucose 92 mg/dL (65-115); Osmolality Calculated 272 mOsm/kg (285-295); Potassium 4.8 mmol/L (3.5-5.1); Sodium 130 mmol/L (136-145)
[2024-07-22] MEDS: tamsulosin 0.4 mg Capsule PO ×2 (09:22→17:48)
[2024-07-22] MEDS: ropinirole 2 mg Tablet 4 MG PO (09:22)
[2024-07-22] MEDS: gabapentin 300 mg Capsule PO ×2 (09:22→17:48)
[2024-07-22] MEDS: metoprolol tartrate 25 mg Tablet PO (09:23)
[2024-07-22] MEDS: polyethylene glycol 3350 Pkt 17 gm PO (09:23)
[2024-07-22] MEDS: digoxin 125 mcg Tablet 250 MCG PO (09:23)
[2024-07-22] MEDS: amiodarone 200 mg Tablet 400 MG PO ×2 (09:23→17:49)
[2024-07-22] MEDS: apixaban 5 mg Tablet PO (09:27)
--- NOTE | 2024-07-22 09:35 | P.PN_ITS ---
<Statement entered by Axel Barr MD - 07/22/24 21:18> Patient was evaluated and cared for in conjunction with an advanced practice practitioner. I personally examined the patient and reviewed the chart and all pertinent data including imaging, telemetry, and laboratory results. I discussed the patient in detail with the advanced practice practitioner. Please see their note for complete H&P testing result and agreed upon plan of care for the patient. Subjective 2 Subjective: He had coronary angiogram yesterday showing nonischemic cardiomyopathy. Plan for starting low-dose Entresto, switching beta-germán to metoprolol succinate. Will order LifeVest today, discussed with patient in detail. Patient expressed desire to go home today. He is euvolemic with good ventricular rate control. Blood pressure is on the soft side, will be cautious in dosing for heart failure therapy. Vitals/I&O/Wt Last Vital Signs Temp 97.7 F 07/22/24 08:52 Pulse 89 07/22/24 09:23 Resp 22 H 07/22/24 08:52 BP 113/81 07/22/24 08:52 Pulse Ox 97 07/22/24 08:52 O2 Del Method Nasal Cannula 07/22/24 04:00 O2 Flow Rate 2 07/21/24 11:05 FiO2 30 07/17/24 04:00 07/21/24 07/22/24 07/22/24 22:59 06:59 14:59 Intake Total 840 / 2780 1700 / 2780 Output Total 900 / 1650 750 / 1650 Balance -60 / 1130 950 / 1130 Weight last 48 hrs Weight 170 lb Weight 169 lb 9.6 oz Weight 196 lb 12.8 oz Physical Exam 2 Const: COMMON NORMALS: no acute distress and patient oriented x3 Chest: COMMONS NORMALS: normal inspection of the chest and normal palpation of entire chest wall CHEST: Yes Symmetrical chest wall rise Resp: COMMON NORMALS: normal respiratory effort, No retractions, No use of accessory muscles and clear to auscultation bilaterally EFFORT & INSPECTION: Yes symmetric chest movement AUSCULTATION: clear to auscultation bilaterally Cardio: COMMON NORMALS: S1 normal heart sound present, S2 normal heart sound present, No gallops present (Cardio), No clicks present (Cardio), No murmurs present (Cardio) and No rub (Cardio) RHYTHM: abnormal rhythm irregularly irregular HEART SOUNDS: S1 normal heart sound present and S2 normal heart sound present PERIPHERAL PULSES: radial pulses present, posterior tibial pulses present and dorsalis pedis present Neuro: COMMON NORMALS: patient oriented x3 and moves all extremities Psych: COMMON NORMALS: mental status grossly normal and cooperative Urinary Catheter Management: Moralez: Cath Placed During This Visit: yes Reason for Continuing Indwelling Catheter: Accurate Measurement of Urinary Output in Critically Ill Patients Urinary Catheter Date of Insertion: 07/14/24 Urinary Catheter Time of Insertion: 17:00 Data 07/22/24 04:26 07/22/24 04:26 A&P Assessment and plan (1) Atrial fibrillation: (2) Systolic CHF: (3) Cardiomyopathy: (4) Essential hypertension: Plan Will fit for LifeVest today. Continue amiodarone with taper. Plan to switch metoprolol tartrate to metoprolol succinate 12.5 mg daily, keep digoxin 250 mcg daily to ensure rate control. Start Entresto 24/26 mg half tablet (1/2) twice a day, increase to 1 tablet twice a day as blood pressure allows. Continue anticoagulation with Eliquis. Right radial cath site looks good, no hematoma or oozing. Depending on blood pressure response to medications he may go home today if okay with hospitalist service. After he has been on amiodarone and anticoagulation for another 2-3 weeks, will attempt to cardiovert as an outpatient as restoring sinus rhythm would likely improve his LV function. PDMP PDMP Reviewed: Not Reviewed Attestations 2 Medical Necessity Statement*: Optimizing medical management of heart failure Coding Level of Care Code Acute Code for [facility] Diagnoses Atrial fibrillation I48.91 Systolic CHF I50.20 Cardiomyopathy I42.9 Essential hypertension I10
[2024-07-22] MEDS: sacubitril/valsartan 24-26 mg Tablet 0.5 EACH PO ×2 (11:16→17:49)
--- NOTE | 2024-07-22 14:04 | P.DS_ITS ---
Discharge Providers Date of Admission: 07/14/24 11:03 Date of Discharge: July 22, 2024 Attending Provider at Admission: Keyon Song Attending Provider at Discharge: Darian Camacho MD Primary Care Provider: Antonio Villalba MD Diagnoses at Discharge Discharge Diagnosis (1) Atrial fibrillation: Status: Acute (2) Systolic CHF: Status: Acute (3) Cardiomyopathy: Status: Acute (4) Essential hypertension: Status: Acute Reason for Visit Reason for Visit: sob, afib Hospital Course Hospital Course The patient with a history of atrial fibrillation presents with recurrent palpitations and episodes of a very rapid heart rate ? initially reported in the 180s to 200s ? accompanied by shortness of breath and a sensation of feeling hot and sweaty despite no measured fever. The symptoms were severe this morning, prompting an ER visit where the patient received IV Cardizem (diltiazem) administered as a push followed by a drip and subsequent addition of amiodarone. The patient recounts a previous ablation performed at [facility] in [place] for atrial fibrillation and notes having been off their blood thinner for approximately three months after discontinuing it due to gastrointestinal adverse effects (stomach pain, heartburn) and a history of hemorrhagic ulcers in his youth. He had a recent EGD several months ago. In addition, the patient reports longstanding debilitating pain from degenerative disc disease, including a history of two unsuccessful neck surgeries and a five-level back surgery, which has impaired sleep and daily comfort. There is mention of recent feelings of sweating, fatigue, and a general sense of weakness, with bedside US showing a severely reduced ejection fraction. Hospital course: #Afib with RVR #CHF, systolic dysfunction #cardiomyopathy --s/p heart cath --heart rate controlled --continue oral amiodarone, digoxin, metoprolol -- Cardiac diet, Lasix were given previously -- LifeVest was placed. Outpatient cardiology follow-up. See discharge med rec. #degenerative disc disease #RLS -- Chronic medications continue continue Requip, as needed analgesics Physical Exam Const: COMMON NORMALS: patient oriented x3 and alert GENERAL APPEARANCE: cooperative ORIENTATION/CONSCIOUSNESS: Yes awake HENMT: COMMON NORMALS: oropharynx normal Resp: COMMON NORMALS: normal respiratory effort and clear to auscultation bilaterally AUSCULTATION: clear to auscultation bilaterally Cardio: COMMON NORMALS: regular rhythm, S1 normal heart sound present, S2 normal heart sound present and No murmurs present (Cardio) RHYTHM: regular rhythm and abnormal rhythm irregularly irregular HEART SOUNDS: S1 normal heart sound present and S2 normal heart sound present GI: COMMON NORMALS: Normal to inspection, nondistended, normoactive bowel sounds present, Soft to palpation and non-tender PALPATION: Yes Soft to palpation Extremity: COMMON NORMALS: no joint enlargement NARRATIVE EXTREMITY EXAM: right wrist cath site clean GENERAL: Yes edema (Trace) Neuro: COMMON NORMALS: patient oriented x3 and moves all extremities SENSORIUM/ORIENTATION: Yes alert Skin: COMMON NORMALS: no rashes or lesions noted GENERAL SKIN EXAM: no rashes or lesions noted Urinary Catheter Management: Moralez: Cath Placed During This Visit: yes Reason for Continuing Indwelling Catheter: Accurate Measurement of Urinary Output in Critically Ill Patients Urinary Catheter Date of Insertion: 07/14/24 Urinary Catheter Time of Insertion: 17:00 Discharge Data Studies Completed and Pending Completed Studies During Hospitalization Category Date Time Status [employer] request for service Routine Exams 07/21/24 06:04 Completed XR chest 1V portable [id number] Urgent Exams 07/14/24 09:28 Completed CV. echo complete* [id number] Stat Ultrasound 07/14/24 10:13 Completed CV. echo transesophageal [id number] Routine Ultrasound 07/17/24 11:37 Completed Radiology Impressions Chest X-Ray 07/14/24 09:28 IMPRESSION: 1. Bibasilar opacities and interstitial prominence which may be secondary to infectious/inflammatory process and/or pulmonary edema with atelectasis. 2. Mild cardiomegaly. 3. Remote and age-indeterminate right-sided rib fractures are again demonstrated as above. Laboratory Results WBC 4.92 10^3/uL (3.29-11.43) 07/22/24 04:26 RBC 4.68 10^6/uL (3.85-5.65) 07/22/24 04:26 Hgb 14.10 g/dL (11.27-16.99) 07/22/24 04:26 Hct 42.9 % (37-53) 07/22/24 04:26 MCV 91.7 fl (82-101) 07/22/24 04:26 MCH 30.1 pg (27-33) 07/22/24 04:26 MCHC 32.9 g/dL (30-55) 07/22/24 04: RDW 12.6 % (12.1-15.1) 07/22/24 04:26 Plt Count 243 10^3/cmm (157-399) 07/22/24 04:26 MPV 10.2 fL (7.4-10.4) 07/22/24 04:26 Neut % (Auto) 62.6 % 07/22/24 04:26 Lymph % (Auto) 22.2 % 07/22/24 04:26 [place] % (Auto) 12.4 % 07/22/24 04:26 Eos % (Auto) 2.4 % 07/22/24 04:26 Baso % (Auto) 0.2 % 07/22/24 04:26 Neut # (Auto) 3.08 10^3/uL (1.8-7.7) 07/22/24 04:26 Lymph # (Auto) 1.1 10^3/uL (0.8-4.8) 07/22/24 04:26 [place] # (Auto) 0.6 10^3/uL (0.2-0.9) 07/22/24 04:26 Eos # (Auto) 0.1 10^3/uL (0.0-0.8) 07/22/24 04:26 Baso # (Auto) 0.0 10^3/uL (0.0-0.1) 07/22/24 04:26 Nucleated RBC % (auto) 0 % 07/22/24 04: Nucleated RBCs # 0.0 /100WBC 07/22/24 04:26 Sodium 130 mmol/L (136-145) L 07/22/24 04:26 Potassium 4.8 mmol/L (3.5-5.1) 07/22/24 04:26 Chloride 87 mmol/L (98-107) L 07/22/24 04:26 Carbon Dioxide 36 mmol/L (22-29) H 07/22/24 04:26 Anion Gap 11.8 (5-19) 07/22/24 04:26 BUN 19 mg/dL (8-23) 07/22/24 04:26 Creatinine 0.7 mg/dL (0.7-1.2) 07/22/24 04:26 GFR Calculation Not Reportable 07/22/24 04:26 Glucose 92 mg/dL (65-115) 07/22/24 04:26 Estimat Average Glucose 114 07/19/24 14:23 Hemoglobin A1c 5.6 % (4.0-6.0) 07/19/24 14:23 Calculated Osmolality 272 mOsm/kg (285-295) L 07/22/24 04:26 Calcium 9.0 mg/dL (8.5-10.5) 07/22/24 04:26 Magnesium 2.0 mg/dL (1.7-2.3) 07/22/24 04:26 Iron 26 ug/dL (59-158) L 07/19/24 14:23 TIBC 241 mcg/dl 07/19/24 14:23 % Saturation 10.7 % (20-50) L 07/19/24 14:23 Unsat Iron Binding 215 ug/dL (112-347) 07/19/24 14:23 Total Bilirubin 0.3 mg/dL (0.15-1.2) 07/21/24 04:41 AST 29 U/L (0-40) 07/21/24 04:41 ALT 37 U/L (0-41) 07/21/24 04:41 Alkaline Phosphatase 100 U/L (40-130) 07/21/24 04:41 Troponin T Baseline 62 ng/L (0-15) H 07/14/24 09:42 Troponin T 120 Minute 57.94 ng/L (0-15) H 07/14/24 11:57 Delta Troponin T -4.06 ABS# (0-10) L 07/14/24 11:57 Troponin T Hi Sens 6Hr 55.89 ng/L (0-15) H 07/14/24 15:43 Troponin T Hi Sens 6Hr Delta -6.11 ng/L (0-12) L 07/14/24 15:43 NT-Pro-B Natriuret Pep 7137 pg/mL (0-125) H 07/14/24 09:42 Total Protein 6.0 g/dL (6.6-8.7) L 07/21/24 04:41 Albumin 3.7 g/dL (3.5-5.2) 07/21/24 04:41 Globulin 2.3 g/dL (1.3-4.6) 07/21/24 04:41 Triglycerides 81 mg/dL (0-150) 07/20/24 04:30 Cholesterol 186 mg/dL (0-200) 07/20/24 04:30 LDL Cholesterol, Calc 118 mg/dL (50-129) 07/20/24 04:30 Total VLDL Cholesterol 16 mg/dL (0-30) 07/20/24 04:30 HDL Cholesterol 52 mg/dL (60-100) L 07/20/24 04:30 Cholesterol/HDL Ratio 3.58 mg/dL (1.0-5.00) 07/20/24 04:30 Vitamin B12 489 pg/mL (232-1245) 07/19/24 14:23 Folate 12.8 ng/mL (4.5-32.2) 07/20/24 04: TSH 2.57 uIU/mL (0.27-4.20) 07/14/24 09:42 Urine Color Yellow (Yellow) 07/14/24 12:29 Urine Appearance Clear (CLEAR) 07/14/24 12:29 Urine pH 5.5 (5-7) 07/14/24 12:29 Ur Specific [place] 1.012 (1.005-1.030) 07/14/24 12:29 Urine Protein Trace (Negative) A 07/14/24 12:29 Urine Glucose (UA) Negative (Normal) 07/14/24 12:29 Urine Ketones Negative (Negative) 07/14/24 12:29 Urine Blood Negative (Negative) 07/14/24 12:29 Urine Nitrate Negative (Negative) 07/14/24 12:29 Urine Bilirubin Negative (Negative) 07/14/24 12:29 Urine Urobilinogen 0.2 mg/dL (Negative) 07/14/24 12:29 Ur Leukocyte Esterase Negative (Negative) 07/14/24 12:29 Urine RBC 0-2 /hpf (0-2) 07/14/24 12:29 Urine WBC 0-5 /hpf (0-5) 07/14/24 12:29 Ur Squamous Epith Cells 0-5 /hpf (0-5) 07/14/24 12:29 Amorphous Sediment Not Reportable 07/14/24 12:29 Urine Bacteria None seen /hpf (NONE) 07/14/24 12:29 Hyaline Casts 0.40 /lpf 07/14/24 12:29 Digoxin 1.1 ng/mL (0.6-1.2) 07/20/24 10:13 Vitals Last Vital Signs Temp 98.2 F 07/22/24 12:06 Pulse 76 07/22/24 12:06 Resp 17 07/22/24 12:06 BP 97/68 07/22/24 12:06 Pulse Ox 98 07/22/24 12:06 O2 Del Method Nasal Cannula 07/22/24 04:00 O2 Flow Rate 2 07/21/24 11:05 FiO2 30 07/17/24 04:00 Discharge Plan Discharge Patient Disposition: Xfer SNF Condition: Stable Prescriptions: New digoxin 125 mcg (0.125 mg) Tablet 250 mcg PO DAILY Qty: 30 0RF gabapentin 300 mg Capsule 300 mg PO BID Qty: 30 0RF amiodarone [Pacerone] 200 mg Tablet 200 mg PO BID 60 Days Qty: 120 0RF Eliquis 5 mg Tablet 5 mg PO BID@0900,2100 Qty: 60 0RF metoprolol succinate 25 mg Tablet Extended Release 24 Hr 12.5 mg PO DAILY Qty: 30 0RF Entresto 24-26 mg Tablet 0.5 tab PO BID 30 Days Qty: 30 0RF Continued omeprazole 20 mg capsule,delayed release(DR/EC) See Rx Instructions .ROUTE .COMPLEX Qty: 180 3RF Dose Instruction: TAKE 1 CAPSULE BY MOUTH TWICE A DAY Rx Instructions: TAKE 1 CAPSULE BY MOUTH TWICE A DAY ropinirole 4 mg tablet 4 mg PO DAILY Rx Instructions: TAKE 1 TABLET BY MOUTH EVERY DAY atorvastatin 40 mg tablet 40 mg PO DAILY tamsulosin 0.4 mg capsule 0.4 mg PO BID fluticasone furoate-vilanterol [Breo Ellipta] 100-25 mcg/dose blister with device 1 ea INHALATION DAILY Discontinued nebivolol 5 mg tablet 5 mg PO DAILY Discharge Orders: Discharge Order (Routine); Ordered 07/22/24 Ordered By: Darian Camacho Referrals: [facility] Home Care ([facility]) [Outside] Antonio Villalba MD [Primary Care Provider, Internal Medicine] Discharge Diet: Cardiac Discharge Activity: Resume usual activity Patient Instructions: CHF Stoplight, Opioid Safety, Post Angiogram Home Care Instructions Discharge Attestations Time Spent in Discharge Care*: less than 30 min Quality Metrics Clinical Quality Measures [ No reported AMI, CVA or VTE this stay] Coding Level of Care Code 76879 Diagnoses Atrial fibrillation I48.91 Systolic CHF I50.20 Cardiomyopathy I42.9 Essential hypertension I10 Time Spent (min) 30
[2024-07-22] MEDS: pantoprazole 40 mg SDV IVP (17:48)
== END 2024-07-22 18:41 | disposition home health service (06) | DRG 286 ==
LOC: ER 09:51 → ICU 11:03 → CSU 07-21 14:55
PROVIDERS: Internal Medicine; Nurse Practitioner Family; Student in an Organized Health Care Education/Training Program; Admitting Provider Internal Medicine; Emergency Provider Physician Assistant; PCP Internal Medicine; Visit Provider Internal Medicine
PROC: 4A023N7 Measurement of Cardiac Sampling and Pressure, Left Heart, Percutaneous Approach (ICD-10-PCS; principal; 2024-07-21 10:00)
DX: I48.91 Unspecified atrial fibrillation (principal); I50.23 Acute on chronic systolic (congestive) heart failure; I42.8 Other cardiomyopathies; I11.0 Hypertensive heart disease with heart failure; G25.81 Restless legs syndrome; E78.5 Hyperlipidemia, unspecified; Z85.46 Personal history of malignant neoplasm of prostate; Z87.891 Personal history of nicotine dependence; G89.29 Other chronic pain; M51.369 Other intervertebral disc degeneration, lumbar region without mention of lumbar back pain or lower extremity pain
CPT/HCPCS: 12345; 36415; 51702; 71045; 80048; 80053; 80061; 80162; 81001; 82607; 82746; 83036; 83540; 83550; 83735; 83880; 84443; 84484; 85025; 93005; 93306; 93312; 93320; 93325; 93458; 94660; 94760; 96365; 96367; 96372; 96374; 96375; 96376; 99152; 99153; 99285; A4222; C1769; C1887; C1894; J0282; J0283; J1160; J1644; J1650; J1938; J1940; J2250; J2405; J2470; J2704; J3010; J3475; J3490; J7030; J9999; Q0163; Q9967

== ENCOUNTER → 2024-07-31 13:09 | Outpatient (BNVA) | payer MEDICARE, SELFPAY | PROVIDERS: PCP Internal Medicine; Visit Provider Nurse Practitioner Family | DX: I11.0 Hypertensive heart disease with heart failure (principal) | CPT/HCPCS: 36415; 80053; 83880; 85025; 99214 ==

== ENCOUNTER → 2024-09-02 07:17 | Outpatient (BNVA) | payer MEDICARE, SELFPAY | PROVIDERS: PCP Internal Medicine; Visit Provider Nurse Practitioner Family | DX: I11.0 Hypertensive heart disease with heart failure (principal); I50.20 Unspecified systolic (congestive) heart failure; I25.10 Atherosclerotic heart disease of native coronary artery without angina pectoris; I48.0 Paroxysmal atrial fibrillation; Z79.01 Long term (current) use of anticoagulants; G47.30 Sleep apnea, unspecified; I42.9 Cardiomyopathy, unspecified; F17.200 Nicotine dependence, unspecified, uncomplicated | CPT/HCPCS: 36415; 80048; 80162; 99214 ==

== ENCOUNTER 2024-09-12 13:14 | Outpatient (CLI) | payer MEDICARE, SELFPAY ==
--- NOTE | 2024-09-12 13:30 | USCV_ITS ---
Lauren Thornton Age: 73 Gender: M : 1950 Exam Date: 09/12/2024 13:46 Ordering Phys: Zoe Arias NP Technologist: PANCHO Exam Location: [facility] [place] Indication: Systolic Heart Failure BP: 132 / 77 HR: 74 Rhythm: Sinus Technical Quality: Adequate MEASUREMENTS (Male / Female) Normal Values 2D ECHO LV Diastolic Diameter PLAX 5.9 cm 4.2 - 5.9 / 3.9 - 5.3 cm IVS Diastolic Thickness 1.1 cm 0.6 - 1.0 / 0.6 - 0.9 cm IVS Systolic Thickness 1.2 cm LVPW Diastolic Thickness 1.1 cm 0.6 - 1.0 / 0.6 - 0.9 cm LVPW Systolic Thickness 1.3 cm LVOT Diameter 2.0 cm LV Ejection Fraction 2D Teich 53.7 % LV Ejection Fraction MOD 4C 43.7 % LV Ejection Fraction MOD 2C 46.2 % LV Ejection Fraction 2C AL 48.8 % LA Diameter 4.8 cm RA Systolic Volume 4C AL 85.4 ml RA Systolic Volume 4C MOD 81.8 ml LA Sys Volume AL 61.9 cm cubed LA Sys Volume Index AL 30.4 cm cubed/m squared Aorta at Sinotubular Diameter 2.9 cm IVC Diameter 2.1 cm M-MODE LA Ao Ratio MM 1.8 AV Cusp Separation MM 1.6 cm DOPPLER AV Peak Velocity 111.3 cm/s LVOT Peak Velocity 66.0 cm/s AV Area Cont Eq vti 2.0 cm squared AV Area Cont Eq pk 1.8 cm squared MV Peak Velocity 107.0 cm/s MV Area PHT 5.1 cm squared Mitral E to A Ratio 2.2 TV Peak Velocity 188.0 cm/s TR Peak Velocity 256.0 cm/s TR Peak Gradient 26.2 mmHg TV Peak E Velocity 91.0 cm/s FINDINGS Left Ventricle Left ventricle is normal in size. LV systolic function is mildly reduced with EF of 40-45%. Mild global hypokinesis. Grade 3 diastolic dysfunction Right Ventricle Normal in size and function Right Atrium Dilated Left Atrium Dilated Mitral Valve Structurally normal valve. Mild mitral regurgitation Aortic Valve Aortic valve is thickened. No significant stenosis or regurgitation Tricuspid Valve Mild tricuspid regurgitation. Pulmonary artery systolic pressure is normal Pulmonic Valve Not well-visualized Pericardium Normal Aorta Normal in size IVC Appears dilated CONCLUSIONS LV systolic function is mildly reduced with EF of 40-45% Grade 3 diastolic dysfunction. Biatrial enlargement. Mild mitral regurgitation. Mild tricuspid regurgitation. IVC appears dilated Compared to prior echocardiogram, LV systolic function has improved. Charles Malik MD (Electronically Signed) Final Date: 26 September 2024 13:50 S
== END 2024-09-12 13:15 | disposition home or self-care (01) ==
LOC: RAD 13:16
PROVIDERS: PCP Internal Medicine; Visit Provider Nurse Practitioner Family
DX: I10 Essential (primary) hypertension (principal); R93.1 Abnormal findings on diagnostic imaging of heart and coronary circulation; I35.8 Other nonrheumatic aortic valve disorders; I34.0 Nonrheumatic mitral (valve) insufficiency; I07.1 Rheumatic tricuspid insufficiency
CPT/HCPCS: 93306

== ENCOUNTER → 2024-12-04 14:28 | Outpatient (BNVA) | payer MEDICARE, SELFPAY | PROVIDERS: PCP Internal Medicine; Visit Provider Internal Medicine | DX: I48.91 Unspecified atrial fibrillation (principal); I11.0 Hypertensive heart disease with heart failure; I50.9 Heart failure, unspecified; Z72.0 Tobacco use; Z79.01 Long term (current) use of anticoagulants | CPT/HCPCS: 99214 ==